=== PATIENT | male | born 1945 | race Caucasian/White ===

== ENCOUNTER 2016-06-12 17:38 | Emergency (ER) | payer MEDICARE ==
[~2016-06-12] VITALS: Ht 175.3 cm; Wt 81.6 kg
[~2016-06-12 17:38] MED LIST: CIPR-226 PO
--- OUTSIDE RECORDS SUMMARY | 2016-06-12 17:44 | XMS REPORT | Continuity of Care Document ---
Author Author [facility] Organization [facility] Address Unknown Phone Unavailable Allergies Medications Problems Date Dx Coded Attending Type Code Diagnosis Diagnosed By 06/11/2015 RESHMA CAM APRN Ot N20.0 06/11/2015 RESHMA CAM APRN Ot N28.9 06/11/2015 RESHMA CAM APRN Ot N40.1 06/11/2015 RESHMA CAM APRN Ot R91.8 Procedures Results Encounters ACCT No. Visit Date/Time Discharge Status Pt. Type Provider Facility Loc./Unit Complaint [id number] 06/11/2015 17:45:00 2015 19:33:00 DIS Emergency RESHMA CAM APRN [facility] ER [id number] 06/12/2016 17:39:00 ACT Emergency MICHAELLE MARSH, MINO Medrano [facility] ER CP
[2016-06-12 18:08] LABS: BASOPHILS # (AUTO) 0.1 10^3/uL (0.0-0.1); BASOPHILS % (AUTO) 1 % (0-10); EOSINOPHILS # (AUTO) 0.1 10^3/uL (0.0-0.3); EOSINOPHILS % (AUTO) 1 % (0-10); LYMPHOCYTES # (AUTO) 1.7 X 10^3 (1.0-4.0); LYMPHOCYTES % (AUTO) 15 % (12-44); MEAN CORPUSCULAR HEMOGLOBIN 29 PG (25-34); MEAN CORPUSCULAR HGB CONC 33 G/DL (32-36); MEAN CORPUSCULAR VOLUME 86 FL (80-99); MEAN PLATELET VOLUME 9.1 FL (7.4-10.4); MONOCYTES # (AUTO) 0.5 X 10^3 (0.0-1.0); MONOCYTES % (AUTO) 5 % (0-12); NEUTROPHILS # (AUTO) 8.8 X 10^3 (1.8-7.8); NEUTROPHILS % (AUTO) 79 % (42-75); PLATELET COUNT 343 10^3/uL (130-400); RED BLOOD COUNT 5.15 10^6/uL (4.35-5.85); WHITE BLOOD COUNT 11.1 10^3/uL (4.3-11.0)
[2016-06-12 18:11] LABS: PROTHROMBIN TIME PATIENT 12.9 SEC (12.2-14.7)
[2016-06-12] MEDS: ASPIRIN 81 MG CHEW (CHILDREN'S ASA) PO ONE (18:18)
[2016-06-12] MEDS: KETOROLAC 30 MG/ML VIAL IVP ONE (18:18)
[2016-06-12 18:19] LABS: ALANINE AMINOTRANSFERASE 20 U/L (0-55); ANION GAP 9 MMOL/L (5-14); ASPARTATE AMINO TRANSFERASE 22 U/L (5-34); BILIRUBIN,TOTAL 1.1 MG/DL (0.1-1.0); BLOOD UREA NITROGEN 16 MG/DL (7-18); BUN/CREATININE RATIO 18; CARBON DIOXIDE 23 MMOL/L (21-32); CHLORIDE 108 MMOL/L (98-107); CREATININE SERUM 0.87 MG/DL (0.60-1.30); GFR ESTIMATED > 60; GLUCOSE 113 MG/DL (70-105); MAGNESIUM 1.9 MG/DL (1.8-2.4); POTASSIUM 4.2 MMOL/L (3.6-5.0); SODIUM 140 MMOL/L (135-145)
[2016-06-12 18:26] LABS: MYOGLOBIN SERUM 73.4 NG/ML (10.0-92.0)
--- NOTE | 2016-06-12 18:49 | Diagnostic Imaging Report ---
EXAM: CHEST PA/LAT (2 VIEW) INDICATION: Chest pain. COMPARISON: None. FINDINGS: Normal heart size and pulmonary vascularity. No focal pulmonary opacity, pleural effusion or pneumothorax. Calcified aorta. No acute osseous findings. IMPRESSION: No acute cardiopulmonary findings. Dictated by: Dictated on workstation # [id number]
[2016-06-12] MEDS: IOHEXOL 350 MG/ML 150 ML (OMNIPAQUE 350) VIAL IV ONE (18:51)
[2016-06-12] MEDS: CATHETER FLUSH 10 ML SYR IV PRN (18:51)
[2016-06-12] MEDS: NS 100 ML (IVPB) BAG IV ONE (18:51)
--- NOTE | 2016-06-12 19:02 | ED Chest Pain ---
General Chief Complaint: Chest Pain Stated Complaint: CP Nursing Triage Note: c/o dizziness, chest pain, and cough. Feels weak. Chills reported. Vomited x 2. Onset 1300 today Nursing Sepsis Screen: No Definite Risk Source: patient, EMS Exam Limitations: no limitations History of Present Illness Time seen by provider: 17:47 Initial Comments This 70-year-old gentleman presents to the emergency room with complaints of chest pain to the right of the sternum that is tender to palpation. It started this morning and is rated as 4/10. He also complains of a vertigo or dizziness described as a spinning sensation. The dizziness is worse with head movement. His chest pain is constant. He also remarks intermittent chronic chest pain with inspiration which he attributes to prior rib injuries. His present chest pain is more intense and longer lasting than he is used to. He vomited 2 today as well. He reports mild cough today. He reports having chronic chills at night. Review of his chart notes a CT scan performed a year ago noting pulmonary nodules in the right lower lung. He has not had follow-up as instructed regarding these nodules. She has no focal neurologic complaints associated with his dizziness. Allergies and Home Medications Allergies Coded Allergies: No Known Drug Allergies (Unverified , 06/12/16) Home Medications Ciprofloxacin HCl 250 Mg Tablet #14 250 MG PO BID Prescribed by: RESHMA CAM on 06/11/151909 Meclizine HCl 25 Mg Tablet #20 25 MG PO TID PRN PRN DIZZINESS Prescribed by: KIRBY DECKER on 06/12/161957 Review of Systems Constitutional: no symptoms reported EENTM: No Symptoms Reported Respiratory: See HPI Cardiovascular: No Symptoms Reported Gastrointestinal: See HPI Genitourinary: No Symptoms Reported Musculoskeletal: see HPI Skin: no symptoms reported Psychiatric/Neurological: See HPI Endocrine: No Symptoms Reported Past Exwhgxh-Sspzko-Hbproc Hx Patient Social History Alcohol Use: Denies Use Recreational Drug Use: No Smoking Status: Former Smoker Former Smoker/When Quit: Jan 24, 2014 Recent Foreign Travel: No Contact w/Someone Who Travel: No Recent Infectious Disease Expo: No Recent Hopitalizations: No Immunizations Up To Date Tetanus Booster (TDap): More than 5yrs Seasonal Allergies Seasonal Allergies: Yes Surgeries HX Surgeries: Yes (bilateral carpal tunnel/hernia repair) Surgeries: Abdominal (hernia repair), Orthopedic (carpal tunnel) Respiratory Hx Respiratory Disorders: No Cardiovascular Hx Cardiac Disorders: No Neurological Hx Neurological Disorders: No Genitourinary Hx Genitourinary Disorders: Yes Genitourinary Disorders: Benign Prostatic Hyperpl Gastrointestinal Hx Gastrointestinal Disorders: Yes (pt was just constipated up until yesterday) Musculoskeletal Hx Musculoskeletal Disorders: No Endocrine Hx Endocrine Disorders: No HEENT HX ENT Disorders: No Cancer Hx Cancer: No Psychosocial Hx Psychiatric Problems: Yes Behavioral Health Disorders: Depression Integumentary HX Skin/Integumentary Disorder: No Blood Transfusions Hx Blood Disorders: No Family Medical History Family Medial History: Patient reports no known family medical history. Physical Exam Vital Signs Vital Sign - Last 12Hours 06/12/16 17:45 Temp 98.1 Pulse 83 Resp 18 B/P 137/87 Pulse Ox 96 O2 Delivery Room Air Capillary Refill : Less Than 3 Seconds General Appearance: No Apparent Distress WD/WN HEENT: PERRL/EOMI Normal ENT Inspection Neck: Normal Inspection Respiratory: Lungs Clear Normal Breath Sounds No Accessory Muscle Use No Respiratory Distress Other (right lower anterior chest tender to palpation) Cardiovascular: Regular Rate, Rhythm No Edema No Murmur Normal Peripheral Pulses Gastrointestinal: Normal Bowel Sounds No Organomegaly Soft Tenderness (mild in the epigastrium and right upper quadrant) Extremity: Normal Inspection Non Tender No Calf Tenderness No Pedal Edema Other (negative Lilia) Neurologic/Psychiatric: Alert Oriented x3 No Motor/Sensory Deficits Normal 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-XII Norm as Tested Skin: Normal Color Warm/Dry Progress/Results/Core Measures Results/Orders Lab Results Laboratory Tests Test 06/12/16 17:48 Range/Units Activated Partial Thromboplast Time 27 24-35 SEC Alanine Aminotransferase (ALT/SGPT) 20 0-55 U/L Albumin 4.0 3.2-4.5 G/DL Alkaline Phosphatase 104 40-136 U/L Anion Gap 9 5-14 MMOL/L Aspartate Amino Transf (AST/SGOT) 22 5-34 U/L BUN/Creatinine Ratio 18 Basophils # (Auto) 0.1 0.0-0.1 10^3/uL Basophils (%) (Auto) 1 0-10 % Blood Urea Nitrogen 16 7-18 MG/DL Calcium Level 9.0 8.5-10.1 MG/DL Carbon Dioxide Level 23 21-32 MMOL/L Chloride Level 108 H 98-107 MMOL/L Creatinine 0.87 0.60-1.30 MG/DL Eosinophils # (Auto) 0.1 0.0-0.3 10^3/uL Eosinophils (%) (Auto) 1 0-10 % Estimat Glomerular Filtration Rate > 60 Glucose Level 113 H 70-105 MG/DL Hematocrit 45 40-54 % Hemoglobin 14.8 13.3-17.7 G/DL INR Comment 1.0 0.8-1.4 Lipase 11 8-78 U/L Lymphocytes # (Auto) 1.7 1.0-4.0 X 10^3 Lymphocytes (%) (Auto) 15 12-44 % Magnesium Level 1.9 1.8-2.4 MG/DL Mean Corpuscular Hemoglobin 29 25-34 PG Mean Corpuscular Hemoglobin Concent 33 32-36 G/DL Mean Corpuscular Volume 86 80-99 FL Mean Platelet Volume 9.1 7.4-10.4 FL Monocytes # (Auto) 0.5 0.0-1.0 X 10^3 Monocytes (%) (Auto) 5 0-12 % Myoglobin 73.4 10.0-92.0 NG/ML Neutrophils # (Auto) 8.8 H 1.8-7.8 X 10^3 Neutrophils (%) (Auto) 79 H 42-75 % Platelet Count 343 130-400 10^3/uL Potassium Level 4.2 3.6-5.0 MMOL/L Prothrombin Time 12.9 12.2-14.7 SEC Red Blood Count 5.15 4.35-5.85 10^6/uL Red Cell Distribution Width 13.0 10.0-14.5 % Sodium Level 140 135-145 MMOL/L Total Bilirubin 1.1 H 0.1-1.0 MG/DL Total Protein 7.0 6.4-8.2 G/DL Troponin I < 0.30 <0.30 NG/ML White Blood Count 11.1 H 4.3-11.0 10^3/uL My Orders Orders-KIRBY SOLORZANO MD Cbc With Automated Diff (06/12/16 17:58) Magnesium (06/12/16 17:58) Ekg Tracing (06/12/16 17:58) Cardiac Profile 1 (06/12/16 17:58) Comprehensive Metabolic Panel (06/12/16 17:58) Myoglobin Serum (06/12/16 17:58) Protime With Inr (06/12/16 17:58) Partial Thromboplastin Time (06/12/16 17:58) O2 (06/12/16 17:58) Monitor-Rhythm Ecg Trace Only (06/12/16 17:58) Aspirin Chewable Tablet (Baby Aspirin Ch (06/12/16 18:00) Saline Lock/Iv-Start (06/12/16 17:58) Chest Pa/Lat (2 View) (06/12/16 17:58) Ketorolac Injection (Toradol Injection) (06/12/16 18:00) Lipase (06/12/16 18:02) Ct Angio Chest W (06/12/16 18:30) Iohexol Injection (Omnipaque 350 Mg/Ml 1 (06/12/16 18:45) Di Iv Start (Assessment) .on IV start (06/12/16 18:44) Sodium Chloride Flush (Catheter Flush Sy (06/12/16 18:45) Ns (Ivpb) (Sodium Chloride 0.9% Ivpb Bag (06/12/16 18:45) Meclizine Tablet (Antivert Tablet) (06/12/16 19:15) Medications Given in ED Current Medications Medications Dose Ordered Sig/Kisha Route Start Time Stop Time Status Last Admin Dose Admin Aspirin 324 mg ONCE ONCE PO 06/12/16 18:00 06/12/16 18:03 DC 06/12/16 18:18 324 MG Iohexol 150 ml ONCE ONCE IV 06/12/16 18:45 06/12/16 18:46 DC 06/12/16 18:51 125 ML Ketorolac Tromethamine 15 mg ONCE ONCE IVP 06/12/16 18:00 06/12/16 18:03 DC 06/12/16 18:18 15 MG Meclizine HCl 25 mg ONCE ONCE PO 06/12/16 19:15 06/12/16 19:16 DC 06/12/16 19:28 25 MG Sodium Chloride 100 ml ONCE ONCE IV 06/12/16 18:45 06/12/16 18:46 DC 06/12/16 18:51 80 ML Vital Signs/I&O Vital Sign - Last 12Hours 06/12/16 06/12/16 06/12/16/10/17 17:45 17:50 18:18 18:18 Temp 98.1 98.1 98.1 Pulse 83 Resp 18 B/P 137/87 Pulse Ox 96 O2 Delivery Room Air Room Air 06/12/16 20:02 Temp 98.7 Pulse 68 Resp 14 Pulse Ox 98 Blood Pressure Mean: 104 Progress Note #1: Time: 19:01 Progress Note Patient's pain has improved to 2/10 with administration of Toradol. CT angiogram of the chest is being performed to further evaluate for this atypical chest pain and prior history of pulmonary nodules found on CT 2 years ago. Patient has not yet had follow-up on those nodules despite recommendations to do so on his prior ER visit. Dizziness has improved without any particular treatment. Meclizine will be ordered for the residual dizziness. Progress Note #2: Time: 19:55 Progress Note Chest pain completely resolved with Toradol. Dizziness resolved with meclizine. CT angiogram was negative for pulmonary embolus. Pulmonary nodules are stable. Repeat CT in one year recommended. ECG Initial ECG Impression Date: Jun 12, 2016 Initial ECG Impression Time: 17:46 Initial ECG Rate: 83 Initial ECG Rhythm: Normal Sinus Comment Normal sinus rhythm with no ST elevation or depression. No abnormal intervals. Borderline left axis deviation. Diagnostic Imaging Diagonstic Imaging: Xray Plain Films/CT/US/NM/MRI: chest Comments Chest x-ray viewed by me and report reviewed. See report below: NAME: MIHIR RAPP [facility] REC#: [id number] PT STATUS: REG ER : 1945 PHYSICIAN: KIRBY SOLORZANO MD ADMIT DATE: 06/12/16/ER Draft Date of Exam:06/12/16 CHEST PA/LAT (2 VIEW) EXAM: CHEST PA/LAT (2 VIEW) INDICATION: Chest pain. COMPARISON: None. FINDINGS: Normal heart size and pulmonary vascularity. No focal pulmonary opacity, pleural effusion or pneumothorax. Calcified aorta. No acute osseous findings. IMPRESSION: No acute cardiopulmonary findings. Dictated on workstation # [id number] Dict: 06/12/16 1846 Trans: 06/12/16 1848 [facility] [id number] Interpreted by: ALIYA DOW MD Diagonstic Imaging: CT Plain Films/CT/US/NM/MRI: chest Comments CT angiogram of the chest viewed by me and report reviewed. See report below: NAME: MIHIR RAPP [facility] REC#: [id number] PT STATUS: REG ER : 1945 PHYSICIAN: KIRBY SOLORZANO MD ADMIT DATE: 06/12/16/ER Draft Date of Exam:06/12/16 CT ANGIO CHEST W PROCEDURE: CT angiography of the chest with contrast. TECHNIQUE: Multiple contiguous axial images were obtained through the chest after uneventful bolus administration of intravenous contrast. Reconstructed CTA MIP acquisitions were also performed. DATE: June 12, 2016. COMPARISON: Chest radiographs June 12, 2016. CT abdomen and pelvis June 11, 2015. INDICATION: 70-year-old male, right-sided chest pain. History of right lower lobe pulmonary nodules. FINDINGS: There is a right lower lobe pulmonary nodule on axial image 104 which measures 7.6 mm in size. This is unchanged since June 11, 2015. There is no additional identified pulmonary nodule. There is no new or enlarging pulmonary nodule. There is no focal airspace consolidation. There is no pneumothorax. There is no pleural effusion. The central airways are patent. There is no identified pulmonary embolus. The main pulmonary artery is not abnormally enlarged. Aortic contours are unremarkable. There is no evidence of acute aortic injury or aortic dissection. The heart is not enlarged. There is no identified pericardial effusion. There is no identified abnormally enlarged mediastinal, hilar, or axillary lymph node which specifically meets CT size criteria for adenopathy. There are calcified left hilar and AP window lymph nodes likely relating to sequela of prior granulomatous disease. There are subcentimeter short axis axillary lymph nodes. There is a lobulated mass-like area extending near the skin surface of the right anterior chest on axial image 60 which measures 2.0 x 1.5 cm in size. This is also noted on the left. This likely relates to gynecomastia bilaterally. There is an incompletely visualized low-attenuation right renal lesion compatible with a cyst in its visualized portions. There is an additional partially visualized probable right renal cyst. There is a small hiatal hernia. There are paraesophageal lymph nodes on axial image 103 which measure up to 9 mm in short axis. There is no CT apparent prominent wall thickening of the esophagus. There is no identified acute bony abnormality. IMPRESSION: CT CHEST. 1. No identified acute cardiopulmonary abnormality. 2. 7 mm right lower lobe pulmonary nodule stable since June 11, 2015. Recommend followup dedicated CT chest in one year to evaluate for two-year stability. 3. Small hiatal hernia. 4. Nonspecific paraesophageal lymph node without identified prominent esophageal wall thickening. Dictated on workstation # [id number] Dict: 06/12/161917 Trans: 06/12/161926 [facility] [id number] Interpreted by: MAGY BEARD MD Departure Impression Impression: Primary Impression: Chest wall pain Additional Impression: Vertigo Disposition: HOME, SELF-CARE Condition: Improved Departure-Patient Inst. Decision time for Depature: 19:00 Referrals: NO,LOCAL PHYSICIAN (PCP/Family) Primary Care Physician Patient Instructions: Chest Pain That Is Not Caused by the Heart (DC), Vertigo (a Type of Dizziness) Add. Discharge Instructions: Follow-up with your primary care provider as soon as possible. You need to develop a plan for follow-up on the pulmonary nodules we discussed. The radiologist has recommended a CT scan in one year to document 2 year progression. For dizziness you may take meclizine as prescribed. For chest pain take ibuprofen up to 600 mg every 6 hours as needed. Add Tylenol up to 1000 mg every 6 hours as needed. Return to emergency room if symptoms worsen. All discharge instructions reviewed with patient and/or family. Voiced understanding. Scripts Meclizine HCl 25 Mg [id number] Mg PO TID PRN DIZZINESS #20 TAB Prov:KIRBY SOLORZANO MD 06/12/16 KIRBY SOLORZANO MD Jun 12, 2016 19:02
[2016-06-12] MEDS: MECLIZINE 25 MG (ANTIVERT) TAB PO ONE (19:28)
--- NOTE | 2016-06-12 19:28 | Diagnostic Imaging Report ---
PROCEDURE: CT angiography of the chest with contrast. TECHNIQUE: Multiple contiguous axial images were obtained through the chest after uneventful bolus administration of intravenous contrast. Reconstructed CTA MIP acquisitions were also performed. DATE: June 12, 2016. COMPARISON: Chest radiographs June 12, 2016. CT abdomen and pelvis June 11, 2015. INDICATION: 70-year-old male, right-sided chest pain. History of right lower lobe pulmonary nodules. FINDINGS: There is a right lower lobe pulmonary nodule on axial image 104 which measures 7.6 mm in size. This is unchanged since June 11, 2015. There is no additional identified pulmonary nodule. There is no new or enlarging pulmonary nodule. There is no focal airspace consolidation. There is no pneumothorax. There is no pleural effusion. The central airways are patent. There is no identified pulmonary embolus. The main pulmonary artery is not abnormally enlarged. Aortic contours are unremarkable. There is no evidence of acute aortic injury or aortic dissection. The heart is not enlarged. There is no identified pericardial effusion. There is no identified abnormally enlarged mediastinal, hilar, or axillary lymph node which specifically meets CT size criteria for adenopathy. There are calcified left hilar and AP window lymph nodes likely relating to sequela of prior granulomatous disease. There are subcentimeter short axis axillary lymph nodes. There is a lobulated mass-like area extending near the skin surface of the right anterior chest on axial image 60 which measures 2.0 x 1.5 cm in size. This is also noted on the left. This likely relates to gynecomastia bilaterally. There is an incompletely visualized low-attenuation right renal lesion compatible with a cyst in its visualized portions. There is an additional partially visualized probable right renal cyst. There is a small hiatal hernia. There are paraesophageal lymph nodes on axial image 103 which measure up to 9 mm in short axis. There is no CT apparent prominent wall thickening of the esophagus. There is no identified acute bony abnormality. IMPRESSION: CT CHEST. 1. No identified acute cardiopulmonary abnormality. 2. 7 mm right lower lobe pulmonary nodule stable since June 11, 2015. Recommend followup dedicated CT chest in one year to evaluate for two-year stability. 3. Small hiatal hernia. 4. Nonspecific paraesophageal lymph node without identified prominent esophageal wall thickening. Dictated by: Dictated on workstation # [id number]
[2016-06-12] MEDS ORDERED: MECL-106 PO (19:58)
[2016-06-12 20:02] VITALS: BP 149/73
== END 2016-06-12 20:07 | disposition home or self-care (01) ==
LOC: EDUNIT# 17:38 → ER 17:39
DX: R07.89 Other chest pain (principal); R42 Dizziness and giddiness; R91.8 Other nonspecific abnormal finding of lung field; K44.9 Diaphragmatic hernia without obstruction or gangrene; R59.0 Localized enlarged lymph nodes
CPT/HCPCS: 36415; 71020; 71275; 80053; 83690; 83735; 83874; 84484; 85025; 85610; 85730; 93005; 93041; 96374

== ENCOUNTER 2016-10-01 20:54 | Emergency (ER) | payer MEDICARE ==
[~2016-10-01] VITALS: Ht 175.3 cm; Wt 81.6 kg
[~2016-10-01 20:54] MED LIST changes: +MECL-106 PO
[2016-10-01 21:11] LABS: MEAN PLATELET VOLUME 8.6 FL (7.4-10.4); RED BLOOD COUNT 5.01 10^6/uL (4.35-5.85); RED CELL DISTRIBUTION WIDTH 13.3 % (10.0-14.5); WHITE BLOOD COUNT 15.6 10^3/uL (4.3-11.0)
[2016-10-01] MEDS ORDERED: NS 100 ML (IVPB) BAG IV ONE (21:15)
[2016-10-01] MEDS ORDERED: IOHEXOL 350 MG/ML 100 ML (OMNIPAQUE 350) VIAL IV ONE (21:15)
[2016-10-01] MEDS ORDERED: CATHETER FLUSH 10 ML SYR IV PRN (21:15)
--- OUTSIDE RECORDS SUMMARY | 2016-10-01 21:18 | XMS REPORT | Continuity of Care Document ---
Author Author [facility] Organization [facility] Address Unknown Phone Unavailable Allergies Active Description Code Type Severity Reaction Onset Reported/Identified Relationship to Patient Clinical Status Yes No Known Drug Allergies [id number] Drug Allergy Unknown N/ A 06/12/2016 Medications Problems Date Dx Coded Attending Type Code Diagnosis Diagnosed By 06/11/2015 RESHMA CAM SODIUM METHYLATE OPERATOR Ot N20.0 06/11/2015 RESHMA CAM SODIUM METHYLATE OPERATOR Ot N28.9 06/11/2015 RESHMA CAM SODIUM METHYLATE OPERATOR Ot N40.1 06/11/2015 RESHMA CAM SODIUM METHYLATE OPERATOR Ot R91.8 06/12/2016 KIRBY SOLORZANO MD T Ot K44.9 DIAPHRAGMATIC HERNIA WITHOUT OBSTRUCTION 06/12/2016 KIRBY SOLORZANO MD T Ot R07.89 OTHER CHEST PAIN 06/12/2016 KIRBY SOLORZANO MD T Ot R07.9 CHEST PAIN, UNSPECIFIED 06/12/2016 KIRBY SOLORZANO MD T Ot R42 DIZZINESS AND GIDDINESS 06/12/2016 KIRBY SOLORZANO MD T Ot R59.0 LOCALIZED ENLARGED LYMPH NODES 06/12/2016 KIRBY SOLORZANO MD T Ot R91.8 OTHER NONSPECIFIC ABNORMAL FINDING OF PJ 06/14/2016 KIRBY SOLORZANO MD T Ot K44.9 DIAPHRAGMATIC HERNIA WITHOUT OBSTRUCTION 06/14/2016 KIRBY SOLORZANO MD T Ot R07.89 OTHER CHEST PAIN 06/14/2016 KIRBY SOLORZANO MD T Ot R07.9 CHEST PAIN, UNSPECIFIED 06/14/2016 KIRBY SOLORZANO MD T Ot R42 DIZZINESS AND GIDDINESS 06/14/2016 KIRBY SOLORZNAO MD T Ot R59.0 LOCALIZED ENLARGED LYMPH NODES 06/14/2016 KIRBY SOLORZANO MD T Ot R91.8 OTHER NONSPECIFIC ABNORMAL FINDING OF PJ Procedures Results Test Result Range Complete blood count (CBC) with automated white blood cell (WBC) differential - 06/12/16 17:48 Blood leukocytes automated count (number/volume) 11.1 10*3/ uL 4.3-11.0 Blood erythrocytes automated count (number/volume) 5.15 10*6 /uL 4.35-5.85 Venous blood hemoglobin measurement (mass/volume) 14.8 g/dL 13.3-17.7 Blood hematocrit (volume fraction) 45 % 40-54 Automated erythrocyte mean corpuscular volume 86 [foz_us] 80-99 Automated erythrocyte mean corpuscular hemoglobin (mass per erythrocyte) 29 pg 25-34 Automated erythrocyte mean corpuscular hemoglobin concentration measurement ( mass/volume) 33 g/dL 32-36 Automated erythrocyte distribution width ratio 13.0 % 10.0-14.5 Automated blood platelet count (count/volume) 343 10*3/uL 130-400 Automated blood platelet mean volume measurement 9.1 [foz_us ] 7.4-10.4 Automated blood neutrophils/100 leukocytes 79 % 42-75 Automated blood lymphocytes/100 leukocytes 15 % 12-44 Blood monocytes/100 leukocytes 5 % 0-12 Automated blood eosinophils/100 leukocytes 1 % 0-10 Automated blood basophils/100 leukocytes 1 % 0-10 Blood neutrophils automated count (number/volume) 8.8 10*3 1.8-7.8 Blood lymphocytes automated count (number/volume) 1.7 10*3 1.0-4.0 Blood monocytes automated count (number/volume) 0.5 10*3 0.0-1.0 Automated eosinophil count 0.1 10*3/uL 0.0-0.3 Automated blood basophil count (count/volume) 0.1 10*3/uL 0.0-0.1 PT panel in platelet poor plasma by coagulation assay - 06/12/16 17:48 Prothrombin time (PT) in platelet poor plasma by coagulation assay 12.9 s 12.2-14.7 INR in platelet poor plasma or blood by coagulation assay 1.0 0.8-1.4 Activated partial thromboplastin time (aPTT) in platelet poor plasma bycoagulation assay - 06/12/16 17:48 Activated partial thromboplastin time (aPTT) in platelet poor plasma bycoagulation assay 27 s 24-35 Comprehensive metabolic panel - 06/12/16 17:48 Serum or plasma sodium measurement (moles/volume) 140 mmol/ L 135-145 Serum or plasma potassium measurement (moles/volume) 4.2 mmol/L 3.6-5.0 Serum or plasma chloride measurement (moles/volume) 108 mmol /L 98-107 Carbon dioxide 23 mmol/L 21-32 Serum or plasma anion gap determination (moles/volume) 9 mmol/L 5-14 Serum or plasma urea nitrogen measurement (mass/volume) 16 mg/dL 7-18 Serum or plasma creatinine measurement (mass/volume) 0.87 mg /dL 0.60-1.30 Serum or plasma urea nitrogen/creatinine mass ratio 18 NRG Serum or plasma creatinine measurement with calculation of estimated glomerular filtration rate > NRG Serum or plasma glucose measurement (mass/volume) 113 mg/dL 70-105 Serum or plasma calcium measurement (mass/volume) 9.0 mg/dL 8.5-10.1 Serum or plasma total bilirubin measurement (mass/volume) 1.1 mg/dL 0.1-1.0 Serum or plasma alkaline phosphatase measurement (enzymatic activity/volume) 104 U/L 40-136 Serum or plasma aspartate aminotransferase measurement (enzymatic activity/ volume) 22 U/L 5-34 Serum or plasma alanine aminotransferase measurement (enzymatic activity/volume ) 20 U/L 0-55 Serum or plasma protein measurement (mass/volume) 7.0 g/dL 6.4-8.2 Serum or plasma albumin measurement (mass/volume) 4.0 g/dL 3.2-4.5 Magnesium - 06/12/16 17:48 Magnesium 1.9 mg/dL 1.8-2.4 Lipase - 06/12/16 17:48 Lipase 11 U/L 8-78 Serum or plasma troponin i.cardiac measurement (mass/volume) - 06/12/16 17:48 Serum or plasma troponin i.cardiac measurement (mass/volume) < ng/mL <0.30 Myoglobin, serum - 06/12/16 17:48 Myoglobin, serum 73.4 ng/mL 10.0-92.0 Encounters ACCT No. Visit Date/Time Discharge Status Pt. Type Provider Facility Loc./Unit Complaint [id number] 06/12/2016 17:39:00 2016 20:07:00 DIS Emergency JEANINE MARSH, KIRBY Pablo [facility] ER [id number] 06/11/2015 17:45:00 2015 19:33:00 DIS Emergency RESHMA CAM APRN [facility] ER
[2016-10-01] MEDS ORDERED: TETANUS,DIPTH,PERTUSS P/F (BOOSTRIX) 0.5 ML VIAL IM ONE (21:30)
[2016-10-01] MEDS ORDERED: ceFAZolin 2 GM/50 ML NS 50 ML IV ONE (21:30)
[2016-10-01 21:35] LABS: ALANINE AMINOTRANSFERASE 29 U/L (0-55); ALBUMIN 3.5 GM/DL (3.2-4.5); ALCOHOL < 10 MG/DL (<10); ASPARTATE AMINO TRANSFERASE 33 U/L (5-34); BILIRUBIN,DIRECT 0.2 MG/DL (0.0-0.3); BILIRUBIN,INDIRECT 0.7 MG/DL; BILIRUBIN,TOTAL 0.9 MG/DL (0.1-1.0); BLOOD UREA NITROGEN 14 MG/DL (7-18); BUN/CREATININE RATIO 14; CALCIUM 8.6 MG/DL (8.5-10.1); CARBON DIOXIDE 19 MMOL/L (21-32); CREATININE SERUM 0.97 MG/DL (0.60-1.30); GFR ESTIMATED > 60; GLUCOSE 142 MG/DL (70-105); TOTAL PROTEIN 6.7 GM/DL (6.4-8.2)
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
[2016-10-01 21:41] LABS: ANION GAP 11 MMOL/L (5-14); CHLORIDE 112 MMOL/L (98-107); POTASSIUM 3.3 MMOL/L (3.6-5.0); SODIUM 142 MMOL/L (135-145)
[2016-10-01] MEDS ORDERED: TRANEXAMIC ACID INJECTION 1,000 MG in NS (IVPB) 250 ML IV SCH (21:45)
[2016-10-01] MEDS ORDERED: TRANEXAMIC ACID INJECTION 1,000 MG in NS (IVPB) 50 ML IV ONE (21:45)
[2016-10-01] MEDS ORDERED: ONDANSETRON 4 MG/2 ML (SDV) Z0FRAN ONE (21:58)
[2016-10-01] MEDS ORDERED: fentaNYL INJECTION 100 MCG/2 ML AMP IVP ONE (22:00)
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
[2016-10-01] MEDS ORDERED: ONDANSETRON 4 MG/2 ML (SDV) Z0FRAN IVP ONE (22:15)
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
[2016-10-01 22:31] VITALS: BP 150/72
[2016-10-01] MEDS ORDERED: TAMS0.4C2 (23:54)
== END 2016-10-01 22:31 | disposition short-term general hospital (02) ==
LOC: EDUNIT# 20:54 → ER 20:55
DX: S02.32XA Fracture of orbital floor, left side, initial encounter for closed fracture (principal); S02.82XA Fracture of other specified skull and facial bones, left side, initial encounter for closed fracture; S02.19XA Other fracture of base of skull, initial encounter for closed fracture; S06.0X1A Concussion with loss of consciousness of 30 minutes or less, initial encounter; S22.42XA Multiple fractures of ribs, left side, initial encounter for closed fracture; S27.321A Contusion of lung, unilateral, initial encounter; S51.822A Laceration with foreign body of left forearm, initial encounter; V24.4XXA Motorcycle driver injured in collision with heavy transport vehicle or bus in traffic accident, initial encounter; Z23 Encounter for immunization
CPT/HCPCS: 36415; 70450; 70486; 71010; 71260; 72125; 72128; 72131; 74177; 80048; 80076; 80320; 85027; 90471; 90715; 93041; 96365; 96366; 96367; 96375

== ENCOUNTER → 2016-11-05 | Outpatient (CLI) | payer OTHER, MEDICARE ==
[~2016-11-05] MED LIST changes: +TAMS0.4C2
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
--- NOTE | 2016-11-05 19:02 | Diagnostic Imaging Report ---
EXAMINATION: Three views of the left ankle. INDICATION: Left ankle pain. FINDINGS: There is no fracture, dislocation, or radiopaque foreign body. The ankle mortise is normal in configuration. IMPRESSION: Unremarkable exam. Dictated by: Dictated on workstation # [id number]
--- NOTE | 2016-11-05 19:04 | Diagnostic Imaging Report ---
EXAMINATION: Three views of the left foot. INDICATION: Left foot pain. FINDINGS: There is no fracture, dislocation, or radiopaque foreign body. The alignment at the joints in the foot is satisfactory. The interphalangeal joints and mid and distal phalanges are not well seen on the AP and oblique views due to flexion position. IMPRESSION: The [id number] toes are not well evaluated on this exam. No definite abnormality. Dictated by: Dictated on workstation # [id number]
== END ==
LOC: RAD 13:44
PROVIDERS: ATTEND Family Medicine
DX: M25.572 Pain in left ankle and joints of left foot (principal); J94.8 Other specified pleural conditions
CPT/HCPCS: 71020; 73610; 73630

== ENCOUNTER → 2017-03-31 | Outpatient (CLI) | payer MEDICARE | LOC: LAB 09:58 | PROVIDERS: ATTEND Urology | DX: R97.20 Elevated prostate specific antigen [PSA] (principal) | CPT/HCPCS: 36415; 84153 ==

== ENCOUNTER → 2017-09-06 | Outpatient (CLI) | payer MEDICARE ==
--- NOTE | 2017-09-06 15:30 | Diagnostic Imaging Report ---
INDICATION: Foot pain. COMPARISON: None. FINDINGS: Three views of the right foot are obtained. No acute fracture, malalignment or osseous destructive process is seen. There is mild degenerative change of the first MTP joint with joint space narrowing and spurring. There is minimal plantar calcaneal spurring. IMPRESSION: Degenerative changes of the first MTP joint and minimal plantar calcaneal spurring. No acute osseous abnormality is suspected. Dictated by: Dictated on workstation # [id number]
== END ==
LOC: RAD 14:44
PROVIDERS: ATTEND Nurse Practitioner Family
DX: M19.071 Primary osteoarthritis, right ankle and foot (principal)
CPT/HCPCS: 73630

== ENCOUNTER → 2018-05-18 | Outpatient (CLI) | payer MEDICARE | LOC: LAB 10:43 | PROVIDERS: ATTEND Urology | DX: R97.20 Elevated prostate specific antigen [PSA] (principal) | CPT/HCPCS: 36415; 84153 ==

== ENCOUNTER → 2018-10-10 | Outpatient (CLI) | payer MEDICARE ==
--- NOTE | 2018-10-10 13:14 | Diagnostic Imaging Report ---
INDICATION: Preop left upper extremity pain and weakness. FINDINGS: Old-appearing deformities to the left chest wall and postoperative left clavicle are noted. Lungs themselves showed no acute infiltrate, effusion, or pneumothorax. IMPRESSION: Old left-sided thoracic deformities and postoperative residua. No acute-appearing cardiopulmonary abnormality. Dictated by: Dictated on workstation # [id number]
== END ==
LOC: CARD 11:34
PROVIDERS: ATTEND Orthopaedic Surgery
DX: Z01.818 Encounter for other preprocedural examination (principal); M79.622 Pain in left upper arm; M75.102 Unspecified rotator cuff tear or rupture of left shoulder, not specified as traumatic; R53.1 Weakness; M95.4 Acquired deformity of chest and rib; Z98.890 Other specified postprocedural states
CPT/HCPCS: 71045; 93005

== ENCOUNTER → 2018-10-28 | Outpatient (CLI) | payer MEDICARE ==
[~2018-10-28] MED LIST changes: +CEFD300C3 PO; +PANT40TA2 PO; +PANT40TA3 PO; +RIVA15TA PO; +RIVA20TA PO; +TAMS0.4C98 PO
[2018-10-28 14:21] LABS: BASOPHILS % (AUTO) 0 % (0-10); EOSINOPHILS # (AUTO) 0.1 10^3/uL (0.0-0.3); EOSINOPHILS % (AUTO) 1 % (0-10); HEMATOCRIT 28 % (40-54); HEMOGLOBIN 8.2 G/DL (13.3-17.7); LYMPHOCYTES # (AUTO) 1.8 X 10^3 (1.0-4.0); LYMPHOCYTES % (AUTO) 13 % (12-44); MEAN CORPUSCULAR HEMOGLOBIN 20 PG (25-34); MEAN CORPUSCULAR HGB CONC 29 G/DL (32-36); MEAN CORPUSCULAR VOLUME 67 FL (80-99); MEAN PLATELET VOLUME 8.6 FL (7.4-10.4); MONOCYTES # (AUTO) 1.2 X 10^3 (0.0-1.0); MONOCYTES % (AUTO) 9 % (0-12); NEUTROPHILS # (AUTO) 11.1 X 10^3 (1.8-7.8); NEUTROPHILS % (AUTO) 78 % (42-75); PLATELET COUNT 595 10^3/uL (130-400); WHITE BLOOD COUNT 14.3 10^3/uL (4.3-11.0)
[2018-10-28 14:26] LABS: INR 1.1 (0.8-1.4); PROTHROMBIN TIME PATIENT 14.4 SEC (12.2-14.7)
[2018-10-28 14:34] LABS: ALANINE AMINOTRANSFERASE 37 U/L (0-55); ALKALINE PHOSPHATASE 315 U/L (40-136); BILIRUBIN,TOTAL 0.9 MG/DL (0.1-1.0); BUN/CREATININE RATIO 17; CALCIUM 8.8 MG/DL (8.5-10.1); CARBON DIOXIDE 20 MMOL/L (21-32); CHLORIDE 103 MMOL/L (98-107); CREATININE SERUM 0.87 MG/DL (0.60-1.30); GFR ESTIMATED > 60; GLUCOSE 91 MG/DL (70-105); POTASSIUM 3.8 MMOL/L (3.6-5.0); SODIUM 136 MMOL/L (135-145)
[2018-10-28 14:54] LABS: ANISOCYTOSIS MARKED; BAND NEUTROPHILS 0 %; BASOPHILS % (MANUAL) 0 %; EOSINOPHILS % (MANUAL) 0 %; HYPOCHROMASIA MODERATE; LYMPHOCYTES % (MANUAL) 15 %; MICROCYTOSIS MODERATE; MONOCYTES % (MANUAL) 5 %; NEUTROPHILS % (MANUAL) 80 %; POLYCHROMASIA SLIGHT; TARGET CELLS SLIGHT
[2018-10-28 14:55] LABS: ELLIPT/OVALOCYTES SLIGHT
[2018-10-28 14:56] LABS: ERYTHROCYTE SEDIMENTATION RATE 36 MM/HR (0-30)
== END ==
LOC: CARD 13:43
PROVIDERS: ATTEND Orthopaedic Surgery
DX: Z01.810 Encounter for preprocedural cardiovascular examination (principal); Z01.812 Encounter for preprocedural laboratory examination; M75.102 Unspecified rotator cuff tear or rupture of left shoulder, not specified as traumatic
CPT/HCPCS: 36415; 80053; 85007; 85027; 85610; 85652; 85730; 93005

== ENCOUNTER 2018-11-03 14:21 | Inpatient (IN) | payer MEDICARE ==
[~2018-11-03] VITALS: Ht 170.2 cm; Wt 84.6 kg
[~2018-11-03 14:21] MED LIST changes: -CEFD300C3 PO; -PANT40TA2 PO; -PANT40TA3 PO; -RIVA15TA PO; -RIVA20TA PO; -TAMS0.4C98 PO
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
--- OUTSIDE RECORDS SUMMARY | 2018-11-03 14:29 | XMS REPORT ---
Author Author FANI MARCELINO Organization [facility] Address [address] [place] [address] Care Team Providers Care Dynamo Tender Name Role Phone FANI MARCELINO Unavailable PROBLEMS Type Condition ICD9-CM Code [id number] Code Onset Dates Condition Status SNOMED Code Problem Benign prostatic hyperplasia with lower urinary tract symptoms N40.1 Active [id number] ALLERGIES No Information ENCOUNTERS Encounter Location Date Diagnosis [address] [place] [id number] Oct, Hyponatremia E87.1 ; Urinary retention R33.9 ; Multiple fractures T14.8 and Benign prostatic hyperplasia with lower urinary tract symptoms N40.1 [facility] [id number] [address] Oct, [facility] [id number] [id number] Oct, [facility] [id number] [id number] Oct, [facility] [address] [facility] [id number] [address] Oct, [facility] [address] [id number] [id number] Oct, IMMUNIZATIONS No Known Immunizations SOCIAL HISTORY Never Assessed REASON FOR VISIT Refill request PLAN OF CARE VITAL SIGNS MEDICATIONS Unknown Medications RESULTS No Results PROCEDURES No Known procedures INSTRUCTIONS MEDICATIONS ADMINISTERED No Known Medications
--- OUTSIDE RECORDS SUMMARY | 2018-11-03 14:29 | XMS REPORT ---
Author Author FANI MARCELINO Organization [facility] Address [address] [place] [address] Care Team Providers Care Qa Automation Developer Name Role Phone FANI MARCELINO Unavailable PROBLEMS Type Condition ICD9-CM Code SXC25-ZP Code Onset Dates Condition Status SNOMED Code Problem Benign prostatic hyperplasia with lower urinary tract symptoms N40.1 Active [id number] ALLERGIES No Information ENCOUNTERS Encounter Location Date Diagnosis [address] [place] [phone] Oct, Hyponatremia E87.1 ; Urinary retention R33.9 ; Multiple fractures T14.8 and Benign prostatic hyperplasia with lower urinary tract symptoms N40.1 [facility] [id number] [address] Oct, [facility] [id number] [id number] Oct, [facility] [id number] [id number] Oct, [facility] [address] [facility] [id number] [address] Oct, [facility] [address] [id number] [id number] Oct, IMMUNIZATIONS No Known Immunizations SOCIAL HISTORY Never Assessed REASON FOR VISIT pain med fill PLAN OF CARE VITAL SIGNS MEDICATIONS Medication Instructions Dosage Frequency Start Date End Date Duration Status Hydrocodone-Acetaminophen 5-325 MG Orally every 6 hrs 1 or 2 tablets as needed 6h Oct, 28 days Active RESULTS No Results PROCEDURES No Known procedures INSTRUCTIONS MEDICATIONS ADMINISTERED No Known Medications
--- OUTSIDE RECORDS SUMMARY | 2018-11-03 14:29 | XMS REPORT ---
Author Author HEATHER BORGES Organization [facility] Address [address] [place] [address] Care Team Providers Care Leather Leveler Name Role Phone HEATHER BORGES Unavailable PROBLEMS Type Condition ICD9-CM Code [id number] Code Onset Dates Condition Status SNOMED Code Problem Benign prostatic hyperplasia with lower urinary tract symptoms N40.1 Active [id number] ALLERGIES No Information ENCOUNTERS Encounter Location Date Diagnosis [address] [facility] [place] [id number] Oct, Hyponatremia E87.1 ; Urinary retention R33.9 ; Multiple fractures T14.8 and Benign prostatic hyperplasia with lower urinary tract symptoms N40.1 [facility] [address] [id number] [address] Oct, [facility] [place] [id number] [id number] Oct, [facility], [place], [facility] [id number] [id number] Oct, [facility] [address] [facility] [id number] [address] Oct, [facility], [place], [facility] [address] [id number] [id number] Oct, IMMUNIZATIONS No Known Immunizations SOCIAL HISTORY Never Assessed REASON FOR VISIT Refill request PLAN OF CARE VITAL SIGNS MEDICATIONS Medication Instructions Dosage Frequency Start Date End Date Duration Status Hydrocodone-Acetaminophen 5-325 MG Orally every 4 hrs 1 or 2 tablets as needed Oct, Active RESULTS No Results PROCEDURES No Known procedures INSTRUCTIONS MEDICATIONS ADMINISTERED No Known Medications
--- NOTE | 2018-11-03 14:31 | NUR ---
ekg by me and to by me
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
[2018-11-03 14:58] LABS: BASOPHILS % (AUTO) 0 % (0-10); EOSINOPHILS # (AUTO) 0.1 10^3/uL (0.0-0.3); EOSINOPHILS % (AUTO) 1 % (0-10); HEMATOCRIT 27 % (40-54); LYMPHOCYTES # (AUTO) 2.1 X 10^3 (1.0-4.0); LYMPHOCYTES % (AUTO) 14 % (12-44); MEAN CORPUSCULAR HEMOGLOBIN 20 PG (25-34); MEAN CORPUSCULAR HGB CONC 29 G/DL (32-36); MEAN CORPUSCULAR VOLUME 68 FL (80-99); MEAN PLATELET VOLUME 8.5 FL (7.4-10.4); MONOCYTES # (AUTO) 1.2 X 10^3 (0.0-1.0); MONOCYTES % (AUTO) 8 % (0-12); NEUTROPHILS # (AUTO) 11.3 X 10^3 (1.8-7.8); NEUTROPHILS % (AUTO) 77 % (42-75); PLATELET COUNT 520 10^3/uL (130-400); RED CELL DISTRIBUTION WIDTH 21.5 % (10.0-14.5); WHITE BLOOD COUNT 14.8 10^3/uL (4.3-11.0)
[2018-11-03 15:05] LABS: INR 1.1 (0.8-1.4)
[2018-11-03 15:13] LABS: ALANINE AMINOTRANSFERASE 35 U/L (0-55); ALBUMIN 2.9 GM/DL (3.2-4.5); ALKALINE PHOSPHATASE 282 U/L (40-136); BUN/CREATININE RATIO 22; CALCIUM 8.9 MG/DL (8.5-10.1); CARBON DIOXIDE 19 MMOL/L (21-32); CHLORIDE 105 MMOL/L (98-107); CREATINE KINASE 149 U/L (30-200); CREATININE SERUM 0.88 MG/DL (0.60-1.30); GFR ESTIMATED > 60; GLUCOSE 134 MG/DL (70-105); MAGNESIUM 1.7 MG/DL (1.8-2.4); POTASSIUM 4.3 MMOL/L (3.6-5.0); SODIUM 136 MMOL/L (135-145); TOTAL PROTEIN 6.6 GM/DL (6.4-8.2)
--- NOTE | 2018-11-03 15:16 | Diagnostic Imaging Report ---
PATIENT HISTORY: Worsening shortness of air. TECHNIQUE: Frontal view of the chest. COMPARISON: 10/10/2018. FINDINGS: There are airspace opacities in the right lung base which are new since the prior study. No pleural effusion or pneumothorax is seen. The cardiac silhouette is normal in size. There are old left-sided rib fractures. Fixation hardware of the left clavicle is noted. IMPRESSION: Airspace opacities in the right lung base concerning for pneumonia in the appropriate clinical setting. Dictated by: Dictated on workstation # [id number]
[2018-11-03 15:20] LABS: CREATINE KINASE MB 0.7 NG/ML (<6.6)
[2018-11-03 15:27] LABS: BAND NEUTROPHILS 3 %; BASOPHILS % (MANUAL) 0 %; EOSINOPHILS % (MANUAL) 0 %; HYPOCHROMASIA MODERATE; LYMPHOCYTES % (MANUAL) 16 %; MONOCYTES % (MANUAL) 6 %; NEUTROPHILS % (MANUAL) 75 %; POLYCHROMASIA SLIGHT
[2018-11-03 15:28] LABS: ANISOCYTOSIS MODERATE; MICROCYTOSIS MODERATE; POIKILOCYTOSIS SLIGHT; TARGET CELLS SLIGHT
[2018-11-03 15:29] LABS: ELLIPT/OVALOCYTES SLIGHT; TEAR DROP CELLS SLIGHT
[2018-11-03] MEDS ORDERED: AZITHROMYCIN 250 MG TAB (ZITHROMAX) PO ONE (15:30)
[2018-11-03] MEDS ORDERED: cefTRIAXone FOR IV USE 1,000 MG in WATER (STERILE) FOR INJECTION 10 ML IV ONE (15:30)
[2018-11-03] MEDS ORDERED: methylPREDNISolone 125 MG (Solu-MEDROL) VIAL IVP ONE (15:30)
[2018-11-03] MEDS ORDERED: HOLD METFORMIN - RECEIVED CONTRAST 20 ML VIAL IV SCH (15:45)
[2018-11-03] MEDS ORDERED: NS 100 ML (IVPB) BAG IV ONE (15:45)
[2018-11-03] MEDS ORDERED: IOHEXOL 350 MG/ML 100 ML (OMNIPAQUE 350) VIAL IV ONE (15:45)
[2018-11-03] MEDS ORDERED: CATHETER FLUSH 10 ML SYR IV PRN (15:45)
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
--- NOTE | 2018-11-03 16:04 | NUR ---
CARMENCITAP TO CALL REPORT AT 6490. RN TO RETURN CALL.
[2018-11-03 16:25] VITALS: BP 152/69
[2018-11-03] MEDS ORDERED: NS IV 500 ML 500 ML IV SCH (16:45)
--- NOTE | 2018-11-03 16:51 | Diagnostic Imaging Report ---
INDICATION: Weakness and imbalance. TECHNIQUE: CTA chest obtained with IV contrast bolus and axial slices and MIP reconstructions. CT abdomen and pelvis obtained with IV contrast. COMPARISON: Comparison made to 10/01/2016. CTA chest findings: Aortic arch and great vessels appear unremarkable. There is no aortic dissection or aneurysm. Pulmonary parenchymal vessels demonstrate moderate-sized pulmonary emboli in the right lower lobe branches with smaller emboli in left lower lobe branches. There are no enlarged mediastinal or hilar nodes. There are no enlarged axillary nodes. There is a small right pleural effusion. Lung parenchymal windows demonstrate some dependent atelectatic changes in the lung bases. There is no discrete pulmonary parenchymal lesion. A small hiatal hernia is noted. CT abdomen and pelvis findings: The liver shows new marked abnormality with extensive hypodense lesions throughout both lobes. The dominant mass is in the inferior portion of the right lobe of the liver, this mass measured about 12.2 x 9.1 cm. There are numerous other masses throughout both lobes of the liver. Spleen, adrenals, and pancreas appear normal. Kidneys bilaterally are unremarkable, except for a couple of tiny cysts in the left kidney and a couple of small cysts in the right kidney. There is no retroperitoneal adenopathy. There is no ascites or abnormal fluid collection. There is no pelvic mass or free fluid. Prostate gland is mildly prominent. IMPRESSION: 1. CTA chest demonstrates moderate-sized pulmonary emboli in the right lower lobe branches and small emboli in the left lower lobe branches. There is a small right pleural effusion. There is bibasilar atelectasis. A hiatal hernia is noted. 2. CT abdomen and pelvis demonstrates multifocal masses throughout the liver which are new compared to 10/01/2016. The findings may represent primary or metastatic neoplasm in the liver. There is no focal abnormalities seen elsewhere in the abdomen or pelvis except for some benign-appearing cysts in both kidneys. Dictated by: Dictated on workstation # [id number]
[2018-11-03] MEDS: MAGNESIUM 1 GM/D5W 100 ML IVPB IV SCH ×2 (17:23→18:47)
[2018-11-03] MEDS: D5 1/2 NS W/KCL 20 MEQ/L 1,000 ML IV SCH (17:23)
[2018-11-03] MEDS: ENOXAPARIN 100 MG/1 ML (LOVENOX) SYR SC SCH ×2 (17:24→17:25)
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
[2018-11-03 19:46] VITALS: BP 108/61
[2018-11-03 19:54] VITALS: BP 146/75
[2018-11-03] MEDS ORDERED: ANTACID SUSP 30 ML UDC (MYLANTA) PO PRN (20:00)
[2018-11-03] MEDS ORDERED: MILK OF MAGNESIA 400 MG/5 ML 30 ML UDC PO PRN (20:00)
[2018-11-03] MEDS ORDERED: MAGNESIUM 1 GM/100 ML IVPB 100 ML IV SCH (20:00)
[2018-11-03] MEDS ORDERED: ONDANSETRON 4 MG/2 ML (SDV) Z0FRAN IV PRN (20:00)
[2018-11-03] MEDS ORDERED: MELATONIN 3 MG TABLET PO PRN (20:00)
[2018-11-03] MEDS ORDERED: BENZONATATE 100 MG (TESSALON) CAPSULE PO PRN (20:00)
[2018-11-03] MEDS: RT-ALBUTEROL/IPRATROPIUM 3 ML (DUONEB) VIAL INH SCH (22:32)
[2018-11-04] VITALS (7 sets, daily range): BP systolic 118–145; BP diastolic 69–82
[2018-11-04] MEDS: RT-ALBUTEROL/IPRATROPIUM 3 ML (DUONEB) VIAL INH SCH ×6 (03:12→22:19)
[2018-11-04] MEDS: D5 1/2 NS W/KCL 20 MEQ/L 1,000 ML IV SCH (04:53)
[2018-11-04] MEDS: ENOXAPARIN 100 MG/1 ML (LOVENOX) SYR SC SCH ×2 (04:53→20:59)
[2018-11-04 05:27] LABS: BASOPHILS % (AUTO) 0 % (0-10); EOSINOPHILS % (AUTO) 0 % (0-10); HEMATOCRIT 27 % (40-54); HEMOGLOBIN 7.9 G/DL (13.3-17.7); LYMPHOCYTES # (AUTO) 1.2 X 10^3 (1.0-4.0); LYMPHOCYTES % (AUTO) 8 % (12-44); MEAN CORPUSCULAR HEMOGLOBIN 20 PG (25-34); MEAN CORPUSCULAR HGB CONC 29 G/DL (32-36); MEAN CORPUSCULAR VOLUME 68 FL (80-99); MEAN PLATELET VOLUME 8.8 FL (7.4-10.4); MONOCYTES # (AUTO) 0.4 X 10^3 (0.0-1.0); MONOCYTES % (AUTO) 3 % (0-12); NEUTROPHILS % (AUTO) 89 % (42-75); PLATELET COUNT 513 10^3/uL (130-400); RED CELL DISTRIBUTION WIDTH 21.3 % (10.0-14.5); WHITE BLOOD COUNT 14.6 10^3/uL (4.3-11.0)
[2018-11-04 05:51] LABS: ALANINE AMINOTRANSFERASE 32 U/L (0-55); ALBUMIN 2.8 GM/DL (3.2-4.5); ALKALINE PHOSPHATASE 283 U/L (40-136); BILIRUBIN,TOTAL 0.6 MG/DL (0.1-1.0); BUN/CREATININE RATIO 18; CALCIUM 8.6 MG/DL (8.5-10.1); CARBON DIOXIDE 18 MMOL/L (21-32); CHLORIDE 105 MMOL/L (98-107); CREATININE SERUM 0.77 MG/DL (0.60-1.30); GFR ESTIMATED > 60; GLUCOSE 164 MG/DL (70-105); MAGNESIUM 2.2 MG/DL (1.8-2.4); POTASSIUM 4.3 MMOL/L (3.6-5.0); SODIUM 134 MMOL/L (135-145); TOTAL PROTEIN 6.6 GM/DL (6.4-8.2)
[2018-11-04] MEDS: AZITHROMYCIN 250 MG TAB (ZITHROMAX) PO SCH (08:19)
[2018-11-04] MEDS ORDERED: PANT40TA3 PO (08:55)
[2018-11-04] MEDS ORDERED: TAMS0.4C98 PO (08:55)
--- NOTE | 2018-11-04 09:29 | History & Physical-Hospitalist ---
History of Present Illness HPI/Chief Complaint Pt is a 73yoCM with a PMH of hiatal hernia, tobaccoism, BPH who presented to the ER with a CC of SOB. He states over the last few days he had developed subjective fevers and then yesterday was acutely short of breath. He woke up and attempted to get out of bed but was too short of breath. This continued throughout the morning and he called his son to help him. He states it took over 20m to get to the car due to his SOB. He denies any previous episodes that were similar. He was found to have a pneumonia on CXR and found to be quite anemic so CT Chest and Abdomen were performed which revealed bilateral PEs and multiple liver masses. He received Lovenox for anticoagulation and then this morning he began to vomit up blood. He normally vomits due to his hiatal hernia but has never had hematemesis or melena before. He states his breathing is much better though. He had an EGD/Colonoscopy done a few months ago which per his daughter revealed 2 polyps and the hiatal hernia. Source: patient Exam Limitations: no limitations Date Seen 11/04/18 Time Seen by a Provider: 12:14 Attending Physician Kathya George MD PCP Megan Saleh MD Referring Physician Date of Admission Nov 03, 2018 at 3:30 pm Home Medications & Allergies Home Medications Reviewed patient Home Medication Reconciliation performed by pharmacy medication reconciliations licensed veterinary technician and/or nursing. Patients Allergies have been reviewed. Allergies Allergies Coded Allergies No Known Drug Allergies (Unverified06/12/16) Past Wmymrnf-Qxwvhm-Ccevnf Hx Past Med/Social Hx: Reviewed Nursing Past Med/Soc Hx Patient Social History Employed/Student: retired Alcohol Use: Past History (HEAVY USE WHEN YOUNGER, CLAIMS NONE IN 10 YEARS, PER PT ON 11/03/18) Recreational Drug Use: No Smoking Status: Former Smoker (2-3 PPD, BEGAN SMOKING AT AGE 5--QUIT 2017, PER PT ON 11/03/18) Type Used: Cigarettes 2nd Hand Smoke Exposure: Yes Recent Foreign Travel: No Contact w/other who traveled: No Recent Hopitalizations: No Recent Infectious Disease Expo: No Immunizations Up To Date Tetanus Booster (TDap): More than 5yrs Seasonal Allergies Seasonal Allergies: Yes Past Medical History Surgeries: Abdominal, Orthopedic Neurological: Concussion Genitourinary: Benign Prostatic Hyperpl Gastrointestinal: Abdominal Hernia Musculoskeletal: Fractures Hearing Impairment: Denies Psychosocial: Depression History of Blood Disorders: No Adverse Reaction to Blood Crawford: No Family History Reviewed Nursing Family Hx Patient reports no known family medical history. No Pertinent Family Hx Review of Systems Constitutional: fever EENTM: no symptoms reported Respiratory: dyspnea on exertion; No hemoptysis, No orthopnea; short of breath; No wheezing Cardiovascular: No chest pain, No edema, No palpitations Gastrointestinal: No abdominal pain; hematemesis; No melena; vomiting (chronic) Genitourinary: No dysuria, No hematuria Musculoskeletal: no symptoms reported Skin: no symptoms reported Psychiatric/Neurological: No Symptoms Reported Physical Exam Physical Exam Vital Signs Vital Signs - First Documented 11/03/18 11/03/18 14:23 19:46 Temp 99.0 Pulse 98 Resp 22 B/P (MAP) 131/96 (108) Pulse Ox 96 O2 Delivery Room Air FiO2 21 Capillary Refill : Less Than 3 Seconds Height, Weight, BMI Height: 5'7.00" Weight: 190lbs. 4.0oz. 86.049869lb; 30.1 BMI Method:Stated General Appearance: No Apparent Distress, WD/WN, Obese HEENT: PERRL/EOMI, Moist Mucous Membranes; No Scleral Icterus (L), No Scleral Icterus (R) Neck: Normal Inspection, Supple; No Thyromegaly Respiratory: Lungs Clear, No Accessory Muscle Use, No Respiratory Distress Cardiovascular: Regular Rate, Rhythm, No Murmur Gastrointestinal: Normal Bowel Sounds, Non Tender, Soft; No Guarding; Hepatomegaly; No Tenderness Neurologic/Psychiatric: Alert, Oriented x3, Normal Mood/Affect; No Aphasia, No Facial Droop Skin: Normal Color, Warm/Dry Results Results/Procedures Labs Laboratory Tests 11/03/18 14:40 11/04/18 04:48 Patient resulted labs reviewed. Imaging: Reviewed Imaging Films, Reviewed Imaging Report, Discussed Imaging with Radiologist Assessment/Plan Admission Diagnosis Bilateral PE Normocytic Anemia PNA Admission Status: Inpatient Order (span 2 midnights) Reason for Inpatient Admission: see admission diagnosis Assessment and Plan Assessment: PNA- CAP Anemia Liver masses Hematemesis Multiple PEs Plan: Abx for pna MAT protocol Pulm consulted Switched to Heparin gtt due to hematemesis Pulm, Surgery, Heme consulted- appreciate recs Discussed with Dr Cabrera (radiology) and will plan for biopsy on Wednesday at 1315 Will need heparin gtt DC-ed 4 hours before Advised patient to monitor vomit and stools for further bleeding DNR status Critical Care Critically Ill Patient Diagnosis/Problems Diagnosis/Problems (1) Bilateral pulmonary embolism Status: Acute (2) Liver mass Status: Acute (3) BPH (benign prostatic hyperplasia) Status: Chronic Qualifiers: Lower urinary tract symptom presence: unspecified whether lower urinary tract symptoms present Qualified Codes: N40.0 - Benign prostatic hyperplasia without lower urinary tract symptoms (4) Leukocytosis Status: Acute (5) Thrombocytosis Status: Acute (6) Normocytic anemia Status: Acute (7) Hyperglycemia Status: Acute (8) RLL pneumonia Status: Acute Qualifiers: Pneumonia type: due to unspecified organism Qualified Codes: J18.1 - Lobar pneumonia, unspecified organism Clinical Quality Measures DVT/VTE Risk/Contraindication: Risk Factor Score Per Nursin RFS Level Per Nursing on Admit: 4+=Very High Copy Copies To 1: MEGAN SALEH MD, KATELYN M MD Nov 04, 2018 9:29 am
--- NOTE | 2018-11-04 10:38 | Progress Note ---
CARLTON CULVER,MED STUDENT 11/04/18 1038: Subjective Date Seen by a Provider: Nov 04, 2018 Time Seen by a Provider: 09:02 Subjective/Events-last exam PT alert and in NAD, however experienced hematemesis this morning. Accompanied by daughter at bedside. Counseled daughter on CT findings, anticoagulant use and potential for liver biopsy. Review of Systems General: No Chills, No Night Sweats, No Fatigue, No Malaise Gastrointestinal: Abdominal Pain, Hematochezia Focused Exam Lactate Level 11/03/18 14:40: Lactic Acid Level 2.46*H 11/03/18 17:00: Lactic Acid Level 1.56 Respiratory: Other (Difficulty breathing during exertion, no difficulty supine ) Skin: pallor Objective Exam Last Set of Vital Signs Vital Signs Date Time Temp Pulse Resp B/P (MAP) Pulse Ox O2 Delivery O2 Flow Rate FiO2 11/04/18 07:51 97.6 89 22 145/72 (96) 97 Room Air 11/03/18 19:46 21 Capillary Refill : Less Than 3 Seconds I&O Intake and Output 11/04/18 00:00 Intake Total 570 ml Balance 570 ml Intake Oral 560 ml IV Total 10 ml # Voids 1 Daily Weight Change Yes, 24-33 lbs Yes, 24-33 lbs General: Alert, Oriented X3, Cooperative, No Acute Distress HEENT: Atraumatic, PERRLA Neck: Supple Lungs: Normal Air Movement Heart: Regular Rate Neuro: Normal Speech, Normal Tone, Sensation Intact Results Lab Laboratory Tests 11/03/18 14:40: White Blood Count 14.8H, Red Blood Count 4.02L, Hemoglobin 8.0L, Hematocrit 27L, Mean Corpuscular Volume 68L, Mean Corpuscular Hemoglobin 20L, Mean Corpuscular Hemoglobin Concent 29L, Red Cell Distribution Width 21.5H, Platelet Count 520H, Mean Platelet Volume 8.5, Neutrophils (%) (Auto) 77H, Lymphocytes (%) (Auto) 14, Monocytes (%) (Auto) 8, Eosinophils (%) (Auto) 1, Basophils (%) (Auto) 0, Neut rophils # (Auto) 11.3H, Lymphocytes # (Auto) 2.1, Monocytes # (Auto) 1.2H, Eosinophils # (Auto) 0.1, Basophils # (Auto) 0.0, Neutrophils % (Manual) 75, Lymphocytes % (Manual) 16, Monocytes % (Manual) 6, Eosinophils % (Manual) 0, Basophils % (Manual) 0, Band Neutrophils 3, Polychromasia SLIGHT, Hypochromasia MODERATE, Poikilocytosis SLIGHT, Anisocytosis MODERATE, Microcytosis MODERATE, Target Cells SLIGHT, Tear Drop Cells SLIGHT, Elliptocytes SLIGHT, Prothrombin Time 15.0H, INR Comment 1.1, Activated Partial Thromboplast Time 33, Sodium Level 136, Potassium Level 4.3, Chloride Level 105, Carbon Dioxide Level 19L, Anion Gap 12, Blood Urea Nitrogen 19H, Creatinine 0.88, Estimat Glomerular Filtration Rate > 60, BUN/Creatinine Ratio 22, Glucose Level 134H, Lactic Acid Level 2.46*H, Calcium Level 8.9, Corrected Calcium 9.8, Magnesium Level 1.7L, Total Bilirubin 1.0, Aspartate Amino Transf (AST/SGOT) 50H, Alanine Aminotransferase (ALT/SGPT) 35, Alkaline Phosphatase 282H, Total Creatine Kinase 149, Creatine Kinase MB 0.7, Myoglobin 41.9, Troponin I < 0.028, B-Type Natriure tic Peptide 36.2, Total Protein 6.6, Albumin 2.9L 11/03/18 17:00: Lactic Acid Level 1.56 11/04/18 04:48: White Blood Count 14.6H, Red Blood Count 4.00L, Hemoglobin 7.9L, Hematocrit 27L, Mean Corpuscular Volume 68L, Mean Corpuscular Hemoglobin 20L, Mean Corpuscular Hemoglobin Concent 29L, Red Cell Distribution Width 21.3H, Platelet Count 513H, Mean Platelet Volume 8.8, Neutrophils (%) (Auto) 89H, Lymphocytes (%) (Auto) 8L, Monocytes (%) (Auto) 3, Eosinophils (%) (Auto) 0, Basophils (%) (Auto) 0, Neutrophils # (Auto) 13.0H, Lymphocytes # (Auto) 1.2, Monocytes # (Auto) 0.4, Eosinophils # (Auto) 0.0, Basophils # (Auto) 0.0, Sodium Level 134L, Potassium Level 4.3, Chloride Level 105, Carbon Dioxide Level 18L, Anion Gap 11, Blood Urea Nitrogen 14, Creatinine 0.77, Estimat Glomerular Filtration Rate > 60, BUN/Creatinine Ratio 18, Glucose Level 164H, Calcium Level 8.6, Corrected Calcium 9.6, Magnesium Level 2.2, Total Bilirubin 0.6, Aspartate Amino Transf (AST/SGOT) 38H, Alanine Aminotransferase (ALT/SGPT) 32, Alkaline Phosphatase 283H, Total Protein 6.6, Albumin 2.8L Assessment/Plan Assessment/Plan Assess & Plan/Chief Complaint Shortness of breath pulmonary emboli Multiple liver masses Anemia. Administer protonix 40mg 2x day, continue clear liquid diet, monitor Hgb Consider liver biopsy d/t masses and endoscopy d/t hematemesis after discontinua tion of anticoagulation therapy for PE Clinical Quality Measures DVT/VTE Risk/Contraindication: Risk Factor Score Per Nursin RFS Level Per Nursing on Admit: 4+=Very High GENESIS KAMINSKI DO 11/04/18 1459: Subjective Subjective/Events-last exam breathing better today, no difficulty when laying in bed. daughter at bedside. informs of recent egd she report of hiatal hernia and colonoscopy with polyps. Objective Exam Abdomen: Soft, No Tenderness Skin: No Rashes, No Breakdown Psych/Mental Status: Mood NL Assessment/Plan Assessment/Plan Assess & Plan/Chief Complaint Liver biopsy by IR Anticoagulation for pe if hgb drops will need stopped and EGD to evaluate being switched from LOVENOX to Heparin Will follow Protonix BID Supervisory-Addendum Brief Verification & Attestation Time: Verification & Attestat.: 14:58 Participated in pt care: history, MDM, physical Personally performed: exam, history, MDM, supervision of care Care discussed with: Medical Student Procedures: n/a Results interpretation: Verified all documentation Verification and Attestation of Medical Student E/M Service A medical student performed and documented this service in my presence. I reviewed and verified all information documented by the medical student and made modifications to such information, when appropriate. I personally performed the physical exam and medical decision making. Genesis Kaminski, Nov 04, 2018,14:58 CARLTON CULVER,MED STUDENT Nov 04, 2018 10:38 GENESIS KAMINSKI DO Nov 04, 2018 14:59
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
[2018-11-04 12:43] LABS: INR 1.1 (0.8-1.4); PROTHROMBIN TIME PATIENT 14.9 SEC (12.2-14.7)
[2018-11-04] MEDS: 1/2 NS IV SOLUTION 1,000 ML IV SCH ×2 (13:24→20:59)
[2018-11-04] MEDS: cefTRIAXone 1,000 MG/SWFI 10 ML IV PUSH IV SCH ×2 (16:10)
[2018-11-04] MEDS ORDERED: HEParin 1000 UNIT/ML (10ML VIAL) FOR BOLUS IV SCH (16:30)
[2018-11-04] MEDS ORDERED: HEParin DRIP 25000 UNIT/500ML 500 ML IV SCH (16:30)
--- NOTE | 2018-11-04 16:57 | NUR ---
Patient started having chest pain that was squeezing in nature and a 6/10 and constant in nature. Heparin drip was stopped as it was started at 1630 after bolus was given. Patient showing sinus rhythm on telemetry. Vitals signs BP 149/70, P70, O2Sat 92. Dr. George notified and orders received.
--- NOTE | 2018-11-04 20:15 | Consultation-Cardiology ---
HPI-Cardiology Cardiology Consultation Date of Consultation 11/04/18 Date of Admission Time Seen by Provider: 20:08 Indication: Chest pain HPI 73 years old gentleman with history of hiatal hernia, had sudden onset shortness of breath with minimal exertion, no chest pain, no fever or chills. Came into the emergency room and diagnosed with bilateral pulmonary embolism and liver ma ss, he was started on Lovenox. During the hospital stay had an episode of hematemesis, reporting history of nausea and vomiting after he eats for over 10 years but no hematemesis in the past. Lovenox was stopped and he was started on heparin drip, after receiving the heparin drip he started having left-sided chest pain, severe. No palpitation. No syncope. Heparin was stopped and EKG was done did not show any acute abnormality, troponin first set was normal. Heparin drip was stopped and he is reporting improvement in his chest pain it took a couple hours before it to disappear. No similar episodes in the past. He denied any recent travel. No pedal edema, no calf pain. No syncope or near syncopal episodes. No claudications. Currently laying down comfortably in bed. Home Medications & Allergies Allergies: Coded Allergies: No Known Drug Allergies (Unverified , 06/12/16) Home Medication List Reviewed: Yes MPV-Odisic-Ueinpg Hx Patient Social History Marital Status: Employed/Student: retired Alcohol Use: Past History (HEAVY USE WHEN YOUNGER, CLAIMS NONE IN 10 YEARS, PER PT ON 11/03/18) Recreational Drug Use: No Smoking Status: Former Smoker (2-3 PPD, BEGAN SMOKING AT AGE 5--QUIT 2016, PER PT ON 11/03/18) Former smoker/When Quit: Jan 24, 2014 Type Used: Cigarettes 2nd Hand Smoke Exposure: Yes Recent Foreign Travel: No Recent Infectious Disease Expo: No Recent Hopitalizations: No Immunizations Up To Date Tetanus Booster (TDap): More than 5yrs Past Medical History Discussed below Family Medical History Significant Family History: No Pertinent Family Hx Family Medical Hx Noncontributory to his current condition Family History: Patient reports no known family medical history. Review of Systems-General Review of Systems Constitutional: see HPI; No chills, No diaphoresis, No dizziness, No fever; malaise, weakness; No weight gain, No weight loss, No other EENTM: no symptoms reported Respiratory: dyspnea on exertion; No hemoptysis, No orthopnea; short of breath; No wheezing Cardiovascular: chest pain; No edema, No palpitations Gastrointestinal: RUQ, LUQ, RLQ; No abdominal pain; hematemesis; No melena; nausea, vomiting (chronic) Genitourinary: see HPI; No dysuria, No hematuria Musculoskeletal: no symptoms reported, see HPI Skin: no symptoms reported, see HPI Psychiatric/Neurological: No Symptoms Reported, See HPI Reviewed Test Results Reviewed Test Results Lab Laboratory Tests Test 11/04/18 04:48 11/04/18 12:25 11/04/18 17:15 Range/Units White Blood Count 14.6 H 4.3-11.0 10^3/uL Red Blood Count 4.00 L 4.35-5.85 10^6/uL Hemoglobin 7.9 L 13.3-17.7 G/DL Hematocrit 27 L 40-54 % Mean Corpuscular Volume 68 L 80-99 FL Mean Corpuscular Hemoglobin 20 L 25-34 PG Mean Corpuscular Hemoglobin Concent 29 L 32-36 G/DL Red Cell Distribution Width 21.3 H 10.0-14.5 % Platelet Count 513 H 130-400 10^3/uL Mean Platelet Volume 8.8 7.4-10.4 FL Neutrophils (%) (Auto) 89 H 42-75 % Lymphocytes (%) (Auto) 8 L 12-44 % Monocytes (%) (Auto) 3 0-12 % Eosinophils (%) (Auto) 0 0-10 % Basophils (%) (Auto) 0 0-10 % Neutrophils # (Auto) 13.0 H 1.8-7.8 X 10^3 Lymphocytes # (Auto) 1.2 1.0-4.0 X 10^3 Monocytes # (Auto) 0.4 0.0-1.0 X 10^3 Eosinophils # (Auto) 0.0 0.0-0.3 10^3/uL Basophils # (Auto) 0.0 0.0-0.1 10^3/uL Sodium Level 134 L 135-145 MMOL/L Potassium Level 4.3 3.6-5.0 MMOL/L Chloride Level 105 98-107 MMOL/L Carbon Dioxide Level 18 L 21-32 MMOL/L Anion Gap 11 5-14 MMOL/L Blood Urea Nitrogen 14 7-18 MG/DL Creatinine 0.77 0.60-1.30 MG/DL Estimat Glomerular Filtration Rate > 60 BUN/Creatinine Ratio 18 Glucose Level 164 H 70-105 MG/DL Calcium Level 8.6 8.5-10.1 MG/DL Corrected Calcium 9.6 8.5-10.1 MG/DL Magnesium Level 2.2 1.8-2.4 MG/DL Total Bilirubin 0.6 0.1-1.0 MG/DL Aspartate Amino Transf (AST/SGOT) 38 H 5-34 U/L Alanine Aminotransferase (ALT/SGPT) 32 0-55 U/L Alkaline Phosphatase 283 H 40-136 U/L Total Protein 6.6 6.4-8.2 GM/DL Albumin 2.8 L 3.2-4.5 GM/DL Prothrombin Time 14.9 H 12.2-14.7 SEC INR Comment 1.1 0.8-1.4 Activated Partial Thromboplast Time 50 H 24-35 SEC Troponin I < 0.028 <0.028 NG/ML Physical Exam Physical Exam Vital Signs Vital Signs - First Documented 11/03/18 11/03/18 14:23 19:46 Temp 99.0 Pulse 98 Resp 22 B/P (MAP) 131/96 (108) Pulse Ox 96 O2 Delivery Room Air FiO2 21 Capillary Refill : Less Than 3 Seconds Height, Weight, BMI Height: 5'7.00" Weight: 190lbs. 4.0oz. 86.549080ok; 30.1 BMI Method:Stated General Appearance: No Apparent Distress, WD/WN, Obese Eyes: Bilateral Eye Normal Inspection, Bilateral Eye PERRL, Bilateral Eye EOMI HEENT: PERRL/EOMI, Moist Mucous Membranes; No Scleral Icterus (L), No Scleral Icterus (R) Neck: Normal Inspection, Supple; No Thyromegaly Respiratory: Other (Difficulty breathing during exertion, no difficulty supine ) Cardiovascular: Regular Rate, Rhythm, No Edema, No Gallop, No Murmur Gastrointestinal: Normal Bowel Sounds, Non Tender, Soft; No Guarding; Hepatomegaly; No Tenderness Back: Normal Inspection, No CVA Tenderness, No Vertebral Tenderness Extremity: Normal Capillary Refill, Normal Inspection, Normal Range of Motion, Non Tender, No Calf Tenderness, No Pedal Edema Neurologic/Psychiatric: Alert, Oriented x3, Normal Mood/Affect; No Aphasia, No Facial Droop Skin: Normal Color, Warm/Dry Lymphatic: No Adenopathy A/P-Cardiology Admission Diagnosis Pulmonary embolism Shortness of breath Liver mass Chest pain Assessment/Plan Bilateral pulmonary embolism, acute, shortness of breath. Started on Lovenox, intolerant to heparin drip. I resumed Lovenox after discussing the management plan with Dr. George. Recommend evaluating bilateral venous study, source of embolization is not identified. I will evaluate 2-D echo. Questionable pulmonary infiltrate. Managed by primary care team. Next Chest pain, nonspecific etiology, no acute EKG changes, cardiac enzymes are negative. Pain started after heparin drip, it could be reaction to heparin. Reporting relief of pain after stopping heparin, continue to monitor Hematemesis, has history of nausea and vomiting, currently feeling better, started on PPI. Monitor Anemia, monitor H&H closely. Hiatal hernia, history of recurrent nausea and vomiting BPH, maintained on Flomax Shortness of breath, secondary to pulmonary embolism Multiple liver masses, questionable primary versus metastases, workup per medical team Clinical Quality Measures DVT/VTE Risk/Contraindication: Risk Factor Score Per Nursin RFS Level Per Nursing on Admit: 4+=Very High SHERLEY ROTHMAN MD Nov 04, 2018 20:15
[2018-11-04] MEDS: PANTOPRAZOLE 40 MG (PROTONIX) TAB PO SCH (20:58)
[2018-11-05] MEDS: RT-ALBUTEROL/IPRATROPIUM 3 ML (DUONEB) VIAL INH SCH ×6 (02:37→22:31)
[2018-11-05 03:46] VITALS: BP 126/74
[2018-11-05 05:35] LABS: BASOPHILS % (AUTO) 0 % (0-10); EOSINOPHILS # (AUTO) 0.1 10^3/uL (0.0-0.3); EOSINOPHILS % (AUTO) 1 % (0-10); HEMATOCRIT 25 % (40-54); HEMOGLOBIN 7.2 G/DL (13.3-17.7); LYMPHOCYTES # (AUTO) 2.3 X 10^3 (1.0-4.0); LYMPHOCYTES % (AUTO) 16 % (12-44); MEAN CORPUSCULAR HEMOGLOBIN 20 PG (25-34); MEAN CORPUSCULAR HGB CONC 28 G/DL (32-36); MEAN CORPUSCULAR VOLUME 70 FL (80-99); MEAN PLATELET VOLUME 8.6 FL (7.4-10.4); MONOCYTES % (AUTO) 7 % (0-12); NEUTROPHILS # (AUTO) 11.6 X 10^3 (1.8-7.8); NEUTROPHILS % (AUTO) 77 % (42-75); PLATELET COUNT 572 10^3/uL (130-400); RED CELL DISTRIBUTION WIDTH 22.1 % (10.0-14.5); WHITE BLOOD COUNT 15.1 10^3/uL (4.3-11.0)
[2018-11-05 05:53] LABS: ALANINE AMINOTRANSFERASE 42 U/L (0-55); ALBUMIN 2.7 GM/DL (3.2-4.5); ALKALINE PHOSPHATASE 305 U/L (40-136); BILIRUBIN,TOTAL 0.6 MG/DL (0.1-1.0); BUN/CREATININE RATIO 14; CALCIUM 8.5 MG/DL (8.5-10.1); CARBON DIOXIDE 19 MMOL/L (21-32); CHLORIDE 106 MMOL/L (98-107); CREATININE SERUM 0.84 MG/DL (0.60-1.30); GFR ESTIMATED > 60; GLUCOSE 83 MG/DL (70-105); POTASSIUM 4.6 MMOL/L (3.6-5.0); SODIUM 137 MMOL/L (135-145); TOTAL PROTEIN 6.2 GM/DL (6.4-8.2)
[2018-11-05 08:00] VITALS: BP 148/79
[2018-11-05] MEDS: PANTOPRAZOLE 40 MG (PROTONIX) TAB PO SCH ×2 (08:22→20:09)
[2018-11-05] MEDS: AZITHROMYCIN 250 MG TAB (ZITHROMAX) PO SCH (08:22)
[2018-11-05] MEDS: ENOXAPARIN 100 MG/1 ML (LOVENOX) SYR SC SCH ×2 (08:22→20:11)
--- NOTE | 2018-11-05 08:46 | Pulmonary Progress Note ---
Subjective Time Seen by a Provider: 08:41 Subjective/Events-last exam No complications. All questions answered. Sepsis Event Evaluation Height, Weight, BMI Height: 5'7.00" Weight: 182lbs. 6.0oz. 82.908281cl; 30.1 BMI Method:Stated Focused Exam Lactate Level 11/03/18 14:40: Lactic Acid Level 2.46*H 11/03/18 17:00: Lactic Acid Level 1.56 Exam Exam Vital Signs Date Time Temp Pulse Resp B/P (MAP) Pulse Ox O2 Delivery O2 Flow Rate FiO2 11/05/18 07:11 91 Room Air 11/05/18 07:00 78 11/05/18 03:46 98.7 99 20 126/74 (91) 90 Room Air 11/05/18 02:38 90 Room Air 11/05/18 01:00 81 11/04/18 23:32 97.8 86 20 118/70 (86) 93 Room Air 11/04/18 22:21 90 Room Air 11/04/18 20:15 Room Air 11/04/18 20:00 98.2 83 18 142/82 (102) 93 Room Air 11/04/18 19:00 82 11/04/18 16:00 98.1 102 22 144/77 (99) 92 Room Air 11/04/18 15:39 91 Room Air 11/04/18 13:00 76 11/04/18 11:30 98.1 86 20 133/76 (95) 97 Room Air I & O 11/05/18 07:00 Intake Total 2474 ml Output Total 422 ml Balance 2052 ml Height & Weight Height: 5'7.00" Weight: 182lbs. 6.0oz. 82.085999bt; 30.1 BMI Method:Stated General Appearance: No Apparent Distress, WD/WN, Anxious HEENT: PERRL/EOMI, Pharynx Normal Neck: Full Range of Motion, Non Tender, Supple Respiratory: Chest Non Tender, Lungs Clear, Normal Breath Sounds, No Accessory Muscle Use, No Respiratory Distress Cardiovascular: Regular Rate, Rhythm Capillary Refill: Less Than 3 Seconds Gastrointestinal: normal bowel sounds, non tender, soft Extremity: Normal Capillary Refill, Normal Inspection, No Pedal Edema Neurologic/Psychiatric: Alert, Oriented x3 Skin: Normal Color, Warm/Dry Lymphatic: No Adenopathy Results Lab Laboratory Tests 11/03/18 14:40 11/04/18 04:48 11/05/18 04:59 Assessment/Plan Assessment/Plan Acute bilateral PE -Continue Lovenox -Will need to hold Wednesday at least 12 hrs prior to bx on Wednesday cp - Probably secondary to PE -CP now resolved Multiple liver masses -Plan is for CT Bx on Wednesday Hematemesis -Now resolved Anemia -Monitor GARETT CHÁVEZ DO Nov 05, 2018 08:46
--- NOTE | 2018-11-05 10:16 | Cardiology Progress Note ---
Subjective Date Seen by Provider: Nov 05, 2018 Time Seen by Provider: 10:15 Subjective/Events-last exam patient is laying down in bed, feeling better, denied any active chest pain. No palpitation. Review of Systems General: No Chills, No Night Sweats, No Fatigue, No Malaise, No Appetite, No Other HEENT: No Head Aches, No Visual Changes, No Eye Pain, No Ear Pain, No Dysphasia, No Sinus Congestion, No Post Nasal Drip, No Sore Throat, No Other Pulmonary: Dyspnea; No Cough, No Pleuritic Chest Pain, No Other Cardiovascular: No: Chest Pain, Palpitations, Orthopnea, Paroxysmal Noc. Dyspnea, Edema, Lt Headedness, Other Focused Exam Lactate Level 11/03/18 14:40: Lactic Acid Level 2.46*H 11/03/18 17:00: Lactic Acid Level 1.56 Objective-Cardiology Exam Last Set of Vital Signs Vital Signs 11/03/18 11/05/18 19:46 08:00 Temp 98.8 Pulse 94 Resp 20 B/P (MAP) 148/79 (102) Pulse Ox 93 O2 Delivery Room Air FiO2 21 Capillary Refill : Less Than 3 Seconds I&O Intake and Output 11/05/18 00:00 Intake Total 2604 ml Output Total 422 ml Balance 2182 ml Intake Oral 1604 ml IV Total 1000 ml Output Urine Total 421 ml Emesis 1 ml # Voids 8 General: Alert, Oriented X3, Cooperative, No Acute Distress HEENT: Atraumatic, PERRLA Neck: Supple Lungs: Normal Air Movement Heart: Regular Rate, Normal S1, Normal S2 Abdomen: Soft, No Tenderness Extremities: No Cyanosis Skin: No Rashes, No Breakdown Neuro: Normal Speech, Normal Tone, Sensation Intact Psych/Mental Status: Mood NL Results Lab Laboratory Tests 11/05/18 04:59 A/P-Cardiology Admission Diagnosis Pulmonary embolism Shortness of breath Liver mass Chest pain Assessment/Plan Bilateral pulmonary embolism, acute, shortness of breath. tolerating Lovenox well. Continue to monitor Intolerance to heparin with severe chest pain, improved after stopping heparin, cardiac enzymes and EKG did not show any acute abnormality. Continue to monitor Questionable pulmonary infiltrate. Managed by primary care team. Chest pain, nonspecific etiology, no acute EKG changes, cardiac enzymes are negative. Pain started after heparin drip, it could be reaction to heparin. Reporting relief of pain after stopping heparin, continue to monitor Hematemesis, has history of nausea and vomiting, currently feeling better, started on PPI. Monitor Anemia, monitor H&H closely. Hiatal hernia, history of recurrent nausea and vomiting BPH, maintained on Flomax Shortness of breath, secondary to pulmonary embolism Multiple liver masses, questionable primary versus metastases, workup per medical team Clinical Quality Measures DVT/VTE Risk/Contraindication: Risk Factor Score Per Nursin RFS Level Per Nursing on Admit: 4+=Very High SHERLEY ROTHMAN MD Nov 05, 2018 10:16
--- NOTE | 2018-11-05 10:30 | Progress Note - Surgery ---
CARLTON CULVER,MED STUDENT 11/05/18 1030: Subjective Date Seen by a Provider: Nov 05, 2018 Time Seen by a Provider: 09:36 Subjective/Events-last exam PT tolerating lovenox and reports no chest pain since discontinuing heparin. Reports no dyspnea at rest or when ambulating to commode. Denies hematemesis or abdominal pain. Accompanied by daughter and son-in-law. Review of Systems General: No Chills, No Night Sweats, No Fatigue; Appetite Pulmonary: Other Cardiovascular: No: Chest Pain Gastrointestinal: No: Nausea, Vomiting, Abdominal Pain, Hematochezia Focused Exam Lactate Level 11/03/18 14:40: Lactic Acid Level 2.46*H 11/03/18 17:00: Lactic Acid Level 1.56 Respiratory: Chest Non Tender, Normal Breath Sounds, No Accessory Muscle Use, No Respiratory Distress Cardiovascular: Regular Rate, Rhythm Skin: normal color Objective Exam Vital Signs Date Time Temp Pulse Resp B/P (MAP) Pulse Ox O2 Delivery O2 Flow Rate FiO2 11/05/18 08:00 98.8 94 20 148/79 (102) 93 Room Air 11/05/18 07:11 91 Room Air 11/05/18 07:00 78 11/05/18 03:46 98.7 99 20 126/74 (91) 90 Room Air 11/05/18 02:38 90 Room Air 11/05/18 01:00 81 11/04/18 23:32 97.8 86 20 118/70 (86) 93 Room Air 11/04/18 22:21 90 Room Air 11/04/18 20:15 Room Air 11/04/18 20:00 98.2 83 18 142/82 (102) 93 Room Air 11/04/18 19:00 82 11/04/18 16:00 98.1 102 22 144/77 (99) 92 Room Air 11/04/18 15:39 91 Room Air 11/04/18 13:00 76 11/04/18 11:30 98.1 86 20 133/76 (95) 97 Room Air I & O 11/05/18 07:00 Intake Total 2474 ml Output Total 422 ml Balance 2052 ml Capillary Refill : Less Than 3 Seconds General Appearance: No Apparent Distress, WD/WN HEENT: PERRL/EOMI, Pharynx Normal Neck: Normal Inspection, Non Tender, Supple Respiratory: Chest Non Tender, Lungs Clear, Normal Breath Sounds, No Accessory Muscle Use, No Respiratory Distress Cardiovascular: Regular Rate, Rhythm Gastrointestinal: normal bowel sounds, non tender, soft Extremity: Normal Capillary Refill, Normal Inspection, No Pedal Edema Neurologic/Psychiatric: Alert, Oriented x3 Skin: Normal Color, Warm/Dry Lymphatic: No Adenopathy Results Lab Laboratory Tests 11/04/18 12:25: Prothrombin Time 14.9H, INR Comment 1.1, Activated Partial Thromboplast Time 50H 11/04/18 17:15: Troponin I < 0.028 11/04/18 20:26: Activated Partial Thromboplast Time 34 11/05/18 04:59: Troponin I 0.028, White Blood Count 15.1H, Red Blood Count 3.65L, Hemoglobin 7.2L, Hematocrit 25L, Mean Corpuscular Volume 70L, Mean Corpuscular Hemoglobin 20L, Mean Corpuscular Hemoglobin Concent 28L, Red Cell Distribution Width 22.1H, Platelet Count 572H, Mean Platelet Volume 8.6, Neutrophils (%) (Auto) 77H, Lymph ocytes (%) (Auto) 16, Monocytes (%) (Auto) 7, Eosinophils (%) (Auto) 1, Basophils (%) (Auto) 0, Neutrophils # (Auto) 11.6H, Lymphocytes # (Auto) 2.3, Monocytes # (Auto) 1.0, Eosinophils # (Auto) 0.1, Basophils # (Auto) 0.0, Sodium Level 137, Potassium Level 4.6, Chloride Level 106, Carbon Dioxide Level 19L, Anion Gap 12, Blood Urea Nitrogen 12, Creatinine 0.84, Estimat Glomerular Filtration Rate > 60, BUN/Creatinine Ratio 14, Glucose Level 83, Calcium Level 8.5, Corrected Calcium 9.5, Total Bilirubin 0.6, Aspartate Amino Transf (AST/SGOT) 62H, Alanine Aminotransferase (ALT/SGPT) 42, Alkaline Phosphatase 305H, Total Protein 6.2L, Albumin 2.7L Microbiology 11/03/18 Blood Culture - Preliminary, Resulted Staph, Coag Neg (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 Hgb slight drop. No further hemate mesis. Denies fever sweats chills shortness of breath or chest pain. Assessment/Plan Assessment/Plan Assessment/Plan b/l pe liver masses hematemesis anemia secondary to gi bleed hiatal herni patient on clear liquids Protonix bid need biopsy liver planned by IR holding lovenox before, since holding will plan egd same day transfuse prbc if needed Supervisory-Addendum Brief Verification & Attestation Time: Verification & Attestat.: 11:03 Participated in pt care: history, MDM, physical Personally performed: exam, history, MDM, supervision of care Care discussed with: Medical Student Procedures: n/a Results interpretation: Verified all documentation Verification and Attestation of Medical Student E/M Service A medical student performed and documented this service in my presence. I revie wed and verified all information documented by the medical student and made modifications to such information, when appropriate. I personally performed the physical exam and medical decision making. Genesis Kaminski, Nov 05, 2018,11:03 CARLTON CULVER,MED STUDENT Nov 05, 2018 10:30 GENESIS KAMINSKI DO Nov 05, 2018 11:03
--- NOTE | 2018-11-05 10:38 | Progress Note - Hospitalist ---
Subjective HPI/CC On Admission Date Seen by Provider: Nov 05, 2018 Time Seen by Provider: 10:36 Pt is a 73yoCM with a PMH of hiatal hernia, tobaccoism, BPH who presented to the ER with a CC of SOB. He states over the last few days he had developed subjective fevers and then yesterday was acutely short of breath. He woke up and attempted to get out of bed but was too short of breath. This continued throughout the morning and he called his son to help him. He states it took over 20m to get to the car due to his SOB. He denies any previous episodes that were similar. He was found to have a pneumonia on CXR and found to be quite anemic so CT Chest and Abdomen were performed which revealed bilateral PEs and multiple liver masses. He received Lovenox for anticoagulation and then this morning he began to vomit up blood. He normally vomits due to his hiatal hernia but has never had hematemesis or melena before. He states his breathing is much better though. He had an EGD/Colonoscopy done a few months ago which per his daughter revealed 2 polyps and the hiatal hernia. Subjective/Events-last exam Pt developed chest pain yesterday afternoon when heparin gtt was started. Has now resolved. Cardiology consultation. Started back on Lovenox and has tolerated with no further hematemesis. Focused Exam Lactate Level 11/03/18 14:40: Lactic Acid Level 2.46*H 11/03/18 17:00: Lactic Acid Level 1.56 Objective Exam Vital Signs Vital Signs Date Time Temp Pulse Resp B/P (MAP) Pulse Ox O2 Delivery O2 Flow Rate FiO2 11/05/18 11:11 90 Room Air 11/05/18 08:00 98.8 94 20 148/79 (102) 11/03/18 19:46 21 Capillary Refill : Less Than 3 Seconds General Appearance: No Apparent Distress, WD/WN, Anxious Respiratory: Lungs Clear, Normal Breath Sounds, No Accessory Muscle Use, No Respiratory Distress Cardiovascular: Regular Rate, Rhythm, No Murmur Gastrointestinal: Normal Bowel Sounds, Non Tender, Soft, Hepatomegaly Extremity: No Pedal Edema Neurologic/Psychiatric: Alert, Oriented x3 Results/Procedures Lab Laboratory Tests 11/05/18 04:59 Patient resulted labs reviewed. Imaging: Reviewed Imaging Films, Reviewed Imaging Report, Discussed Imaging with Radiologist Assessment/Plan Assessment and Plan Assess & Plan/Chief Complaint Assessment: PNA- CAP Anemia Liver masses Hematemesis Multiple PEs Plan: Abx for pna MAT protocol Pulm consulted Continue lovenox- hold tomorrow in preparation for procedures on Wednesday (EGD and biopsy) Pulm, Surgery, Cardiology, Heme consulted- appreciate recs Discussed with Dr Cabrera (radiology) and will plan for biopsy on Wednesday at 1315 Advised patient to monitor vomit and stools for further bleeding DNR status NPO Critical Care Critically Ill Patient Diagnosis/Problems Diagnosis/Problems (1) Bilateral pulmonary embolism Status: Acute (2) Liver mass Status: Acute (3) BPH (benign prostatic hyperplasia) Status: Chronic Qualifiers: Lower urinary tract symptom presence: unspecified whether lower urinary tract symptoms present Qualified Codes: N40.0 - Benign prostatic hyperplasia without lower urinary tract symptoms (4) Leukocytosis Status: Acute (5) Thrombocytosis Status: Acute (6) Normocytic anemia Status: Acute (7) Hyperglycemia Status: Acute (8) RLL pneumonia Status: Acute Qualifiers: Pneumonia type: due to unspecified organism Qualified Codes: J18.1 - Lobar pneumonia, unspecified organism Clinical Quality Measures DVT/VTE Risk/Contraindication: Risk Factor Score Per Nursin RFS Level Per Nursing on Admit: 4+=Very High SIMIN LIGHT MD Nov 05, 2018 10:38 am
[2018-11-05 12:00] VITALS: BP 135/75
[2018-11-05 15:54] VITALS: BP 151/78
[2018-11-05] MEDS: cefTRIAXone 1,000 MG/SWFI 10 ML IV PUSH IV SCH ×2 (16:13)
[2018-11-05] MEDS: 1/2 NS IV SOLUTION 1,000 ML IV SCH ×2 (16:13→22:00)
[2018-11-05 19:37] VITALS: BP 142/79
[2018-11-05] MEDS: ACETAMINOPHEN 500 MG TAB (TYLENOL) PO PRN (20:10)
[2018-11-05] MEDS ORDERED: TAMSULOSIN 0.4 MG (FLOMAX) CAP PO ONE (21:00)
--- NOTE | 2018-11-05 21:30 | NUR ---
1999-PT CALLED RN INTO ROOM COMPLAINING OF CHEST PAIN RATING IT 2 OUT OF 10. PT STATES HE HAS HAD THE CONSTANT CHEST PAIN BUT HAS INCREASED IN INTENSITY. VITAL SIGNS TEMP-100.1, HR-106, BP-142/79 O2-93% R-20. 2009-PRN TYLENOL, MYLANTA, AND SUSAN PROTONIX GIVEN. 2039-SPOKE WITH DR. LIGHT AND INFORMED HER OF PTS CONDITION. ALSO INFORMED HER PT WAS WANTING FLOMAX RESTARTED BC PT HAVING ISSUES URINATING. TELEPHONE ORDERS RECEIVED TO DO AN EKG AND CALL CARDIOLOGY. ALSO RECEIVED ORDERS TO RESTART HOME DOSE OF FLOMAX 0.4MG PO DAILY. 2114-EKG PERFORMED AND PLACED AN CALL TO DR. ROTHMAN. INFORMED HIM OF PTS CONDITION AND ABOVE FINDINGS. NO NEW ORDERS AT THIS TIME.
[2018-11-05 23:26] VITALS: BP 133/74
[2018-11-06] VITALS (7 sets, daily range): BP systolic 108–138; BP diastolic 59–73
[2018-11-06] MEDS: RT-ALBUTEROL/IPRATROPIUM 3 ML (DUONEB) VIAL INH SCH ×5 (02:23→20:01)
[2018-11-06 05:53] LABS: BASOPHILS % (AUTO) 0 % (0-10); EOSINOPHILS # (AUTO) 0.1 10^3/uL (0.0-0.3); EOSINOPHILS % (AUTO) 1 % (0-10); HEMATOCRIT 26 % (40-54); HEMOGLOBIN 7.5 G/DL (13.3-17.7); LYMPHOCYTES % (AUTO) 15 % (12-44); MEAN CORPUSCULAR HEMOGLOBIN 20 PG (25-34); MEAN CORPUSCULAR HGB CONC 29 G/DL (32-36); MEAN CORPUSCULAR VOLUME 69 FL (80-99); MEAN PLATELET VOLUME 8.2 FL (7.4-10.4); MONOCYTES # (AUTO) 1.1 X 10^3 (0.0-1.0); MONOCYTES % (AUTO) 8 % (0-12); NEUTROPHILS # (AUTO) 10.4 X 10^3 (1.8-7.8); NEUTROPHILS % (AUTO) 76 % (42-75); PLATELET COUNT 529 10^3/uL (130-400); RED CELL DISTRIBUTION WIDTH 22.3 % (10.0-14.5); WHITE BLOOD COUNT 13.6 10^3/uL (4.3-11.0)
[2018-11-06 06:10] LABS: BUN/CREATININE RATIO 12; CALCIUM 8.5 MG/DL (8.5-10.1); CARBON DIOXIDE 19 MMOL/L (21-32); CHLORIDE 104 MMOL/L (98-107); CREATININE SERUM 0.85 MG/DL (0.60-1.30); GFR ESTIMATED > 60; GLUCOSE 88 MG/DL (70-105); POTASSIUM 4.1 MMOL/L (3.6-5.0); SODIUM 137 MMOL/L (135-145)
[2018-11-06] MEDS ORDERED: RT-ALBUTEROL/IPRATROPIUM 3 ML (DUONEB) VIAL INH PRN (07:15)
--- NOTE | 2018-11-06 07:28 | Pulmonary Progress Note ---
Subjective Time Seen by a Provider: 13:13 Subjective/Events-last exam NO complications noted. Sepsis Event Evaluation Height, Weight, BMI Height: 5'7.00" Weight: 186lbs. 5.0oz. 84.562130pq; 30.1 BMI Method:Stated Focused Exam Lactate Level 11/03/18 14:40: Lactic Acid Level 2.46*H 11/03/18 17:00: Lactic Acid Level 1.56 Exam Exam Vital Signs Date Time Temp Pulse Resp B/P (MAP) Pulse Ox O2 Delivery O2 Flow Rate FiO2 11/06/18 07:08 90 Room Air 11/06/18 07:08 96 90 11/06/18 07:00 88 11/06/18 03:46 98.7 93 20 113/67 (82) 90 Room Air 11/06/18 01:00 89 11/05/18 23:26 98.4 104 22 133/74 (93) 94 Room Air 11/05/18 22:32 89 Room Air 11/05/18 20:15 Room Air 11/05/18 19:37 100.1 106 20 142/79 (100) 93 Room Air 11/05/18 19:00 103 11/05/18 18:38 89 Room Air 11/05/18 15:54 98.4 95 18 151/78 (102) 92 Room Air 11/05/18 13:00 97 11/05/18 12:00 99.0 95 20 135/75 (95) 92 Room Air 11/05/18 11:11 90 Room Air 11/05/18 08:00 98.8 94 20 148/79 (102) 93 Room Air 11/05/18 08:00 Room Air I & O 11/06/18 07:00 Intake Total 1640 ml Balance 1640 ml Height & Weight Height: 5'7.00" Weight: 186lbs. 5.0oz. 84.189605ot; 30.1 BMI Method:Stated General Appearance: No Apparent Distress, WD/WN HEENT: PERRL/EOMI, Normal ENT Inspection, Pharynx Normal Neck: Full Range of Motion, Non Tender, Supple Respiratory: Chest Non Tender, No Accessory Muscle Use, No Respiratory Distress, Decreased Breath Sounds Cardiovascular: Regular Rate, Rhythm Capillary Refill: Less Than 3 Seconds Gastrointestinal: normal bowel sounds, non tender, soft Extremity: Normal Capillary Refill, Normal Inspection, No Pedal Edema Neurologic/Psychiatric: Alert, Oriented x3 Skin: Normal Color, Warm/Dry Lymphatic: No Adenopathy Results Lab Laboratory Tests 11/05/18 04:59 11/06/18 05:25 Assessment/Plan Assessment/Plan Acute bilateral PE -Continue Lovenox cp - Probably secondary to PE -CP now resolved Multiple liver masses -Plan is for CT Bx Wednesday AM Hematemesis -Now resolved Anemia -Monitor GARETT CHÁVEZ DO Nov 06, 2018 07:28
[2018-11-06] MEDS: PANTOPRAZOLE 40 MG (PROTONIX) TAB PO SCH ×2 (09:29→20:18)
[2018-11-06] MEDS: ENOXAPARIN 100 MG/1 ML (LOVENOX) SYR SC SCH (09:29)
[2018-11-06] MEDS: AZITHROMYCIN 250 MG TAB (ZITHROMAX) PO SCH (09:29)
[2018-11-06] MEDS: 1/2 NS IV SOLUTION 1,000 ML IV SCH ×2 (09:33→23:43)
--- NOTE | 2018-11-06 10:25 | Cardiology Progress Note ---
Subjective Date Seen by Provider: Nov 06, 2018 Time Seen by Provider: 10:23 Subjective/Events-last exam patient is laying down in bed, still having mild chest discomfort,mild dyspnea, no palpitations, syncope or near syncopal episodes Review of Systems General: No Chills, No Night Sweats, No Fatigue, No Malaise, No Appetite, No Other HEENT: No Head Aches, No Visual Changes, No Eye Pain, No Ear Pain, No Dysphasia, No Sinus Congestion, No Post Nasal Drip, No Sore Throat, No Other Pulmonary: Dyspnea; No Cough, No Pleuritic Chest Pain, No Other Cardiovascular: Chest Pain; No: Palpitations, Orthopnea, Paroxysmal Noc. Dyspn ea, Edema, Lt Headedness, Other Focused Exam Lactate Level 11/03/18 14:40: Lactic Acid Level 2.46*H 11/03/18 17:00: Lactic Acid Level 1.56 Objective-Cardiology Exam Last Set of Vital Signs Vital Signs 11/03/18 11/06/18 19:46 08:00 Temp 98.6 Pulse 96 Resp 20 B/P (MAP) 138/73 (94) Pulse Ox 92 O2 Delivery Room Air FiO2 21 Capillary Refill : Less Than 3 Seconds I&O Intake and Output 11/06/18 00:00 Intake Total 1790 ml Balance 1790 ml Intake Oral 1790 ml # Voids 8 # Bowel Movements 1 General: Alert, Oriented X3, Cooperative, No Acute Distress HEENT: Atraumatic, PERRLA Neck: Supple Lungs: Normal Air Movement Heart: Regular Rate, Normal S1, Normal S2 Abdomen: Soft, No Tenderness Extremities: No Cyanosis Skin: No Rashes, No Breakdown Neuro: Normal Speech, Normal Tone, Sensation Intact Psych/Mental Status: Mood NL Results Lab Laboratory Tests 11/06/18 05:25 A/P-Cardiology Admission Diagnosis Pulmonary embolism Shortness of breath Liver mass Chest pain Assessment/Plan Bilateral pulmonary embolism, acute, shortness of breath. tolerating Lovenox well. Continue to monitor Intolerance to heparin with severe chest pain, improved after stopping heparin, cardiac enzymes and EKG did not show any acute abnormality. Continue to monitor Questionable pulmonary infiltrate. Managed by primary care team. Chest pain, nonspecific etiology, no acute EKG changes, cardiac enzymes are ne gative. Pain started after heparin drip, it could be reaction to heparin, continue to monitor at this time Hematemesis, has history of nausea and vomiting, currently feeling better, started on PPI. Monitor Anemia, monitor H&H closely, tolerating Lovenox, H&H are stable at this point. Hiatal hernia, history of recurrent nausea and vomiting BPH, maintained on Flomax Shortness of breath, secondary to pulmonary embolism Multiple liver masses, questionable primary versus metastases, planning for liver biopsy tomorrow. Lovenox will be held this evening in preparation for the procedure Clinical Quality Measures DVT/VTE Risk/Contraindication: Risk Factor Score Per Nursin RFS Level Per Nursing on Admit: 4+=Very High SHERLEY ROTHMAN MD Nov 06, 2018 10:25
--- NOTE | 2018-11-06 11:37 | Progress Note - Hospitalist ---
Subjective HPI/CC On Admission Date Seen by Provider: Nov 06, 2018 Time Seen by Provider: 11:32 Pt is a 73yoCM with a PMH of hiatal hernia, tobaccoism, BPH who presented to the ER with a CC of SOB. He states over the last few days he had developed subjective fevers and then yesterday was acutely short of breath. He woke up and attempted to get out of bed but was too short of breath. This continued throughout the morning and he called his son to help him. He states it took over 20m to get to the car due to his SOB. He denies any previous episodes that were similar. He was found to have a pneumonia on CXR and found to be quite anemic so CT Chest and Abdomen were performed which revealed bilateral PEs and multiple liver masses. He received Lovenox for anticoagulation and then this morning he began to vomit up blood. He normally vomits due to his hiatal hernia but has never had hematemesis or melena before. He states his breathing is much better though. He had an EGD/Colonoscopy done a few months ago which per his daughter revealed 2 polyps and the hiatal hernia. Subjective/Events-last exam Pt's only concern is that he hasn't been able to eat. Reportedly had mild chest pain lat night. Rated it as a 2/10. Now resolved. No other complaints or concerns. Focused Exam Lactate Level 11/03/18 14:40: Lactic Acid Level 2.46*H 11/03/18 17:00: Lactic Acid Level 1.56 Objective Exam Vital Signs Vital Signs Date Time Temp Pulse Resp B/P (MAP) Pulse Ox O2 Delivery O2 Flow Rate FiO2 11/06/18 10:53 90 Room Air 11/06/18 08:00 98.6 96 20 138/73 (94) 11/03/18 19:46 21 Capillary Refill : Less Than 3 Seconds General Appearance: No Apparent Distress, WD/WN Respiratory: Lungs Clear, No Accessory Muscle Use, No Respiratory Distress Cardiovascular: Regular Rate, Rhythm, No Murmur Gastrointestinal: Normal Bowel Sounds, Non Tender, Soft, Hepatomegaly Extremity: No Calf Tenderness, No Pedal Edema Neurologic/Psychiatric: Alert, Oriented x3, Normal Mood/Affect Results/Procedures Lab Laboratory Tests 11/06/18 05:25 Patient resulted labs reviewed. Imaging: Discussed Imaging with Radiologist Assessment/Plan Assessment and Plan Assess & Plan/Chief Complaint Assessment: PNA- CAP Anemia- stable Liver masses Hematemesis- resolved Multiple PEs Plan: Abx for pna MAT protocol Hold Lovenox after this AM's dose for procedures tomorrow Pulm, Surgery, Cardiology, Heme consulted- appreciate recs Discussed with Dr Cabrera (radiology) and will plan for biopsy on Wednesday at 1315 Advised patient to monitor vomit and stools for further bleeding CLD and NPO after midnight for EGD DNR status Critical Care Critically Ill Patient Diagnosis/Problems Diagnosis/Problems (1) Bilateral pulmonary embolism Status: Acute (2) Liver mass Status: Acute (3) BPH (benign prostatic hyperplasia) Status: Chronic Qualifiers: Lower urinary tract symptom presence: unspecified whether lower urinary tract symptoms present Qualified Codes: N40.0 - Benign prostatic hyperplasia without lower urinary tract symptoms (4) Leukocytosis Status: Acute (5) Thrombocytosis Status: Acute (6) Normocytic anemia Status: Acute (7) Hyperglycemia Status: Acute (8) RLL pneumonia Status: Acute Qualifiers: Pneumonia type: due to unspecified organism Qualified Codes: J18.1 - Lobar pneumonia, unspecified organism Clinical Quality Measures DVT/VTE Risk/Contraindication: Risk Factor Score Per Nursin RFS Level Per Nursing on Admit: 4+=Very High SIMIN LIGHT MD Nov 06, 2018 11:37 am
--- NOTE | 2018-11-06 12:30 | NUR ---
HEART BFVV=[id number] PER ICU NURSE CALLING TEL. READING. PT. WAS UP TO BATHROOM. NO SYMPTOMS OF DIZZINESS OR PALPITATIONS. RETURNED TO BED.
--- NOTE | 2018-11-06 14:01 | Progress Note - Surgery ---
CARLTON CULVER,MED STUDENT 11/06/18 1401: Subjective Date Seen by a Provider: Nov 06, 2018 Time Seen by a Provider: 10:55 Subjective/Events-last exam PT admits continued stable rib pain /10. Experienced shortness of breath overnight that has improved with albuterol use. Has had one bowel movement. Denies nausea/vomiting, fever, chills, abdominal pain. Review of Systems General: No Chills, No Night Sweats Cardiovascular: Chest Pain (see HPI) Gastrointestinal: No: Nausea, Vomiting, Abdominal Pain Focused Exam Lactate Level 11/03/18 14:40: Lactic Acid Level 2.46*H 11/03/18 17:00: Lactic Acid Level 1.56 Objective Exam Vital Signs Date Time Temp Pulse Resp B/P (MAP) Pulse Ox O2 Delivery O2 Flow Rate FiO2 11/06/18 12:00 98.6 110 20 111/67 (82) 94 Room Air 11/06/18 10:53 90 Room Air 11/06/18 08:00 Room Air 11/06/18 08:00 98.6 96 20 138/73 (94) 92 Room Air 11/06/18 07:08 90 Room Air 11/06/18 07:08 96 90 11/06/18 07:00 88 11/06/18 03:46 98.7 93 20 113/67 (82) 90 Room Air 11/06/18 01:00 89 11/05/18 23:26 98.4 104 22 133/74 (93) 94 Room Air 11/05/18 22:32 89 Room Air 11/05/18 20:15 Room Air 11/05/18 19:37 100.1 106 20 142/79 (100) 93 Room Air 11/05/18 19:00 103 11/05/18 18:38 89 Room Air 11/05/18 15:54 98.4 95 18 151/78 (102) 92 Room Air I & O 11/06/18 07:00 Intake Total 1640 ml Balance 1640 ml Capillary Refill : Less Than 3 Seconds General Appearance: No Apparent Distress, WD/WN HEENT: PERRL/EOMI Neck: Normal Inspection, Non Tender Respiratory: No Accessory Muscle Use, No Respiratory Distress Cardiovascular: Regular Rate, Rhythm Gastrointestinal: non tender, soft Extremity: Normal Inspection Neurologic/Psychiatric: Alert, Oriented x3, Normal Mood/Affect Skin: Normal Color, Warm/Dry Results Lab Laboratory Tests 11/06/18 05:25: White Blood Count 13.6H, Red Blood Count 3.76L, Hemoglobin 7.5L, Hematocrit 26L, Mean Corpuscular Volume 69L, Mean Corpuscular Hemoglobin 20L, Mean Corpuscular Hemoglobin Concent 29L, Red Cell Distribution Width 22.3H, Platelet Count 529H, Mean Platelet Volume 8.2, Neutrophils (%) (Auto) 76H, Lymphocytes (%) (Auto) 15, Monocytes (%) (Auto) 8, Eosinophils (%) (Auto) 1, Basophils (%) (Auto) 0, Neutrophils # (Auto) 10.4H, Lymphocytes # (Auto) 2.0, Monocytes # (Auto) 1.1H, Eosinophils # (Auto) 0.1, Basophils # (Auto) 0.0, Sodium Level 137, Potassium Level 4.1, Chloride Level 104, Carbon Dioxide Level 19L, Anion Gap 14, Blood Urea Nitrogen 10, Creatinine 0.85, Estimat Glomerular Filtration Rate > 60, BUN/Creatinine Ratio 12, Glucose Level 88, Calcium Level 8.5 Microbiology 11/03/18 Blood Culture - Preliminary, Resulted Staph, Coag Neg (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 Hgb slightly up. Planning on Biopsy liver tomorrow and egd Assessment/Plan Assessment/Plan Assessment/Plan npo after midnight consent all questions answered from patient and family Supervisory-Addendum Brief Verification & Attestation Time: Verification & Attestat.: 14:56 Participated in pt care: history, MDM, physical Personally performed: exam, history, MDM, supervision of care Care discussed with: Medical Student Procedures: n/a Results interpretation: Verified all documentation Verification and Attestation of Medical Student E/M Service A medical student performed and documented this service in my presence. I reviewed and verified all information documented by the medical student and made modifications to such information, when appropriate. I personally performed the physical exam and medical decision making. Genesis Kaminski, Nov 06, 2018,14:58 CARLTON CULVER,MED STUDENT Nov 06, 2018 14:01 GENESIS KAMINSKI DO Nov 06, 2018 14:58
[2018-11-06] MEDS: cefTRIAXone 1,000 MG/SWFI 10 ML IV PUSH IV SCH ×2 (15:25)
[2018-11-06] MEDS: TAMSULOSIN 0.4 MG (FLOMAX) CAP PO SCH (17:30)
[2018-11-06] MEDS: ACETAMINOPHEN 500 MG TAB (TYLENOL) PO PRN (17:37)
[2018-11-07] VITALS (15 sets, daily range): BP systolic 113–145; BP diastolic 56–74
[2018-11-07 06:15] LABS: BASOPHILS % (AUTO) 0 % (0-10); EOSINOPHILS # (AUTO) 0.2 10^3/uL (0.0-0.3); EOSINOPHILS % (AUTO) 1 % (0-10); HEMATOCRIT 24 % (40-54); HEMOGLOBIN 7.1 G/DL (13.3-17.7); LYMPHOCYTES # (AUTO) 1.6 X 10^3 (1.0-4.0); LYMPHOCYTES % (AUTO) 12 % (12-44); MEAN CORPUSCULAR HEMOGLOBIN 20 PG (25-34); MEAN CORPUSCULAR HGB CONC 29 G/DL (32-36); MEAN CORPUSCULAR VOLUME 69 FL (80-99); MEAN PLATELET VOLUME 8.5 FL (7.4-10.4); MONOCYTES # (AUTO) 1.2 X 10^3 (0.0-1.0); MONOCYTES % (AUTO) 8 % (0-12); NEUTROPHILS # (AUTO) 10.9 X 10^3 (1.8-7.8); NEUTROPHILS % (AUTO) 78 % (42-75); PLATELET COUNT 517 10^3/uL (130-400); RED CELL DISTRIBUTION WIDTH 22.4 % (10.0-14.5); WHITE BLOOD COUNT 13.9 10^3/uL (4.3-11.0)
[2018-11-07 06:35] LABS: BUN/CREATININE RATIO 10; CALCIUM 8.4 MG/DL (8.5-10.1); CARBON DIOXIDE 20 MMOL/L (21-32); CHLORIDE 106 MMOL/L (98-107); CREATININE SERUM 0.88 MG/DL (0.60-1.30); GFR ESTIMATED > 60; GLUCOSE 85 MG/DL (70-105); MAGNESIUM 2.1 MG/DL (1.8-2.4); POTASSIUM 4.1 MMOL/L (3.6-5.0); SODIUM 136 MMOL/L (135-145)
[2018-11-07] MEDS: RT-ALBUTEROL/IPRATROPIUM 3 ML (DUONEB) VIAL INH SCH ×4 (07:23→20:14)
--- NOTE | 2018-11-07 07:45 | Progress Note - Surgery ---
CARLTON CULVER,MED STUDENT 11/07/18 0745: Subjective Date Seen by a Provider: Nov 07, 2018 Time Seen by a Provider: 07:35 Subjective/Events-last exam PT admits shortness of breath that improved with albuterol and nasal cannula. Chest pain is stable 2/10 since heparin reaction. Denies bowel movement, flatus. Denies nausea/vomiting/fever/chills/ abdominal pain. Feels some fatigue. Otherwise no new complaints. Review of Systems General: No Chills, No Night Sweats; Fatigue Pulmonary: No Dyspnea Cardiovascular: No: Chest Pain Gastrointestinal: No: Nausea, Vomiting, Abdominal Pain Objective Exam Vital Signs Date Time Temp Pulse Resp B/P (MAP) Pulse Ox O2 Delivery O2 Flow Rate FiO2 11/07/18 07:23 98 Nasal Cannula 11/07/18 07:00 81 11/07/18 03:53 98.2 78 20 122/71 (88) 97 Nasal Cannula 2.00 11/07/18 01:00 83 11/06/18 23:29 98.7 98 18 115/67 (83) 94 Nasal Cannula 2.00 11/06/18 20:02 90 Room Air 11/06/18 20:00 Room Air 11/06/18 19:43 98.9 96 22 108/59 (75) 91 Room Air 11/06/18 19:00 100 11/06/18 15:31 99.8 106 18 116/68 (84) 91 Room Air 11/06/18 14:52 90 Room Air 11/06/18 13:00 102 11/06/18 12:00 98.6 110 20 111/67 (82) 94 Room Air 11/06/18 10:53 90 Room Air 11/06/18 08:00 Room Air 11/06/18 08:00 98.6 96 20 138/73 (94) 92 Room Air I & O 11/07/18 07:00 Intake Total 4250 ml Output Total 800 ml Balance 3450 ml Capillary Refill : Less Than 3 Seconds General Appearance: No Apparent Distress, WD/WN HEENT: PERRL/EOMI Neck: Normal Inspection, Non Tender Respiratory: No Accessory Muscle Use, No Respiratory Distress Cardiovascular: Regular Rate, Rhythm Gastrointestinal: non tender, soft Extremity: Normal Inspection Neurologic/Psychiatric: Alert, Oriented x3, Normal Mood/Affect Skin: Normal Color, Warm/Dry Results Lab Laboratory Tests 11/07/18 05:20: White Blood Count 13.9H, Red Blood Count 3.49L, Hemoglobin 7.1L, Hematocrit 24L, Mean Corpuscular Volume 69L, Mean Corpuscular Hemoglobin 20L, Mean Corpuscular Hemoglobin Concent 29L, Red Cell Distribution Width 22.4H, Platelet Count 517H, Mean Platelet Volume 8.5, Neutrophils (%) (Auto) 78H, Lymphocytes (%) (Auto) 12, Monocytes (%) (Auto) 8, Eosinophils (%) (Auto) 1, Basophils (%) (Auto) 0, Neutrophils # (Auto) 10.9H, Lymphocytes # (Auto) 1.6, Monocytes # (Auto) 1.2H, E osinophils # (Auto) 0.2, Basophils # (Auto) 0.0, Sodium Level 136, Potassium Level 4.1, Chloride Level 106, Carbon Dioxide Level 20L, Anion Gap 10, Blood Urea Nitrogen 9, Creatinine 0.88, Estimat Glomerular Filtration Rate > 60, BUN/Creatinine Ratio 10, Glucose Level 85, Calcium Level 8.4L, Magnesium Level 2.1 Microbiology 11/03/18 Blood Culture - Preliminary, Resulted Staph, Coag Neg (VP GENETIC) Assessment/Plan Assessment/Plan Assessment/Plan b/l pe liver masses hematemesis anemia hiatal hernia hold lovenox egd Liver biopsy per IR Clinical Quality Measures DVT/VTE Risk/Contraindication: Risk Factor Score Per Nursin RFS Level Per Nursing on Admit: 4+=Very High GENESIS KAMINSKI DO 11/07/18 0829: Subjective Subjective/Events-last exam Having no hematemesis, Hgb 7.1 No new issues Planning EGD today. Assessment/Plan Assessment/Plan Assessment/Plan Lovenox on hold. Planning EGD and IR liver biopsy today. Transfuse prn Supervisory-Addendum Brief Verification & Attestation Time: Verification & Attestat.: 08:28 Participated in pt care: history, MDM, physical Personally performed: exam, history, MDM, supervision of care Care discussed with: Medical Student Procedures: n/a Results interpretation: Verified all documentation Verification and Attestation of Medical Student E/M Service A medical student performed and documented this service in my presence. I reviewed and verified all information documented by the medical student and made modifications to such information, when appropriate. I personally performed the physical exam and medical decision making. Genesis Kaminski, Nov 07, 2018,08:28 CARLTON CULVER,MED STUDENT Nov 07, 2018 07:45 GENESIS KAMINSKI DO Nov 07, 2018 08:29
[2018-11-07] MEDS ORDERED: LACTATED RINGERS 1,000 ML IV ONE (07:54)
--- NOTE | 2018-11-07 08:24 | NUR ---
TO SCOPE ROOM PER W/C.
[2018-11-07] MEDS ORDERED: proPOfol 200 MG/20 ML (DIPRIVAN) VIAL IV ONE (08:32)
[2018-11-07 08:35] LABS: INR 1.2 (0.8-1.4); PROTHROMBIN TIME PATIENT 15.8 SEC (12.2-14.7)
[2018-11-07] MEDS ORDERED: HURRICAINE EXT TUBE (BENZOCAINE) ONE (08:53)
[2018-11-07] MEDS ORDERED: LACTATED RINGERS 1,000 ML IV STA (08:56)
[2018-11-07] MEDS ORDERED: HURRICAINE EXT TUBE (BENZOCAINE) XX PRN (09:00)
--- NOTE | 2018-11-07 09:20 | NUR ---
RETURNED FROM SCOPE ROOM PER W/C. DAUGHTER AT BEDSIDE. V/S STABLE. DENIES DISCOMFORT. SKIN W/D. RESP. REGULAR. REMAINS NPO FOR CT GUIDED LIVER BX.
--- NOTE | 2018-11-07 09:41 | Cardiology Progress Note ---
Subjective Date Seen by Provider: Nov 07, 2018 Time Seen by Provider: 09:39 Subjective/Events-last exam patient is laying down in bed, still having mild retrosternal chest pain, left- sided chest pain. Had endoscopy done earlier Review of Systems General: No Chills, No Night Sweats, No Fatigue, No Malaise, No Appetite, No Other HEENT: No Head Aches, No Visual Changes, No Eye Pain, No Ear Pain, No Dysphasia, No Sinus Congestion, No Post Nasal Drip, No Sore Throat, No Other Pulmonary: Dyspnea; No Cough, No Pleuritic Chest Pain, No Other Cardiovascular: Chest Pain; No: Palpitations, Orthopnea, Paroxysmal Noc. Dyspnea, Edema, Lt Headedness, Other Objective-Cardiology Exam Last Set of Vital Signs Vital Signs 11/03/18 11/07/18 11/07/18 11/07/18 19:46 03:53 08:50 08:55 Temp 97.9 Pulse 85 Resp 20 B/P (MAP) 122/71 (88) Pulse Ox 99 O2 Delivery Room Air O2 Flow Rate 9 FiO2 21 Capillary Refill : Less Than 3 Seconds I&O Intake and Output 11/07/18 00:00 Intake Total 4450 ml Output Total 400 ml Balance 4050 ml Intake Oral 2340 ml IV Total 2110 ml Output Urine Total 400 ml # Voids 10 General: Alert, Oriented X3, Cooperative, No Acute Distress HEENT: Atraumatic, PERRLA Neck: Supple Lungs: Normal Air Movement Heart: Regular Rate, Normal S1, Normal S2 Abdomen: Soft, No Tenderness Extremities: No Cyanosis Skin: No Rashes, No Breakdown Neuro: Normal Speech, Normal Tone, Sensation Intact Psych/Mental Status: Mood NL Results Lab Laboratory Tests 11/07/18 05:20 A/P-Cardiology Admission Diagnosis Pulmonary embolism Shortness of breath Liver mass Chest pain Assessment/Plan Bilateral pulmonary embolism, acute, shortness of breath. tolerating Lovenox well. Continue to monitor Status post EGD, results pending. Patient is scheduled for CT-guided liver biopsy today Intolerance to heparin with severe chest pain, improved after stopping heparin, cardiac enzymes and EKG did not show any acute abnormality. Continue to monitor Questionable pulmonary infiltrate. Managed by primary care team. Chest pain, nonspecific etiology, no acute EKG changes, cardiac enzymes are negative. Pain started after heparin drip, continue to monitor at this time, had a long discussion with his daughter regarding the causes of chest pain and the possibility of having underlying coronary artery disease, I'm hesitant to proceed with a stress test or cardiac catheterization at this point due to the multiple comorbid condition in addition to the worsening anemia. Continue with Lovenox and monitor Hematemesis, has history of nausea and vomiting, currently feeling better, started on PPI. Monitor Anemia, monitor H&H closely, tolerating Lovenox, H&H are stable at this point. Hiatal hernia, history of recurrent nausea and vomiting BPH, maintained on Flomax Shortness of breath, secondary to pulmonary embolism Multiple liver masses, questionable primary versus metastases Clinical Quality Measures DVT/VTE Risk/Contraindication: Risk Factor Score Per Nursin RFS Level Per Nursing on Admit: 4+=Very High SHERLEY ROTHMAN MD Nov 07, 2018 09:41
--- NOTE | 2018-11-07 10:02 | Diagnostic Imaging Report ---
PROCEDURE: US Venous Lower Ext [place]. TECHNIQUE: Multiple Real-time grayscale images were obtained over the lower extremities in various projections bilaterally. Additional duplex Doppler and color Doppler images were also obtained. INDICATION: Bilateral pulmonary emboli. Evaluate for deep vein thrombosis. COMPARISON: None. FINDINGS: The left common femoral vein, femoral vein, deep femoral vein, and popliteal vein are normal in appearance. These vessels show normal compressibility, color flow, and Doppler augmentation. The visualized deep calf veins demonstrate no distinct intraluminal thrombus. Deep vein thrombosis is visualized in the right popliteal vein which demonstrates noncompressibility and absence of color Doppler flow. Deep vein thrombosis is also visualized in the right peroneal trunk and deep calf veins in the right lower extremity. The right common femoral vein, femoral vein, and deep femoral vein are normal in appearance. These vessels show normal compressibility, color flow, and Doppler augmentation. IMPRESSION: 1. Deep vein thrombosis is visualized in the right popliteal vein. Venous thrombosis also involves the veins of the right peroneal trunk and deep calf veins. 2. No evidence of deep vein thrombosis in the left lower extremity. The report was called to Maria T, patient's nurse [facility] by SONNY@ 10:02AM. Dictated by: Dictated on workstation # [id number]
[2018-11-07] MEDS: AZITHROMYCIN 250 MG TAB (ZITHROMAX) PO SCH (10:13)
[2018-11-07] MEDS: PANTOPRAZOLE 40 MG (PROTONIX) TAB PO SCH ×2 (10:13→19:34)
--- NOTE | 2018-11-07 10:33 | Progress Note-Post Operative ---
Post-Operative Progess Note Surgeon (s)/Photographic Laboratory Supervisor (s) Surgeon GENESIS ANDRADE DO Photographic Laboratory Supervisor: na Pre-Operative Diagnosis anemia/hematemesis Post-Operative Diagnosis antral ersion, hiatal hernia, healing ambar ulcers Procedure & Operative Findings Date of Procedure 11/07/18 Procedure Performed/Findings egd c biopsies Anesthesia Type per mda Estimated Blood Loss Estimated blood loss (mL): none Specimens/Packing Specimens Removed antrum, ge GENESIS ANDRADE DO Nov 07, 2018 10:33
[2018-11-07] MEDS ORDERED: NS IV 1000 ML 1,000 ML IV STA (11:40)
[2018-11-07] MEDS ORDERED: MIDAZOLAM 2 MG/2 ML (VERSED) VIAL IVP ONE (11:45)
[2018-11-07] MEDS ORDERED: LIDOCAINE 1% INJ 20 ML 20 ML VIAL INJ ONE (11:45)
[2018-11-07] MEDS ORDERED: fentaNYL INJECTION 100 MCG/2 ML AMP IVP ONE (11:45)
[2018-11-07 12:00] LABS: INR 1.2 (0.8-1.4); PROTHROMBIN TIME PATIENT 15.2 SEC (12.2-14.7)
--- NOTE | 2018-11-07 12:13 | Progress Note - Hospitalist ---
Subjective HPI/CC On Admission Date Seen by Provider: Nov 07, 2018 Time Seen by Provider: 09:10 Subjective/Events-last exam He reports chest pain which feels like pressure in the center of his chest. He denies any radiation of the pain. He denies any nausea, vomiting, or shortness of breath. She denies any abdominal pain. He reports that he is hungry. He has not been out of bed to walk. He underwent his EGD earlier and is doing well at this time. Objective Exam Vital Signs Vital Signs Date Time Temp Pulse Resp B/P (MAP) Pulse Ox O2 Delivery O2 Flow Rate FiO2 11/07/18 11:05 93 Room Air 11/07/18 08:55 85 20 11/07/18 08:50 97.9 9 11/07/18 08:00 116/71 (86) 11/03/18 19:46 21 Capillary Refill : Less Than 3 Seconds General Appearance: No Apparent Distress, WD/WN HEENT: PERRL/EOMI Respiratory: No Chest Non Tender; Lungs Clear, Normal Breath Sounds, No Respiratory Distress Cardiovascular: Regular Rate, Rhythm, No Murmur Gastrointestinal: Normal Bowel Sounds, Non Tender, Soft Extremity: Normal Inspection, No Pedal Edema Neurologic/Psychiatric: Alert, Oriented x3, Normal Mood/Affect Skin: Normal Color, Warm/Dry Results/Procedures Lab Laboratory Tests 11/07/18 05:20 Patient resulted labs reviewed. Imaging: Reviewed Imaging Report Assessment/Plan Assessment and Plan Assess & Plan/Chief Complaint Pneumonia Continue ceftriaxone and azithromycin Bilateral pulmonary embolism Lovenox held for biopsy today Multiple liver masses Scheduled for IR biopsy today Hematemesis, resolved Acute blood loss anemia Hemoglobin 7.1, no signs of ongoing blood loss EGD today revealed nonbleeding Tai ulcers Continue PPI Chest pain likely musculoskeletal Pain reproducible with palpation Workup not indicative of cardiac cause Critical Care Critically Ill Patient Diagnosis/Problems Diagnosis/Problems (1) Chest wall pain Status: Acute (2) Bilateral pulmonary embolism Status: Acute (3) RLL pneumonia Status: Acute Qualifiers: Pneumonia type: due to unspecified organism Qualified Codes: J18.1 - Lobar pneumonia, unspecified organism (4) Normocytic anemia Status: Acute (5) Liver mass Status: Acute Clinical Quality Measures DVT/VTE Risk/Contraindication: Risk Factor Score Per Nursin RFS Level Per Nursing on Admit: 4+=Very High INÉS MARTINEZ MD Nov 07, 2018 12:13
[2018-11-07] MEDS ORDERED: NS IV 1000 ML 1,000 ML IV ONE (12:44)
--- NOTE | 2018-11-07 13:00 | NUR ---
TO RADIOLOGY PER W/C FOR LIVER BX.
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
--- NOTE | 2018-11-07 14:00 | NUR ---
RETURNED FROM RADIOLOGY LIVER BX. PER CART. V/S= T=99.6 P=96 R=18 BD=768/61 O2 SAT=92 % ON R/A. HOB UP SLIGHTLY. RIGHT MIDDLE QUAD ABD. WITH DRESSING WITH GAUZE AND OP-SITE CLEAR. NO DRAINAGE NOTED. FAMILY MEMBERS AT BEDSIDE. DENIES PAIN AT THIS TIME. TAKING LIQUIDS WELL.
--- NOTE | 2018-11-07 14:10 | Pre-Op Note & Conscious Sedat ---
Pre-Operative Progress Note H&P Reviewed The H&P was reviewed, patient examined and no changes noted. Date H&P Reviewed: Nov 07, 2018 Time H&P Reviewed: 12:00 Pre-Op Diagnosis: Liver mass Conscious Sedation Pre-Proced Time 12:00 ASA Score 2 For ASA 3 and 4: Consider anesthesia and medical clearance. Also, for patients with a history of failed moderate sedation consider anesthesia. Airway Lungs Heart ASA score ASA 1: a normal healthy patient ASA 2: a patient with a mild systemic disease (mid diabetes, controlled hypertension, obesity ASA 3: a patient with a severe systemic disease that limits activity (angina, COPD, prior Myocardial infarction) ASA 4: a patient with an incapacitating disease that is a constant threat to life (CHF, renal failure) ASA 5: a moribund patient not expected to survive 24 hrs. (ruptured aneurysm) ASA 6: a declared brain- patient whose organs are being harvested. For emergent operations, add the letter E after the classification Mallampati Classification Grade 2 Sedation Plan Analgesia, Amnesia, Plan communicated to team members, Discussed options with patient/fam, Discussed risks with patient/fam The patient is an appropriate candidate to undergo the planned procedure, sedation, and anesthesia. The patient immediately re-assessed prior to indication. CONI OLGUIN MD Nov 07, 2018 14:10
[2018-11-07] MEDS ORDERED: HYDROcodone/APAP 5 MG/325 MG (LORTAB) TAB PO PRN (14:15)
--- NOTE | 2018-11-07 14:25 | Occ Therapy Progress Note ---
Therapy Progress Note NSG request therapy be held this date secondary to pt having biopsies complete this date. OT will attempt to see patient 11/08/18 BRUNO HERNANDEZ OT Nov 07, 2018 14:25
--- NOTE | 2018-11-07 14:47 | Pulmonary Progress Note ---
Subjective Time Seen by a Provider: 14:47 Subjective/Events-last exam No complications noted. Sepsis Event Evaluation Height, Weight, BMI Height: 5'7.00" Weight: 188lbs. 6.0oz. 85.403422pa; 30.1 BMI Method:Stated Exam Exam Vital Signs Date Time Temp Pulse Resp B/P (MAP) Pulse Ox O2 Delivery O2 Flow Rate FiO2 11/07/18 14:21 93 Room Air 11/07/18 13:55 92 14 130/56 99 Nasal Cannula 2.00 11/07/18 13:50 92 20 136/67 99 Nasal Cannula 2.00 11/07/18 13:45 93 17 136/67 97 Nasal Cannula 2.00 11/07/18 12:40 91 11/07/18 12:00 98.5 90 20 145/74 (97) 95 Room Air 11/07/18 11:05 93 Room Air 11/07/18 08:55 85 20 99 Room Air 11/07/18 08:50 97.9 89 20 95 OxyMask 9 11/07/18 08:00 97.9 95 20 116/71 (86) 95 Room Air 11/07/18 07:23 98 Nasal Cannula 11/07/18 07:00 81 11/07/18 03:53 98.2 78 20 122/71 (88) 97 Nasal Cannula 2.00 11/07/18 01:00 83 11/06/18 23:29 98.7 98 18 115/67 (83) 94 Nasal Cannula 2.00 11/06/18 20:02 90 Room Air 11/06/18 20:00 Room Air 11/06/18 19:43 98.9 96 22 108/59 (75) 91 Room Air 11/06/18 19:00 100 11/06/18 15:31 99.8 106 18 116/68 (84) 91 Room Air 11/06/18 14:52 90 Room Air I & O 11/07/18 07:00 Intake Total 4250 ml Output Total 800 ml Balance 3450 ml Height & Weight Height: 5'7.00" Weight: 188lbs. 6.0oz. 85.798381zg; 30.1 BMI Method:Stated General Appearance: No Apparent Distress, WD/WN HEENT: PERRL/EOMI, Normal ENT Inspection, Pharynx Normal Neck: Full Range of Motion, Non Tender, Supple Respiratory: Chest Non Tender, No Accessory Muscle Use, No Respiratory Distress, Decreased Breath Sounds Cardiovascular: Regular Rate, Rhythm Capillary Refill: Less Than 3 Seconds Gastrointestinal: normal bowel sounds, non tender, soft Extremity: Normal Capillary Refill, Normal Inspection, No Pedal Edema Neurologic/Psychiatric: Alert, Oriented x3 Skin: Normal Color, Warm/Dry Lymphatic: No Adenopathy Results Lab Laboratory Tests 11/06/18 05:25 11/07/18 05:20 Assessment/Plan Assessment/Plan Acute bilateral PE -Continue Lovenox cp - Probably secondary to PE -CP now resolved Multiple liver masses -Plan is for CT Bx today Hematemesis -Now resolved Anemia -Monitor GARETT CHÁVEZ DO Nov 07, 2018 14:47
--- NOTE | 2018-11-07 14:57 | Diagnostic Imaging Report ---
INDICATION: Liver masses. Patient presents for CT-guided biopsy. TECHNIQUE: The patient was brought to the CT suite and placed on the table in the supine position. Axial imaging through the abdomen was performed to evaluate for an appropriate entry site. The procedure was performed utilizing conscious sedation with Radiology nursing and constant patient monitoring. The patient was administered a total of 50 micrograms of fentanyl intravenously and 1 mg of Versed intravenously. The total procedure time was 4 minutes. FINDINGS: The right abdomen was prepped and draped in the usual sterile fashion. A small amount of 1% lidocaine was utilized for local anesthesia. An 18-gauge coaxial Temno needle was advanced and placed with its tip along the margin of the dominant mass in the inferior right lobe of the liver. Four core biopsies were obtained. A small blood patch was injected during needle removal. Hemostasis was obtained using manual compression. Followup imaging is without complicating feature. IMPRESSION: CT-guided core biopsy of the dominant low-density mass in the inferior right lobe of the liver utilizing conscious sedation. The Pathology results are currently pending. Dictated by: Dictated on workstation # [id number]
[2018-11-07] MEDS: TAMSULOSIN 0.4 MG (FLOMAX) CAP PO SCH (18:16)
[2018-11-07] MEDS: cefTRIAXone 1,000 MG/SWFI 10 ML IV PUSH IV SCH ×2 (18:17)
[2018-11-07] MEDS: ACETAMINOPHEN 500 MG TAB (TYLENOL) PO PRN (19:39)
[2018-11-07] MEDS: 1/2 NS IV SOLUTION 1,000 ML IV SCH (19:49)
[2018-11-08] VITALS: BP 121/68
[2018-11-08 04:00] VITALS: BP 144/77
[2018-11-08] MEDS: RT-ALBUTEROL/IPRATROPIUM 3 ML (DUONEB) VIAL INH SCH ×3 (06:58→15:06)
[2018-11-08 07:56] LABS: BASOPHILS % (AUTO) 0 % (0-10); EOSINOPHILS # (AUTO) 0.3 10^3/uL (0.0-0.3); EOSINOPHILS % (AUTO) 2 % (0-10); HEMATOCRIT 27 % (40-54); HEMOGLOBIN 7.7 G/DL (13.3-17.7); LYMPHOCYTES # (AUTO) 2.2 X 10^3 (1.0-4.0); LYMPHOCYTES % (AUTO) 14 % (12-44); MEAN CORPUSCULAR HEMOGLOBIN 20 PG (25-34); MEAN CORPUSCULAR HGB CONC 29 G/DL (32-36); MEAN CORPUSCULAR VOLUME 70 FL (80-99); MEAN PLATELET VOLUME 8.4 FL (7.4-10.4); MONOCYTES # (AUTO) 1.1 X 10^3 (0.0-1.0); MONOCYTES % (AUTO) 7 % (0-12); NEUTROPHILS # (AUTO) 12.5 X 10^3 (1.8-7.8); NEUTROPHILS % (AUTO) 78 % (42-75); PLATELET COUNT 412 10^3/uL (130-400); RED CELL DISTRIBUTION WIDTH 22.4 % (10.0-14.5); WHITE BLOOD COUNT 16.1 10^3/uL (4.3-11.0)
--- NOTE | 2018-11-08 07:57 | Pulmonary Progress Note ---
Subjective Time Seen by a Provider: 07:58 Subjective/Events-last exam No complications noted. Pt is on RA and has Sepsis Event Evaluation Height, Weight, BMI Height: 5'7.00" Weight: 187lbs. 2.0oz. 84.640002in; 30.1 BMI Method:Stated Exam Exam Vital Signs Date Time Temp Pulse Resp B/P (MAP) Pulse Ox O2 Delivery O2 Flow Rate FiO2 11/08/18 07:00 109 11/08/18 06:56 98 Room Air 11/08/18 04:00 97.5 96 19 144/77 (99) 95 Nasal Cannula 2.00 11/08/18 01:00 80 11/08/18 00:00 97.4 90 18 121/68 (85) 93 Room Air 11/07/18 20:14 92 Room Air 11/07/18 20:00 100.6 103 20 124/65 (84) 94 Room Air 11/07/18 19:39 100.8 11/07/18 19:30 Room Air 11/07/18 19:00 108 11/07/18 18:15 102 18 144/68 (93) 92 Room Air 11/07/18 16:15 98.5 101 141/63 (89) 92 Room Air 11/07/18 15:15 98.4 111 18 131/61 (84) 93 Room Air 11/07/18 14:45 98.6 106 130/60 (83) 93 Room Air 11/07/18 14:21 93 Room Air 11/07/18 14:15 99.0 109 117/59 (78) 93 Room Air 11/07/18 14:05 99.6 96 18 134/61 (85) 92 Room Air 11/07/18 13:55 92 14 130/56 99 Nasal Cannula 2.00 11/07/18 13:50 92 20 136/67 99 Nasal Cannula 2.00 11/07/18 13:45 93 17 136/67 97 Nasal Cannula 2.00 11/07/18 12:40 91 11/07/18 12:00 98.5 90 20 145/74 (97) 95 Room Air 11/07/18 11:05 93 Room Air 11/07/18 08:55 85 20 99 Room Air 11/07/18 08:50 97.9 89 20 95 OxyMask 9 11/07/18 08:00 Room Air 11/07/18 08:00 97.9 95 20 116/71 (86) 95 Room Air I & O 11/08/18 07:00 Intake Total 1190 ml Output Total 1000 ml Balance 190 ml Height & Weight Height: 5'7.00" Weight: 187lbs. 2.0oz. 84.936169op; 30.1 BMI Method:Stated General Appearance: No Apparent Distress, WD/WN HEENT: PERRL/EOMI, Normal ENT Inspection, Pharynx Normal Neck: Full Range of Motion, Non Tender, Supple Respiratory: Chest Non Tender, No Accessory Muscle Use, No Respiratory Distress, Decreased Breath Sounds Cardiovascular: Regular Rate, Rhythm Capillary Refill: Less Than 3 Seconds Gastrointestinal: normal bowel sounds, non tender, soft Extremity: Normal Capillary Refill, Normal Inspection, No Pedal Edema Neurologic/Psychiatric: Alert, Oriented x3 Skin: Normal Color, Warm/Dry Lymphatic: No Adenopathy Results Lab Laboratory Tests 11/07/18 05:20 Assessment/Plan Assessment/Plan Acute bilateral PE -Currently on Lovenox -Can switch to PO anticoagulation today from my standpoint -Recommend life long anticoagulation secondary to cancer unless contraindication arises. cp - Probably secondary to PE -CP now resolved Multiple liver masses s/p bx Hematemesis -Now resolved Anemia -Monitor GARETT CHÁVEZ DO Nov 08, 2018 07:57
[2018-11-08 08:00] VITALS: BP 120/66
[2018-11-08 08:10] LABS: BUN/CREATININE RATIO 13; CALCIUM 8.3 MG/DL (8.5-10.1); CARBON DIOXIDE 20 MMOL/L (21-32); CHLORIDE 105 MMOL/L (98-107); CREATININE SERUM 0.88 MG/DL (0.60-1.30); GFR ESTIMATED > 60; GLUCOSE 140 MG/DL (70-105); POTASSIUM 3.7 MMOL/L (3.6-5.0); SODIUM 134 MMOL/L (135-145)
--- NOTE | 2018-11-08 08:15 | Cardiology Progress Note ---
Subjective Date Seen by Provider: Nov 08, 2018 Time Seen by Provider: 08:14 Subjective/Events-last exam Patient is sitting up in bed, denies any chest pain. C/o mild dyspnea. Objective-Cardiology Exam Last Set of Vital Signs Vital Signs 11/03/18 11/08/18 11/08/18 11/08/18 19:46 04:00 06:56 07:00 Temp 97.5 Pulse 109 Resp 19 B/P (MAP) 144/77 (99) Pulse Ox 98 O2 Delivery Room Air O2 Flow Rate 2.00 FiO2 21 Capillary Refill : Less Than 3 Seconds I&O Intake and Output 11/08/18 00:00 Intake Total 890 ml Output Total 1400 ml Balance -510 ml Intake Oral 740 ml IV Total 150 ml Output Urine Total 1400 ml # Bowel Movements 1 General: Alert, Oriented X3, Cooperative, No Acute Distress HEENT: Atraumatic, PERRLA Neck: Supple Lungs: Normal Air Movement Heart: Regular Rate, Normal S1, Normal S2 Abdomen: Soft, No Tenderness Extremities: No Cyanosis Skin: No Rashes, No Breakdown Neuro: Normal Speech, Normal Tone, Sensation Intact Psych/Mental Status: Mood NL Results Lab Laboratory Tests 11/08/18 07:49 A/P-Cardiology Admission Diagnosis Pulmonary embolism Shortness of breath Liver mass Chest pain Assessment/Plan Bilateral pulmonary embolism, acute, shortness of breath. tolerating Lovenox well. Continue to monitor Status post EGD, revealing healing ulcers, hiatal hernia. Intolerance to heparin with severe chest pain, improved after stopping heparin, cardiac enzymes and EKG did not show any acute abnormality. Continue to monitor Questionable pulmonary infiltrate. Managed by primary care team. Chest pain, nonspecific etiology, no acute EKG changes, cardiac enzymes are negative. Pain started after heparin drip, continue to monitor at this time, had a long discussion with his daughter regarding the causes of chest pain and the possibility of having underlying coronary artery disease, Hesitant to proceed with a stress test or cardiac catheterization at this point due to the multiple comorbid condition in addition to the anemia. Continue with Lovenox and monitor Hematemesis, has history of nausea and vomiting, currently feeling better, started on PPI. Monitor Anemia, monitor H&H closely, tolerating Lovenox, H&H are stable at this point. Hiatal hernia, history of recurrent nausea and vomiting BPH, maintained on Flomax Shortness of breath, secondary to pulmonary embolism Multiple liver masses, questionable primary versus metastases, s/p liver biopsy, results pending. Clinical Quality Measures DVT/VTE Risk/Contraindication: Risk Factor Score Per Nursin RFS Level Per Nursing on Admit: 4+=Very High VIJI RAMSEY Nov 08, 2018 08:15
[2018-11-08] MEDS: ENOXAPARIN 100 MG/1 ML (LOVENOX) SYR SC SCH ×2 (08:23→20:56)
[2018-11-08] MEDS: PANTOPRAZOLE 40 MG (PROTONIX) TAB PO SCH ×2 (08:24→20:55)
[2018-11-08] MEDS: 1/2 NS IV SOLUTION 1,000 ML IV SCH (09:24)
--- NOTE | 2018-11-08 09:31 | Physical Therapy Daily Note ---
PT Daily Note-Current Subjective Patient agrees to PT. Mental Status Patient Orientation: Normal For Age Attachments: IV Transfers Therapy Code Descriptions/Definitions Functional [place] Measure: 0=Not Assessed/NA 4=Minimal Assistance 1=Total Assistance 5=Supervision or Setup 2=Maximal Assistance 6=Modified [place] 3=Moderate Assistance 7=Complete [place] Therapy Quality Codes: 6 Independent with activity with or without an assistive device 5 Patient requires set up or clean up by helper. Patient completes activity by themselves 4 Supervision or touching assist (CGA). [place] provide cues , steadying assist 3 The helper provides less than half the effort to complete the activity 2 The helper provides more than half the effort to complete the activity 1 Dependent. The helper does all the effort to complete an activity 7 Patient refused to complete or attempt activity 9 The patient did not perform the activity before the current illness or injury 88 Not attempted due to Medical conditions or safety concerns Transfers (B, C, W/C) (FIM): 7 Scootin Rollin Supine to/from Sit: 7 Sit to/from Stand: 7 Weight Bearing Right Lower Extremity: Right Full Weight Bearing Left Lower Extremity: Left Full Weight Bearing Gait Training Gait (FIM): 7 Distance (FIM): 3=150 ft Distance: 225' Gait Level of Assist: 7 Gait Assistive Device: None steady, functional independent gait sequence Assessment Patient remained seated EOB after treatment and is highly motivated with progress. PT to dismiss patient from services secondary to patient is currently independent with all gross motor skills and is up ad geovanny in room and encouraged to ambulate PRN in hallway with or without family. PT Short Term Goals Short Term Goals Time Frame: Nov 08, 2018 Transfers (B,C,W/C) (FIM): 7 Gait (FIM): 7 Distance (FIM): 3=150 ft Gait Level of Assist: 7 Gait Assistive Device: None PT Plan Treatment/Plan Treatment Plan: Discontinue PT, goals met Treatment Plan: Education, Functional Activity Shivam, Functional Strength, Gai t, Safety, Therapeutic Exercise Treatment Duration: Nov 08, 2018 Frequency: 2 times per week Estimated Hrs Per Day: .25 hour per day Patient and/or Family Agrees t: Yes Time/GCodes Time In: 842 Time Out: 851 Total Billed Treatment Time: 9 Total Billed Treatment 1 visit FA 9 min RONNI FIELDS PT Nov 08, 2018 09:31
--- NOTE | 2018-11-08 10:18 | Discharge Inst-Simple/Standard ---
Discharge Inst-Standard Discharge Medications New, Converted or Re-Newed RX: Transmitted to Pharmacy Patient Instructions/Follow Up Plan of Care/Instructions/FU: Take medications as directed. Follow up with PCP in one week. Your PCP will discuss your biopsy results with you. Follow up with general surgery. Activity as Tolerated: Yes Discharge Diet: No Restrictions Return to The Hospital For: chest pain, dyspnea, fever, or if you feel like you are getting worse. Planned Outpatient Orders/Ref. Pneu Vac Indicated: Yes INÉS MARTINEZ MD Nov 08, 2018 10:17
[2018-11-08] MEDS ORDERED: RIVA20TA PO (10:32)
[2018-11-08] MEDS ORDERED: CEFD300C3 PO (10:32)
[2018-11-08] MEDS ORDERED: PANT40TA3 PO (10:32)
[2018-11-08] MEDS ORDERED: RIVA15TA PO (10:32)
--- NOTE | 2018-11-08 11:30 | NUR ---
REPORT RECEIVED FROM DAVID OVALLE. ASSUMED CARE OF PATIENT AT THIS TIME.
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
[2018-11-08 12:00] VITALS: BP 148/76
--- NOTE | 2018-11-08 13:25 | OPERATIVE REPORT ---
DATE OF SERVICE: 11/07/2018 PREOPERATIVE DIAGNOSES: Anemia, hematemesis. POSTOPERATIVE DIAGNOSES: Antral erosion, hiatal hernia, healing Tai ulcers. PROCEDURE: EGD with biopsies. SURGEON: Genesis Kaminski DO ANESTHESIA: Per MDA. ESTIMATED BLOOD LOSS: None. COMPLICATIONS: None. INDICATIONS: The patient is a 73-year-old male who presented to the Emergency Department and was found to be anemic. He was admitted. The patient had hematemesis as well. The patient was with bilateral pulmonary embolisms and has been on anticoagulation, which is on hold for procedure and for interventional radiology biopsy of the liver. Now it is best timing for EGD. The patient understands risks and benefits of procedure and wished to proceed with procedure. Consent was signed and on the chart. PROCEDURE IN DETAIL: The patient was taken to the endoscopy suite, placed in left lateral recumbent position. Timeout was performed. Scope was inserted in mouth, down the esophagus, stomach and into the duodenum without difficulty. There were no polyps, mass or ulcerations within the duodenum. Scope was slowly retracted back to the stomach where it was further insufflated. Small erosion of the antrum, which biopsy was obtained. Scope was retroflexed noting a hiatal hernia, no other pathology noted. Scope was returned to its normal position, slowly withdrawn to the distal esophagus visualizing the GE junction, which has appearance of some healing Tai ulcers. Biopsy of the GE junction was obtained. Scope was then slowly retracted back to completely remove noting no other pathology. The patient tolerated the procedure well without any complications, taken to recovery room in stable condition. RECOMMENDATIONS: The patient will continue on current medications. Await biopsy results. The patient to IR today for liver biopsy. Would transfuse p.r.n. Continue on Protonix. Job ID: [id number] DocumentID: [id number] Dictated Date: 11/07/2018 10:35:57 Chronic Specialist Date: 11/07/2018 21:02:31 Dictated By: GENESIS KAMINSKI DO
--- NOTE | 2018-11-08 13:35 | NUR ---
PER PATIENT DAUGHTER, REPORTS THERE FAMILY HAVE TALKED PATIENT INTO WEARING HOME O2 AT HOME IF NEEDED, RT NOTIFIED FOR HOME 02 QUALIFICATION.
--- NOTE | 2018-11-08 15:03 | NUR ---
SP02 88% AT HOME AIR AT REST. PT PLACED ON 2L NC. SP02 INCREASED TO 95%. Addendum: 11/08/18 at 1522 by TRACEY LOREDO RT Amended: Links added.
--- NOTE | 2018-11-08 15:08 | NUR ---
RESPIRATORY THERAPY IN PT ROOM DOING HOME OXYGEN TEST, REPORTED TO THIS NURSE PATIENT WAS HAVING CHEST PAIN. EKG OBTAINED 1510 VS OBTAINED BP 145/75 103 HR 97% ON 2LNC 99.5 TEMP. PT REPORTS PAIN WAS 8/10 WHEN THE CHEST PAIN STARTED BUT WAS A 2/[address] MARTINEZ AT BEDSIDE AND REVIEWED EKG. GAVE ORDERS TO DISCONTINUE DISCHARGE UNTIL TOMORROW AM AND TO GIVE ORDERED NORCO AT THIS TIME. WILL MONITOR PATIENT ON TELE OVERNIGHT AND OBTAIN LABS. PT DAUGHTER AT BEDSIDE.
[2018-11-08] MEDS: cefTRIAXone 1,000 MG/SWFI 10 ML IV PUSH IV SCH ×2 (15:26)
[2018-11-08 15:47] VITALS: BP 128/73
--- NOTE | 2018-11-08 16:27 | Cardiology Progress Note ---
Subjective Date Seen by Provider: Nov 08, 2018 Time Seen by Provider: 16:25 Subjective/Events-last exam Patient is laying down in bed. Had an episode of chest pain left-sided earlier, it appear to be reducible at the left lower sternal border Review of Systems General: No Chills, No Night Sweats, No Fatigue, No Malaise, No Appetite, No Other HEENT: No Head Aches, No Visual Changes, No Eye Pain, No Ear Pain, No Dysphasia, No Sinus Congestion, No Post Nasal Drip, No Sore Throat, No Other Pulmonary: No Dyspnea, No Cough, No Pleuritic Chest Pain, No Other Cardiovascular: Chest Pain; No: Palpitations, Orthopnea, Paroxysmal Noc. Dyspnea, Edema, Lt Headedness, Other Objective-Cardiology Exam Last Set of Vital Signs Vital Signs 11/03/18 11/08/18 19:46 15:47 Temp 99.3 Pulse 95 Resp 18 B/P (MAP) 128/73 (91) Pulse Ox 98 O2 Delivery Nasal Cannula O2 Flow Rate 2.00 FiO2 21 Capillary Refill : Less Than 3 Seconds I&O Intake and Output 11/08/18 00:00 Intake Total 890 ml Output Total 1400 ml Balance -510 ml Intake Oral 740 ml IV Total 150 ml Output Urine Total 1400 ml # Bowel Movements 1 General: Alert, Oriented X3, Cooperative, No Acute Distress HEENT: Atraumatic, PERRLA Neck: Supple Lungs: Normal Air Movement Heart: Regular Rate, Normal S1, Normal S2 Abdomen: Soft, No Tenderness Extremities: No Cyanosis Skin: No Rashes, No Breakdown Neuro: Normal Speech, Normal Tone, Sensation Intact Psych/Mental Status: Mood NL Results Lab Laboratory Tests 11/08/18 07:49 A/P-Cardiology Admission Diagnosis Pulmonary embolism Shortness of breath Liver mass Chest pain Assessment/Plan Bilateral pulmonary embolism, acute, shortness of breath. tolerating Lovenox well. Continue to monitor Status post EGD, revealing healing ulcers, hiatal hernia. Intolerance to heparin with severe chest pain, improved after stopping heparin, cardiac enzymes and EKG did not show any acute abnormality. Continue to monitor Questionable pulmonary infiltrate. Managed by primary care team. Chest pain, nonspecific etiology, no acute EKG changes, cardiac enzymes are negative, having reproducible pain at the left lower sternal border. Will need to have a stress test as an outpatient once clinically stable Hematemesis, has history of nausea and vomiting, EGD showed erosion, ambar ulcer, managed by primary care team Anemia, monitor H&H closely, tolerating Lovenox, H&H are stable at this point. Hiatal hernia, history of recurrent nausea and vomiting BPH, maintained on Flomax Shortness of breath, secondary to pulmonary embolism Multiple liver masses, questionable primary versus metastases, s/p liver biopsy, results pending. Clinical Quality Measures DVT/VTE Risk/Contraindication: Risk Factor Score Per Nursin RFS Level Per Nursing on Admit: 4+=Very High SHERLEY ROTHMAN MD Nov 08, 2018 16:27
--- NOTE | 2018-11-08 16:41 | Progress Note - Surgery ---
CARLTON CULVER,MED STUDENT 11/08/18 1641: Subjective Date Seen by a Provider: Nov 08, 2018 Time Seen by a Provider: 09:56 Subjective/Events-last exam PT Hgb trending up to 7.7. Admits some emesis which is normal and new onset abdominal pain. Not experiencing shortness of breath. No other new complaints. Denies nausea, chest pain, fever, chills. Objective Exam Vital Signs Date Time Temp Pulse Resp B/P (MAP) Pulse Ox O2 Delivery O2 Flow Rate FiO2 11/08/18 15:47 99.3 95 18 128/73 (91) 98 Nasal Cannula 2.00 11/08/18 15:06 95 Nasal Cannula 2.00 11/08/18 12:22 111 11/08/18 12:00 100.8 110 20 148/76 (100) 95 Room Air 11/08/18 08:00 98.3 116 18 120/66 (84) 90 Room Air 11/08/18 08:00 Room Air 11/08/18 07:00 109 11/08/18 06:56 98 Room Air 11/08/18 04:00 97.5 96 19 144/77 (99) 95 Nasal Cannula 2.00 11/08/18 01:00 80 11/08/18 00:00 97.4 90 18 121/68 (85) 93 Room Air 11/07/18 20:14 92 Room Air 11/07/18 20:00 100.6 103 20 124/65 (84) 94 Room Air 11/07/18 19:39 100.8 11/07/18 19:30 Room Air 11/07/18 19:00 108 11/07/18 18:15 102 18 144/68 (93) 92 Room Air I & O 11/08/18 07:00 Intake Total 1190 ml Output Total 1000 ml Balance 190 ml Capillary Refill : Less Than 3 Seconds General Appearance: No Apparent Distress, WD/WN HEENT: PERRL/EOMI, Pharynx Normal Neck: Full Range of Motion, Non Tender, Supple Respiratory: Chest Non Tender, Normal Breath Sounds, No Respiratory Distress Cardiovascular: Regular Rate, Rhythm Gastrointestinal: normal bowel sounds, soft, tenderness Extremity: Normal Inspection, Non Tender Neurologic/Psychiatric: Alert, No Motor/Sensory Deficits; No Disoriented Skin: Normal Color, Warm/Dry Lymphatic: No Adenopathy Results Lab Laboratory Tests 11/08/18 07:49: White Blood Count 16.1H, Red Blood Count 3.80L, Hemoglobin 7.7L, Hematocrit 27L, Mean Corpuscular Volume 70L, Mean Corpuscular Hemoglobin 20L, Mean Corpuscular Hemoglobin Concent 29L, Red Cell Distribution Width 22.4H, Platelet Count 412H, Mean Platelet Volume 8.4, Neutrophils (%) (Auto) 78H, Lymphocytes (%) (Auto) 14, Monocytes (%) (Auto) 7, Eosinophils (%) (Auto) 2, Basophils (%) (Auto) 0, Neut rophils # (Auto) 12.5H, Lymphocytes # (Auto) 2.2, Monocytes # (Auto) 1.1H, Eosinophils # (Auto) 0.3, Basophils # (Auto) 0.0, Sodium Level 134L, Potassium Level 3.7, Chloride Level 105, Carbon Dioxide Level 20L, Anion Gap 9, Blood Urea Nitrogen 11, Creatinine 0.88, Estimat Glomerular Filtration Rate > 60, BUN/C reatinine Ratio 13, Glucose Level 140H, Calcium Level 8.3L 11/08/18 15:30: Troponin I < 0.028 Microbiology 11/03/18 Blood Culture - Preliminary, Resulted Staph, Coag Neg ([facility]) 11/05/18 MRSA Screen - Final, Complete MRSA not isolated Assessment/Plan Assessment/Plan Assessment/Plan b/l pe liver masses hematemesis anemia hiatal hernia DVT right popliteal, right peroneal turnk, deep calf S/p liver biopsy awaiting results s/p EGD w/ biopsy awaiting results transfuse prn Clinical Quality Measures DVT/VTE Risk/Contraindication: Risk Factor Score Per Nursin RFS Level Per Nursing on Admit: 4+=Very High GENESIS KAMINSKI DO 11/08/18 1651: Subjective Subjective/Events-last exam slight discomfort at biopsy site ruq. breathing improved. hgb stable. some emesis, but ate entire tray which usually eating too much causes him to have emesis. Assessment/Plan Assessment/Plan Assessment/Plan from surgical standpoint patient stable will have follow up outpatient. Supervisory-Addendum Brief Verification & Attestation Time: Verification & Attestat.: 16:59 Participated in pt care: history, MDM, physical Personally performed: exam, history, MDM, supervision of care Care discussed with: Medical Student Procedures: n/a Results interpretation: Verified all documentation Verification and Attestation of Medical Student E/M Service A medical student performed and documented this service in my presence. I reviewed and verified all information documented by the medical student and made modifications to such information, when appropriate. I personally performed the physical exam and medical decision making. Genesis Kaminski, Nov 08, 2018,16:59 CARLTON CULVER,MED STUDENT Nov 08, 2018 16:41 GENESIS KAMINSKI DO Nov 08, 2018 16:59
[2018-11-08] MEDS: TAMSULOSIN 0.4 MG (FLOMAX) CAP PO SCH (18:03)
[2018-11-08 20:37] VITALS: BP 133/63
[2018-11-08] MEDS: DOCUSATE SODIUM 100 MG (COLACE) CAP PO SCH (20:56)
[2018-11-09] VITALS: BP 129/61
[2018-11-09 04:00] VITALS: BP 132/65
[2018-11-09 06:04] LABS: BASOPHILS % (AUTO) 0 % (0-10); EOSINOPHILS # (AUTO) 0.3 10^3/uL (0.0-0.3); EOSINOPHILS % (AUTO) 2 % (0-10); HEMATOCRIT 26 % (40-54); HEMOGLOBIN 7.4 G/DL (13.3-17.7); LYMPHOCYTES # (AUTO) 1.9 X 10^3 (1.0-4.0); LYMPHOCYTES % (AUTO) 13 % (12-44); MEAN CORPUSCULAR HEMOGLOBIN 20 PG (25-34); MEAN CORPUSCULAR HGB CONC 29 G/DL (32-36); MEAN CORPUSCULAR VOLUME 70 FL (80-99); MEAN PLATELET VOLUME 8.7 FL (7.4-10.4); MONOCYTES # (AUTO) 1.3 X 10^3 (0.0-1.0); MONOCYTES % (AUTO) 9 % (0-12); NEUTROPHILS # (AUTO) 11.2 X 10^3 (1.8-7.8); NEUTROPHILS % (AUTO) 76 % (42-75); PLATELET COUNT 467 10^3/uL (130-400); RED CELL DISTRIBUTION WIDTH 22.9 % (10.0-14.5); WHITE BLOOD COUNT 14.7 10^3/uL (4.3-11.0)
[2018-11-09 06:22] LABS: BUN/CREATININE RATIO 14; CALCIUM 8.4 MG/DL (8.5-10.1); CARBON DIOXIDE 21 MMOL/L (21-32); CHLORIDE 105 MMOL/L (98-107); CREATININE SERUM 0.79 MG/DL (0.60-1.30); GFR ESTIMATED > 60; GLUCOSE 83 MG/DL (70-105); POTASSIUM 4.2 MMOL/L (3.6-5.0); SODIUM 136 MMOL/L (135-145)
[2018-11-09 06:43] LABS: ANISOCYTOSIS MODERATE; EOSINOPHILS % (MANUAL) 2 %; HYPOCHROMASIA MODERATE; LYMPHOCYTES % (MANUAL) 14 %; MICROCYTOSIS MODERATE; MONOCYTES % (MANUAL) 8 %; NEUTROPHILS % (MANUAL) 76 %
--- NOTE | 2018-11-09 07:10 | Progress Note - Surgery ---
CARLTON CULVER,MED STUDENT 11/09/18 0710: Subjective Date Seen by a Provider: Nov 09, 2018 Time Seen by a Provider: 07:05 Subjective/Events-last exam Pt experienced mild fever and sweats overnight. Feeling better this morning. Complains surgical pain that is slightly improved today. Has had no vomiting since yesterday and denies hematemesis. Experienced some chest pain on breathing treatment that has improved. No other complaints at this time. Denies bowel movements, nausea, shortness of breath. Review of Systems General: No Chills; Fatigue, Appetite Pulmonary: No Dyspnea Cardiovascular: Chest Pain (see hpi) Gastrointestinal: Abdominal Pain (see hpi ); No: Nausea, Vomiting Genitourinary: Frequency (urinated 10/12 times overnight) Objective Exam Vital Signs Date Time Temp Pulse Resp B/P (MAP) Pulse Ox O2 Delivery O2 Flow Rate FiO2 11/09/18 04:00 99.6 100 20 132/65 (87) 91 Nasal Cannula 2.00 11/09/18 01:00 120 11/09/18 00:00 99.2 96 20 129/61 (83) 92 Nasal Cannula 2.00 11/08/18 20:37 98.8 99 20 133/63 (86) 94 Nasal Cannula 2.00 11/08/18 20:00 Nasal Cannula 2.00 11/08/18 19:00 82 11/08/18 15:47 99.3 95 18 128/73 (91) 98 Nasal Cannula 2.00 11/08/18 15:06 95 Nasal Cannula 2.00 11/08/18 12:22 111 11/08/18 12:00 100.8 110 20 148/76 (100) 95 Room Air 11/08/18 08:00 98.3 116 18 120/66 (84) 90 Room Air 11/08/18 08:00 Room Air I & O 11/09/18 07:00 Intake Total 2060 ml Balance 2060 ml Capillary Refill : Less Than 3 Seconds General Appearance: No Apparent Distress, WD/WN HEENT: PERRL/EOMI, Pharynx Normal Neck: Full Range of Motion, Normal Inspection, Non Tender, Supple Respiratory: Normal Breath Sounds, No Accessory Muscle Use, No Respiratory Distress, Other (chest pain see hpi ) Cardiovascular: Tachycardia Gastrointestinal: normal bowel sounds, soft, tenderness (surgical pain) Extremity: Normal Inspection, Non Tender Neurologic/Psychiatric: Alert, No Motor/Sensory Deficits; No Disoriented Skin: Normal Color, Warm/Dry Lymphatic: No Adenopathy Results Lab Laboratory Tests 11/08/18 07:49: White Blood Count 16.1H, Red Blood Count 3.80L, Hemoglobin 7.7L, Hematocrit 27L, Mean Corpuscular Volume 70L, Mean Corpuscular Hemoglobin 20L, Mean Corpuscular Hemoglobin Concent 29L, Red Cell Distribution Width 22.4H, Platelet Count 412H, Mean Platelet Volume 8.4, Neutrophils (%) (Auto) 78H, Lymphocytes (%) (Auto) 14, Monocytes (%) (Auto) 7, Eosinophils (%) (Auto) 2, Basophils (%) (Auto) 0, Neutrophils # (Auto) 12.5H, Lymphocytes # (Auto) 2.2, Monocytes # (Auto) 1.1H, Eosinophils # (Auto) 0.3, Basophils # (Auto) 0.0, Sodium Level 134L, Potassium Level 3.7, Chloride Level 105, Carbon Dioxide Level 20L, Anion Gap 9, Blood Urea Nitrogen 11, Creatinine 0.88, Estimat Glomerular Filtration Rate > 60, BUN/Creatinine Ratio 13, Glucose Level 140H, Calcium Level 8.3L 11/08/18 15:30: Troponin I < 0.028 11/09/18 05:25: White Blood Count 14.7H, Red Blood Count 3.71L, Hemoglobin 7.4L, Hematocrit 26L, Mean Corpuscular Volume 70L, Mean Corpuscular Hemoglobin 20L, Mean Corpuscular Hemoglobin Concent 29L, Red Cell Distribution Width 22.9H, Platelet Count 467H, Mean Platelet Volume 8.7, Neutrophils (%) (Auto) 76H, Lymphocytes (%) (Auto) 13, Monocytes (%) (Auto) 9, Eosinophils (%) (Auto) 2, Basophils (%) (Auto) 0, Neutrophils # (Auto) 11.2H, Lymphocytes # (Auto) 1.9, Monocytes # (Auto) 1.3H, Eosinophils # (Auto) 0.3, Basophils # (Auto) 0.0, Sodium Level 136, Potassium Level 4.2, Chloride Level 105, Carbon Dioxide Level 21, Anion Gap 10, Blood Urea Nitrogen 11, Creatinine 0.79, Estimat Glomerular Filtration Rate > 60, BUN/Creatinine Ratio 14, Glucose Level 83, Calcium Level 8.4L, Neutrophils % (Manual) 76, Lymphocytes % (Manual) 14, Monocytes % (Manual) 8, Eosinophils % (Manual) 2, Hypochromasia MODERATE, Anisocytosis MODERATE, Microcytosis MODERATE Microbiology 11/03/18 Blood Culture - Final, Complete Staph, Coag Neg ([employer]ER) 11/05/18 MRSA Screen - Final, Complete MRSA not isolated Assessment/Plan Assessment/Plan Assessment/Plan from surgical standpoint patient stable will have follow up outpatient. Clinical Quality Measures DVT/VTE Risk/Contraindication: Risk Factor Score Per Nursin RFS Level Per Nursing on Admit: 4+=Very High GENESIS KAMINSKI DO 11/09/18 1133: Subjective Subjective/Events-last exam feeling good this morning. no significant abd pain. no n/v. no abd pain from biopsy Objective Exam General Appearance: No Apparent Distress, WD/WN HEENT: PERRL/EOMI Respiratory: Chest Non Tender Cardiovascular: Regular Rate, Rhythm Gastrointestinal: normal bowel sounds, non tender, soft; No tenderness Skin: Normal Color, Warm/Dry Lymphatic: No Adenopathy Assessment/Plan Assessment/Plan Assessment/Plan b/l pe liver masses hematemesis anemia hiatal hernia DVT right popliteal, right peroneal turnk, deep calf follow up on biopsies diet as tolerates instructed multiple small meals patient okay to dc from surgical standpoint. Supervisory-Addendum Brief Verification & Attestation Time: Verification & Attestat.: 11:33 Participated in pt care: history, MDM, physical Personally performed: exam, history, MDM, supervision of care Care discussed with: Medical Student Procedures: n/a Results interpretation: Verified all documentation Verification and Attestation of Medical Student E/M Service A medical student performed and documented this service in my presence. I reviewed and verified all information documented by the medical student and made modifications to such information, when appropriate. I personally performed the physical exam and medical decision making. Genesis Kaminski, Nov 09, 2018,11:33 CARLTON CULVER,MED STUDENT Nov 09, 2018 07:10 GENESIS KAMINSKI DO Nov 09, 2018 11:33
[2018-11-09 07:27] VITALS: BP 119/68
[2018-11-09] MEDS: DOCUSATE SODIUM 100 MG (COLACE) CAP PO SCH (08:44)
[2018-11-09] MEDS: ENOXAPARIN 100 MG/1 ML (LOVENOX) SYR SC SCH (08:44)
[2018-11-09] MEDS: PANTOPRAZOLE 40 MG (PROTONIX) TAB PO SCH (08:45)
[2018-11-09] MEDS: ACETAMINOPHEN 500 MG TAB (TYLENOL) PO PRN (08:45)
--- NOTE | 2018-11-09 10:34 | Cardiology Progress Note ---
Subjective Date Seen by Provider: Nov 09, 2018 Time Seen by Provider: 10:33 Subjective/Events-last exam Patient is sitting up in bed, no new complaints. Denies any chest pain or dyspnea. No other complaints at this time. Review of Systems General: No Chills, No Night Sweats, No Fatigue, No Malaise, No Appetite, No Other HEENT: No Head Aches, No Visual Changes, No Eye Pain, No Ear Pain, No Dysphasia, No Sinus Congestion, No Post Nasal Drip, No Sore Throat, No Other Pulmonary: No Dyspnea, No Cough, No Pleuritic Chest Pain, No Other Cardiovascular: No: Chest Pain, Palpitations, Orthopnea, Paroxysmal Noc. Dyspnea, Edema, Lt Headedness, Other Objective-Cardiology Exam Last Set of Vital Signs Vital Signs 11/03/18 11/09/18 11/09/18 19:46 07:27 08:20 Temp 99.5 Pulse 109 Resp 20 B/P (MAP) 119/68 (85) Pulse Ox 91 O2 Delivery Nasal Cannula O2 Flow Rate 2.00 FiO2 21 Capillary Refill : Less Than 3 Seconds I&O Intake and Output 11/09/18 00:00 Intake Total 2060 ml Balance 2060 ml Intake Oral 2060 ml # Voids 12 # Emeses 2 General: Alert, Oriented X3, Cooperative, No Acute Distress HEENT: Atraumatic, PERRLA Neck: Supple Lungs: Normal Air Movement Heart: Regular Rate, Normal S1, Normal S2 Abdomen: Soft, No Tenderness Extremities: No Cyanosis Skin: No Rashes, No Breakdown Neuro: Normal Speech, Normal Tone, Sensation Intact Psych/Mental Status: Mood NL Results Lab Laboratory Tests 11/09/18 05:25 A/P-Cardiology Admission Diagnosis Pulmonary embolism Shortness of breath Liver mass Chest pain Assessment/Plan Bilateral pulmonary embolism, acute, shortness of breath. tolerating Lovenox well. Continue to monitor Status post EGD, revealing healing ulcers, hiatal hernia. Intolerance to heparin with severe chest pain, improved after stopping heparin, cardiac enzymes and EKG did not show any acute abnormality. Continue to monitor Questionable pulmonary infiltrate. Managed by primary care team. Chest pain, nonspecific etiology, no acute EKG changes, cardiac enzymes are negative, having reproducible pain at the left lower sternal border. Will need to have a stress test as an outpatient once clinically stable Hematemesis, has history of nausea and vomiting, EGD showed erosion, ambar ulcer, managed by primary care team Anemia, monitor H&H closely, tolerating Lovenox, H&H are stable at this point. Hiatal hernia, history of recurrent nausea and vomiting BPH, maintained on Flomax Shortness of breath, secondary to pulmonary embolism Multiple liver masses, questionable primary versus metastases, s/p liver biopsy, results pending. Clinical Quality Measures DVT/VTE Risk/Contraindication: Risk Factor Score Per Nursin RFS Level Per Nursing on Admit: 4+=Very High Supervisory-Addendum Brief Supervisory Addendum Participated in pt care: history, MDM, physical Personally performed: exam, history, MDM Care discussed with: MARK Notes: patient was seen and evaluated with Machelle, examination showed normal sinus rhythm, clear lungs. Discussed the management with the patient and his family and Dr. Kaminski. He is going home today, continue on PPI, arrange for follow-up as an outpatient, no change from cardiology standpoint. MACHELLE RAMSEY Nov 09, 2018 10:34 SHERLEY ROTHMAN MD Nov 09, 2018 11:22
--- NOTE | 2018-11-09 10:59 | Discharge Summary ---
Diagnosis/Chief Complaint Date of Admission Nov 03, 2018 at 15:30 Date of Discharge Discharge Date: Nov 09, 2018 Discharge Time: 12:00 Admission Diagnosis Bilateral PE Normocytic Anemia PNA Discharge Diagnosis Bilateral PE PNA Liver masses Costochondritis Normocytic anemia (1) RLL pneumonia Status: Acute (2) Bilateral pulmonary embolism Status: Acute (3) Liver mass Status: Acute (4) Normocytic anemia Status: Acute (5) Chest wall pain Status: Acute Discharge Summary Discharge Physical Exam Allergies: Coded Allergies: heparin (Verified Allergy, Unknown, CHEST PAIN, 11/06/18) Vitals & I&Os Vital Signs Date Time Temp Pulse Resp B/P (MAP) Pulse Ox O2 Delivery O2 Flow Rate FiO2 11/09/18 08:20 Nasal Cannula 2.00 11/09/18 07:27 99.5 109 20 119/68 (85) 91 11/03/18 19:46 21 General Appearance: No Apparent Distress, WD/WN HEENT: PERRL/EOMI Respiratory: No Chest Non Tender; Normal Breath Sounds, No Respiratory Distress Cardiovascular: Regular Rate, Rhythm, No Murmur Gastrointestinal: Normal Bowel Sounds, Non Tender, Soft Extremity: Normal Inspection, Non Tender Skin: Normal Color, Warm/Dry Neurologic/Psychiatric: Alert; No Disoriented Hospital Course Martín Napoles is a 73yoM who presented with shortness of breath and was admitted with bilateral pulmonary embolisms. He was anticoagulated with Lovenox and eventually transitioned to Xarelto on discharge. He was also treated for pneumonia with Rocephin and Azithromycin. He was transitioned to Omnicef on discharge to complete a 10 day course. Initial imaging also revealed several liver lesions suspicious for metastatic disease. IR performed biopsy which is pending at the time of discharge. He reported hematemesis on admission. Further evaluation with EGD showed several non-bleeding, healing Tai ulcers at the site of his known hiatal hernia. He was started on a twice daily PPI. He had intermittent chest pain and this was determined to be musculoskeletal in nature. He should follow up with his PCP, Dr. Morales in about one week for hospital follow up as well as biopsy results and further recommendations. Labs (last 24 hrs) Laboratory Tests 11/08/18 15:30: Troponin I < 0.028 11/09/18 05:25: White Blood Count 14.7H, Red Blood Count 3.71L, Hemoglobin 7.4L, Hematocrit 26L, Mean Corpuscular Volume 70L, Mean Corpuscular Hemoglobin 20L, Mean Corpuscular Hemoglobin Concent 29L, Red Cell Distribution Width 22.9H, Platelet Count 467H, Mean Platelet Volume 8.7, Neutrophils (%) (Auto) 76H, Lymphocytes (%) (Auto) 13, Monocytes (%) (Auto) 9, Eosinophils (%) (Auto) 2, Basophils (%) (Auto) 0, Neutrophils # (Auto) 11.2H, Lymphocytes # (Auto) 1.9, Monocytes # (Auto) 1.3H, Eosinophils # (Auto) 0.3, Basophils # (Auto) 0.0, Neutrophils % (Manual) 76, Lymphocytes % (Manual) 14, Monocytes % (Manual) 8, Eosinophils % (Manual) 2, Hypochromasia MODERATE, Anisocytosis MODERATE, Microcytosis MODERATE, Sodium Level 136, Potassium Level 4.2, Chloride Level 105, Carbon Dioxide Level 21, Anion Gap 10, Blood Urea Nitrogen 11, Creatinine 0.79, Estimat Glomerular Filtration Rate > 60, BUN/Creatinine Ratio 14, Glucose Level 83, Calcium Level 8.4L Microbiology 11/03/18 Blood Culture - Final, Complete Staph, Coag Neg (WELT BEATER) 11/05/18 MRSA Screen - Final, Complete MRSA not isolated Patient resulted labs reviewed. Pending Labs Laboratory Tests 11/09/18 05:25: White Blood Count 14.7, Red Blood Count 3.71, Hemoglobin 7.4, Hematocrit 26, Mean Corpuscular Volume 70, Mean Corpuscular Hemoglobin 20, Mean Corpuscular Hemoglobin Concent 29, Red Cell Distribution Width 22.9, Platelet Count 467, Mean Platelet Volume 8.7, Neutrophils (%) (Auto) 76, Lymphocytes (%) (Auto) 13, Monocytes (%) (Auto) 9, Eosinophils (%) (Auto) 2, Basophils (%) (Auto) 0, Neutrophils # (Auto) 11.2, Lymphocytes # (Auto) 1.9, Monocytes # (Auto) 1.3, Eosinophils # (Auto) 0.3, Basophils # (Auto) 0.0, Neutrophils % (Manual) 76, Lymphocytes % (Manual) 14, Monocytes % (Manual) 8, Eosinophils % (Manual) 2, Hypochromasia MODERATE, Anisocytosis MODERATE, Microcytosis MODERATE, Sodium Level 136, Potassium Level 4.2, Chloride Level 105, Carbon Dioxide Level 21, Anion Gap 10, Blood Urea Nitrogen 11, Creatinine 0.79, Estimat Glomerular Filtration Rate > 60, BUN/Creatinine Ratio 14, Glucose Level 83, Calcium Level 8.4 Other pending tests Liver biopsy pathology pending Imaging: Reviewed Imaging Report Discussion & Recommendations Discharge Planning: >30 minutes discharge planning Discharge Home Medications: Active Scripts Active Xarelto (Rivaroxaban) 20 Mg Tablet 20 Mg PO DAILY 90 Days Take 15 mg twice daily for 21 days, then 20 mg once daily. Xarelto (Rivaroxaban) 15 Mg Tablet 15 Mg PO BID 21 Days Take 15 mg twice daily for 21 days, then 20 mg once daily. Cefdinir 300 Mg Capsule 300 Mg PO BID 5 Days Pantoprazole Sodium 40 Mg Tablet.dr 40 Mg PO BID 60 Days Reported Pantoprazole Sodium 40 Mg Tablet.dr 40 Mg PO DAILY Flomax (Tamsulosin HCl) 0.4 Mg Cap 0.4 Mg PO HS Condition at discharge Stable Instructions to patient/family Please see electronic discharge instructions given to patient. Clinical Quality Measures DVT/VTE Risk/Contraindication: Risk Factor Score Per Nursin RFS Level Per Nursing on Admit: 4+=Very High Copy Copies To 1: RODNEY MORALES MD Problem Qualifiers (1) RLL pneumonia: Pneumonia type: due to unspecified organism Qualified Codes: J18.1 - Lobar pneumonia, unspecified organism INÉS MARTINEZ MD Nov 09, 2018 10:59
--- NOTE | 2018-11-09 11:26 | NUR ---
CM/SS. Patient discharge home where he resides with his daughter, Katharina Napoles. DME: New home O2 coordinated with their choice agency, [employer]. Agency understands to deliver portable to patient room and partner with daughter regarding home set up arrangements. Unit RN aware patient will need portable prior to leaving hospital.
[2018-11-09 11:42] VITALS: BP_SYST 119; BP_SYST 144; BP_DIAS 68; BP_DIAS 75
[2018-11-09 14:25] VITALS: BP 119/68
--- NOTE | 2018-11-11 11:16 | Physician Query Clarification ---
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 Please document a response in Progress Notes or Discharge Summary. 1. Agree with pathological diagnosis of liver metastasis. 2. No - Do not agree with pathology findings of liver metastasis. 3. Other, with explanation of the clinical findings. 4. Clinically undetermined, no explanation for the clinical findings. Is is appropriate for a provider to add additional documentation (addenda) to the record to explain the evaluation & care up to 30 days post-discharge. See [facility] Patient Record Guidelines below. [facility] Chapter Record of Care, Standard; [id number].01.03.01EP 1: "The hospital has a written policy that required timely entry of information into the medical record." According to [facility] Patient Record Guidelines, ARTICLE XXI. CORRECTIONS AND ADDENDA, Modifications (addenda amendments, corrections and retractions) should be made timely and no later than regulatory requirements for record completion (i.e. 30 days post discharge). Official coding guidelines require coders to query the physician for agreement with pathology findings that occur during the encounter. Coders are not allowed to pull information directly from the path reports. PHYSICIAN RESPONSE Pathology Report Findings: Other,explanation/clinical findings (agree with pathologic diagnosis, but pathology was pending at discharage) Please remember a lack of response to the above will prompt a phone page by CDI/Coding staff. In responding to this query, please exercise your independent professional judgment. The purpose of this communication is to more accurately reflect the complexity of your patients condition. The fact that a question is asked does not imply that any particular answer is desired or expected. Thank you for your timely response to this clarification. Requestors name: Genaro THIS PHYSICIAN QUERY FORM IS A PERMANENT PART OF THE MEDICAL RECORD GENARO DREW Nov 11, 2018 11:16 INÉS MARTINEZ MD Nov 11, 2018 11:27
== END 2018-11-09 14:55 | disposition home or self-care (01) | DRG 175 ==
LOC: EDUNIT# 14:21 → ER 14:22 → 4TH 15:30
PROVIDERS: ADMIT Family Medicine; ATTEND Internal Medicine
PROC: 0DB78ZX Excision of Stomach, Pylorus, Via Natural or Artificial Opening Endoscopic, Diagnostic (ICD-10-PCS; 2018-11-07)
PROC: 0DB48ZX Excision of Esophagogastric Junction, Via Natural or Artificial Opening Endoscopic, Diagnostic (ICD-10-PCS; 2018-11-07)
PROC: 0FB13ZX Excision of Right Lobe Liver, Percutaneous Approach, Diagnostic (ICD-10-PCS; principal; 2018-11-07 08:30)
DX: I26.99 Other pulmonary embolism without acute cor pulmonale (principal); J18.1 Lobar pneumonia, unspecified organism; R16.0 Hepatomegaly, not elsewhere classified; K92.0 Hematemesis; D62 Acute posthemorrhagic anemia; C78.7 Secondary malignant neoplasm of liver and intrahepatic bile duct; K44.9 Diaphragmatic hernia without obstruction or gangrene; K25.9 Gastric ulcer, unspecified as acute or chronic, without hemorrhage or perforation; Z66 Do not resuscitate; M94.0 Chondrocostal junction syndrome [Tietze]; N40.0 Benign prostatic hyperplasia without lower urinary tract symptoms; D72.829 Elevated white blood cell count, unspecified; D47.3 Essential (hemorrhagic) thrombocythemia; R73.9 Hyperglycemia, unspecified; M25.512 Pain in left shoulder; F32.9 Major depressive disorder, single episode, unspecified; J30.2 Other seasonal allergic rhinitis; Z87.891 Personal history of nicotine dependence
CPT/HCPCS: 36415; 71045; 71275; 74177; 77012; 80048; 80053; 82550; 82553; 82728; 83540; 83605; 83735; 83874; 83880; 84484; 85007; 85025; 85027; 85610; 85730; 86850; 86900; 86901; 86920; 87040; 87081; 93005; 93041; 93306; 93970; 94640; 94760; 94761; 96374; 96375; 99156

== ENCOUNTER → 2018-11-14 | Outpatient (CLI) | payer MEDICARE ==
[~2018-11-14] MED LIST changes: +CEFD300C3 PO; +PANT40TA2 PO; +PANT40TA3 PO; +RIVA15TA PO; +RIVA20TA PO; +TAMS0.4C98 PO
[2018-11-14 11:51] LABS: BASOPHILS % (AUTO) 0 % (0-10); EOSINOPHILS % (AUTO) 0 % (0-10); HEMATOCRIT 28 % (40-54); HEMOGLOBIN 8.2 G/DL (13.3-17.7); LYMPHOCYTES # (AUTO) 1.2 X 10^3 (1.0-4.0); LYMPHOCYTES % (AUTO) 6 % (12-44); MEAN CORPUSCULAR HEMOGLOBIN 21 PG (25-34); MEAN CORPUSCULAR HGB CONC 29 G/DL (32-36); MEAN CORPUSCULAR VOLUME 71 FL (80-99); MEAN PLATELET VOLUME 8.5 FL (7.4-10.4); MONOCYTES # (AUTO) 1.1 X 10^3 (0.0-1.0); MONOCYTES % (AUTO) 6 % (0-12); NEUTROPHILS # (AUTO) 17.3 X 10^3 (1.8-7.8); NEUTROPHILS % (AUTO) 88 % (42-75); PLATELET COUNT 447 10^3/uL (130-400); RED CELL DISTRIBUTION WIDTH 22.8 % (10.0-14.5); WHITE BLOOD COUNT 19.6 10^3/uL (4.3-11.0)
[2018-11-14 12:42] LABS: ANISOCYTOSIS SLIGHT; BAND NEUTROPHILS 2 %; BASOPHILS % (MANUAL) 0 %; ELLIPT/OVALOCYTES SLIGHT; EOSINOPHILS % (MANUAL) 0 %; HYPOCHROMASIA SLIGHT; LYMPHOCYTES % (MANUAL) 4 %; MONOCYTES % (MANUAL) 5 %; NEUTROPHILS % (MANUAL) 89 %
== END ==
LOC: LAB 11:22
PROVIDERS: ATTEND Physician Assistant
DX: D64.9 Anemia, unspecified (principal)
CPT/HCPCS: 36415; 85007; 85027

== ENCOUNTER 2018-11-16 08:53 | Inpatient (IN) | payer MEDICARE ==
[~2018-11-16] VITALS: Ht 170.2 cm; Wt 84.6 kg
[~2018-11-16 08:53] MED LIST changes: -PANT40TA2 PO
[2018-11-16] MEDS ORDERED: NS IV 1000 ML 1,000 ML IV SCH ×2 (09:03)
[2018-11-16] MEDS ORDERED: ASPIRIN 81 MG CHEW (CHILDREN'S ASA) PO ONE (09:15)
[2018-11-16] MEDS ORDERED: CEFEPIME INJECTION 1,000 MG in WATER (STERILE) FOR INJECTION 10 ML IV ONE (09:15)
[2018-11-16] MEDS ORDERED: ONDANSETRON 4 MG/2 ML (SDV) Z0FRAN IV PRN ×2 (09:15→15:00)
[2018-11-16] MEDS ORDERED: ACETAMINOPHEN 500 MG TAB (TYLENOL) PO PRN ×3 (09:15→15:00)
[2018-11-16 09:16] LABS: BASOPHILS % (AUTO) 0 % (0-10); EOSINOPHILS # (AUTO) 0.2 10^3/uL (0.0-0.3); EOSINOPHILS % (AUTO) 1 % (0-10); HEMATOCRIT 28 % (40-54); HEMOGLOBIN 8.2 G/DL (13.3-17.7); LYMPHOCYTES # (AUTO) 2.2 X 10^3 (1.0-4.0); LYMPHOCYTES % (AUTO) 11 % (12-44); MEAN CORPUSCULAR HEMOGLOBIN 20 PG (25-34); MEAN CORPUSCULAR HGB CONC 29 G/DL (32-36); MEAN CORPUSCULAR VOLUME 71 FL (80-99); MEAN PLATELET VOLUME 8.4 FL (7.4-10.4); MONOCYTES # (AUTO) 1.9 X 10^3 (0.0-1.0); MONOCYTES % (AUTO) 9 % (0-12); NEUTROPHILS # (AUTO) 16.3 X 10^3 (1.8-7.8); NEUTROPHILS % (AUTO) 79 % (42-75); PLATELET COUNT 492 10^3/uL (130-400); RED CELL DISTRIBUTION WIDTH 23.1 % (10.0-14.5); WHITE BLOOD COUNT 20.5 10^3/uL (4.3-11.0)
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
[2018-11-16 09:26] LABS: INR 2.4 (0.8-1.4); PROTHROMBIN TIME PATIENT 27.1 SEC (12.2-14.7)
--- NOTE | 2018-11-16 09:26 | Diagnostic Imaging Report ---
Indication: Shortness of air. Time of exam: 9:17 AM Correlation is made with prior study 11/03/2018. The heart size is stable. Lungs are clear. No infiltrates are seen. No effusion or pneumothorax. Postop changes left clavicle are noted. Impression: No acute cardiopulmonary process is detected. Dictated by: Dictated on workstation # [id number]
[2018-11-16 09:32] LABS: ALANINE AMINOTRANSFERASE 126 U/L (0-55); ALKALINE PHOSPHATASE 686 U/L (40-136); BILIRUBIN,TOTAL 1.3 MG/DL (0.1-1.0); BUN/CREATININE RATIO 20; CALCIUM 8.5 MG/DL (8.5-10.1); CARBON DIOXIDE 26 MMOL/L (21-32); CHLORIDE 100 MMOL/L (98-107); CREATININE SERUM 0.83 MG/DL (0.60-1.30); GFR ESTIMATED > 60; GLUCOSE 89 MG/DL (70-105); POTASSIUM 4.5 MMOL/L (3.6-5.0); SODIUM 134 MMOL/L (135-145); TOTAL PROTEIN 6.7 GM/DL (6.4-8.2)
[2018-11-16 10:17] LABS: ANISOCYTOSIS MODERATE; BASOPHILS % (MANUAL) 0 %; ELLIPT/OVALOCYTES SLIGHT; EOSINOPHILS % (MANUAL) 0 %; HYPOCHROMASIA SLIGHT; LYMPHOCYTES % (MANUAL) 16 %; MICROCYTOSIS MODERATE; MONOCYTES % (MANUAL) 6 %; NEUTROPHILS % (MANUAL) 76 %; POIKILOCYTOSIS SLIGHT; REACTIVE LYMPHOCYTES 2 %
[2018-11-16 10:19] LABS: TARGET CELLS SLIGHT
--- NOTE | 2018-11-16 10:41 | History & Physical-Hospitalist ---
IVONNE SLAUGHTER,MED STUDENT 11/16/18 1041: History of Present Illness HPI/Chief Complaint Patient is a 73y/o M that presented to the ER with SOB and tachycardia. SOB and tachycardia at started between 0430 and 0500 this morning and was made worse by activity and nothing made it better. Patient also states that he is having chest pain localized to L-side that does not radiate to shoulder or back. Chest pain is described as constant but gets worse with deep inhalation and palpation. Pt stated that he was admitted to the [facility] 2wks ago the same reason and was discharged form [facility] a week ago. Patient denies fever, chills, nausea, diarrhea, dysuria, numbness, tingling and palpitation; admits to cough, chest pain localized to L, constipation, lost of 20lbs in last 3wks and weakness in this L arm. Patient says that he vomits every time that he eat, symptoms have been present for >10yrs. Patient is a poor historian. Source: patient Date Seen 11/16/18 Time Seen by a Provider: 11:00 Attending Physician Kathya George MD PCP Megan Morales MD Referring Physician Date of Admission Nov 16, 2018 at 10:21 Home Medications & Allergies Home Medications Reviewed patient Home Medication Reconciliation performed by pharmacy medication reconciliations library cataloging technician and/or nursing. Patients Allergies have been reviewed. Allergies Allergies Coded Allergies heparin (Verified Allergy, Unknown, CHEST PAIN, 11/06/18) Past Nvzueme-Xbuzth-Asdrej Hx Patient Social History Marrital Status: Number of Children: 4 Number of living children: 4 Employed/Student: retired Alcohol Use: Past History Alcohol Beverage of Choice: Other (moonshine ) Recreational Drug Use: No Smoking Status: Former Smoker (3ppd for 65yrs ) Former Smoker, Quit: Nov 27, 2013 Type Used: Cigarettes 2nd Hand Smoke Exposure: Yes Recent Foreign Travel: No Contact w/other who traveled: No Recent Hopitalizations: No Recent Infectious Disease Expo: No Immunizations Up To Date Tetanus Booster (TDap): More than 5yrs Seasonal Allergies Seasonal Allergies: Yes Past Medical History Surgeries: Abdominal, Orthopedic Neurological: Concussion Genitourinary: Benign Prostatic Hyperpl Gastrointestinal: Abdominal Hernia Musculoskeletal: Fractures Hearing Impairment: Denies Psychosocial: Depression History of Blood Disorders: No Adverse Reaction to Blood Crawford: No Family History Patient reports no known family medical history. No Pertinent Family Hx Review of Systems Constitutional: see HPI Respiratory: see HPI Cardiovascular: see HPI Gastrointestinal: see HPI Musculoskeletal: see HPI Physical Exam Physical Exam Vital Signs Vital Signs - First Documented 11/16/18 09:00 Temp 101.6 Pulse 114 Resp 20 B/P (MAP) 116/65 (82) Pulse Ox 97 Capillary Refill : Less Than 3 Seconds Height, Weight, BMI Height: 5'7.00" Weight: 185lbs. 9.6oz. 83.879746km; 30.1 BMI Method:Stated General Appearance: No Apparent Distress, Chronically ill, Obese Respiratory: No Accessory Muscle Use, No Respiratory Distress, Decreased Breath Sounds Cardiovascular: No Edema, Normal Peripheral Pulses Gastrointestinal: Normal Bowel Sounds, No Pulsatile Mass, Soft, Guarding, Tenderness (RUQ and LUQ close to costal cartilage ) Extremity: Non Tender, No Calf Tenderness, No Pedal Edema Neurologic/Psychiatric: Alert, Oriented x3, Normal Mood/Affect Skin: Normal Color, Warm/Dry Results Results/Procedures Labs Laboratory Tests 11/16/18 09:06 Patient resulted labs reviewed. Assessment/Plan Admission Diagnosis Severe sepsis d/t suspected PNA Admission Status: Inpatient Order (span 2 midnights) Reason for Inpatient Admission: Severe sepsis d/t suspected healthcare associated PNA Assessment and Plan Severe sepsis d/t suspected healthcare associated PNA * CXR * Blood and sputum cultures * Cefepime and Vancomycin IV * Fluids -- 2L NS PE diagnosed 11/03 * Lovenox adenocarcinoma of liver * consult oncology Microcytic anemia * Iron study - pending Coagulopathy * multifactorial Elevated lactic acid -- resolved * Fluids -- NS FENGIPPX * Fluids - NS * Electrolytes - monitor and replace as need * Nutrition - regular diet * GI ppx - * PPX - already on tx for DVT/PE KATHYA GEORGE MD 11/16/18 8808: History of Present Illness HPI/Chief Complaint Pt is known to be from recent admission for large left sided PE, GI bleed, and newly diagnosed adenocarcinoma in the liver who presents due to shortness of breath and palpitations. He states it started abruptly and he had been doing very well after his discharge last week until this morning. He was discharged on e Xarelto per our records though is unable to tell me what his anticoagulant is. He believes he's taking it. He also states he vomits after eating anything and does not look at the vomit so he is not sure if his pills are coming back up as well. Past Plsleiy-Yojbun-Dvfgky Hx Past Med/Social Hx: Reviewed Nursing Past Med/Soc Hx Family History Reviewed Nursing Family Hx Patient reports no known family medical history. Physical Exam Physical Exam General Appearance: No Apparent Distress, Chronically ill HEENT: Normal ENT Inspection, Moist Mucous Membranes; No Scleral Icterus (L), No Scleral Icterus (R) Neck: Normal Inspection, Non Tender, Supple; No Lymphadenopathy (L), No Lymphadenopathy (R) Respiratory: Lungs Clear, No Accessory Muscle Use, No Respiratory Distress, Crackles Cardiovascular: Regular Rate, Rhythm, No Murmur, Normal Peripheral Pulses Gastrointestinal: Normal Bowel Sounds, Non Tender, Soft, Hepatomegaly, Tenderness (inconsistently so) Extremity: Normal Capillary Refill, Normal Inspection, Non Tender, No Calf Tenderness, No Pedal Edema Neurologic/Psychiatric: Alert, Oriented x3, Normal Mood/Affect Skin: Normal Color, Warm/Dry Results Results/Procedures Imaging: Reviewed Imaging Report Assessment/Plan Admission Diagnosis Admission Status: Inpatient Order (span 2 midnights) Reason for Inpatient Admission: Severe Sepsis, needs IV abx and will likely take more than 2 midnights to stabilize for discharge Supervisory-Addendum Brief Verification & Attestation Participated in pt care: history, MDM, physical Personally performed: exam, history, MDM, supervision of care Care discussed with: Medical Student Procedures: n/a Results interpretation: Verified all documentation Verification and Attestation of Medical Student E/M Service A medical student performed and documented this service in my presence. I reviewed and verified all information documented by the medical student and made modifications to such information, when appropriate. I personally performed the physical exam and medical decision making. Kathya George, Nov 16, 2018,21:35 IVONNE SLAUGHTER,MED STUDENT Nov 16, 2018 10:41 KATHYA GEORGE MD Nov 16, 2018 21:35
[2018-11-16 11:20] VITALS: BP 126/72
[2018-11-16 11:54] VITALS: BP 123/73
--- NOTE | 2018-11-16 12:00 | NUR ---
MIHIR RAPP admitted to room 418-1, with an admitting diagnosis of pneumonia, sepsis and history cancer, on 11/16/18 from ED via W/C, accompanied by staff. MIHIR RAPP introduced to surroundings, call light, bed controls, phone, TV, temperature control, lights, meal times, smoking policy, visitor policy, side rail policy, bathrooms and showers. Patient Rights given to patient in the handbook. MIHIR RAPP verbalizes understanding that [facility] is not responsible for the loss or damage to any personal effects or valuables that are kept in the patients posession during their hospitalization. The following Patient Care Plans were discussed with the patient: Discharge Planning,ineffective breathing, infection and knowledge. MIHIR RAPP verbalizes understanding of Interdisciplinary Patient Education.
[2018-11-16] MEDS ORDERED: CATHETER FLUSH 10 ML SYR IV PRN (12:15)
[2018-11-16] MEDS: NS IV 1000 ML 1,000 ML IV SCH ×3 (12:39→23:27)
[2018-11-16] MEDS ORDERED: RT-ALBUTEROL SULF 2.5 MG/3 ML PRE-MIX VIAL INH PRN (13:30)
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
[2018-11-16] MEDS ORDERED: RIVA20TA PO (13:57)
[2018-11-16] MEDS ORDERED: PANT40TA2 PO (13:57)
[2018-11-16] MEDS ORDERED: RIVA15TA PO (14:05)
[2018-11-16] MEDS ORDERED: VANCOMYCIN 1500 MG/NS 500 ML IVPB IV NR ×2 (14:30)
[2018-11-16] MEDS ORDERED: MELATONIN 3 MG TABLET PO PRN (15:00)
[2018-11-16] MEDS ORDERED: BENZONATATE 100 MG (TESSALON) CAPSULE PO PRN (15:00)
[2018-11-16] MEDS ORDERED: ANTACID SUSP 30 ML UDC (MYLANTA) PO PRN (15:00)
[2018-11-16] MEDS ORDERED: MILK OF MAGNESIA 400 MG/5 ML 30 ML UDC PO PRN (15:00)
[2018-11-16] MEDS ORDERED: ACETAMINOPHEN 325 MG TABLET PO PRN (15:00)
[2018-11-16] MEDS ORDERED: BISACODYL 10 MG SUPP (DULCOLAX) PR PRN (15:00)
[2018-11-16 15:53] VITALS: BP 131/68
[2018-11-16] MEDS: ENOXAPARIN 80 MG/0.8 ML (LOVENOX) SYR SC SCH (16:34)
[2018-11-16] MEDS: LACTOBACILLUS ACIDOPHILUS (PROBIOTIC) CAPSULE PO SCH (16:34)
[2018-11-16] MEDS: CEFEPIME 1,000 MG/SWFI 10 ML IV PUSH IV SCH ×4 (16:35→20:12)
[2018-11-16 20:32] VITALS: BP 120/66
[2018-11-17] VITALS (9 sets, daily range): BP systolic 100–132; BP diastolic 59–77
[2018-11-17] MEDS: CEFEPIME 1,000 MG/SWFI 10 ML IV PUSH IV SCH ×8 (02:28→20:32)
[2018-11-17] MEDS: ENOXAPARIN 80 MG/0.8 ML (LOVENOX) SYR SC SCH (02:28)
[2018-11-17] MEDS: VANCOMYCIN 1 GM/NS 250 ML IVPB IV SCH ×4 (02:28→15:09)
[2018-11-17 05:15] LABS: BASOPHILS % (AUTO) 0 % (0-10); EOSINOPHILS # (AUTO) 0.2 10^3/uL (0.0-0.3); EOSINOPHILS % (AUTO) 1 % (0-10); HEMATOCRIT 23 % (40-54); LYMPHOCYTES # (AUTO) 2.3 X 10^3 (1.0-4.0); LYMPHOCYTES % (AUTO) 12 % (12-44); MEAN CORPUSCULAR HEMOGLOBIN 20 PG (25-34); MEAN CORPUSCULAR HGB CONC 29 G/DL (32-36); MEAN CORPUSCULAR VOLUME 70 FL (80-99); MEAN PLATELET VOLUME 8.6 FL (7.4-10.4); MONOCYTES # (AUTO) 1.8 X 10^3 (0.0-1.0); MONOCYTES % (AUTO) 10 % (0-12); NEUTROPHILS # (AUTO) 14.6 X 10^3 (1.8-7.8); NEUTROPHILS % (AUTO) 77 % (42-75); PLATELET COUNT 456 10^3/uL (130-400); RED CELL DISTRIBUTION WIDTH 22.9 % (10.0-14.5)
[2018-11-17 05:49] LABS: HEMOGLOBIN 6.6 G/DL (13.3-17.7)
--- NOTE | 2018-11-17 05:53 | NUR ---
CALLED DR. FLORES TO NOTIFY HIM OF CRITICAL LAB RESULT - HGB 6.6 AND INFORMED HIM YESTERDAY'S LAB VALUE WAS HGB 8.2. DR FLORES ASKED "ANY EVIDENCE OF BLEEDING?" IN WHICH I REPLIED "NO." DR. FLORES INFORMED THIS RN TO HAVE DR. LIGHT ADDRESS THIS ISSUE IN AM. NO NEW ORDERS AT THIS TIME.
[2018-11-17] MEDS: LACTOBACILLUS ACIDOPHILUS (PROBIOTIC) CAPSULE PO SCH ×3 (06:17→16:07)
[2018-11-17 06:19] LABS: ALANINE AMINOTRANSFERASE 88 U/L (0-55); ALBUMIN 2.4 GM/DL (3.2-4.5); ALKALINE PHOSPHATASE 549 U/L (40-136); BILIRUBIN,TOTAL 1.4 MG/DL (0.1-1.0); BUN/CREATININE RATIO 23; CALCIUM 7.8 MG/DL (8.5-10.1); CARBON DIOXIDE 19 MMOL/L (21-32); CHLORIDE 105 MMOL/L (98-107); CREATININE SERUM 0.73 MG/DL (0.60-1.30); GFR ESTIMATED > 60; GLUCOSE 83 MG/DL (70-105); SODIUM 134 MMOL/L (135-145); TOTAL PROTEIN 5.4 GM/DL (6.4-8.2)
--- NOTE | 2018-11-17 07:23 | Progress Note - Hospitalist ---
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 He states it started abruptly and he had been doing very well after his discharge last week until this morning. He was discharged one Xarelto per our records though is unable to tell me what his anticoagulant is. He believes he's taking it. He also states he vomits after eating anything and does not look at the vomit so he is not sure if his pills are coming back up as well. Subjective/Events-last exam Patient says that last night was "rough". States that his chest pain became a /. Pain is localized to L parasternal area of thoracic cavity. Pain does not radiate. Patient also mentioned that we felt weakness last night and fell but his daughter and a nurse caught him before he hit the ground. Patients admits to fever, chills, diaphoresis, nausea, weakness. Patient denies stomach pain, SOB, numbness and tingling. Focused Exam Lactate Level 11/16/18 09:06: Lactic Acid Level 2.14*H 11/16/18 11:04: Lactic Acid Level 1.26 Objective Exam Vital Signs Vital Signs Date Time Temp Pulse Resp B/P (MAP) Pulse Ox O2 Delivery O2 Flow Rate FiO2 11/17/18 08:30 99.2 96 19 132/63 (86) 97 Room Air 11/16/18 11:20 21 Capillary Refill : Less Than 3 Seconds General Appearance: WD/WN, Chronically ill, Obese Respiratory: No Chest Non Tender; Lungs Clear, Normal Breath Sounds; No No Accessory Muscle Use; No Respiratory Distress Cardiovascular: Regular Rate, Rhythm, No Edema, No Gallop, No Murmur, Normal Peripheral Pulses Extremity: Normal Inspection, No Pedal Edema Neurologic/Psychiatric: Alert, Oriented x3, Normal Mood/Affect Skin: Cool, Jaundice, Pallor Results/Procedures Lab Laboratory Tests 11/17/18 04:30 Patient resulted labs reviewed. Imaging: Reviewed Imaging Report Assessment/Plan Assessment and Plan Assess & Plan/Chief Complaint Severe sepsis d/t suspected healthcare associated PNA --> Sepsis d/t suspected healthcare associated PNA * CXR * Blood and sputum cultures -pending * Cefepime and Vancomycin IV * Lactic acid >2- Resolved following fluid resuscitation * UA Microcytic anemia * Iron study - on last visit showed Iron deficiency * Type and Cross for pRBCs b/c of anemia and Hgb of 6.6 PE diagnosed 11/03 * Lovenox - Stops because of anemia * Consult for IVC filter Chest pain * Troponin levels normal X 3 * likely d/t PEs adenocarcinoma of liver * consult hematology & oncology Coagulopathy * multifactorial FENGIPPX * Fluids - NS @ 50ml/hr * Electrolytes - monitor and replace as need * Nutrition - regular diet * GI ppx - PPI and carafate * PPX - SCDs only Clinical Quality Measures DVT/VTE Risk/Contraindication: Risk Factor Score Per Nursin RFS Level Per Nursing on Admit: 4+=Very High SIMIN GEORGE MD 11/17/18 1:44pm: Subjective HPI/CC On Admission Time Seen by Provider: 13:45 Diagnosis/Problems Diagnosis/Problems (1) Sepsis Status: Acute Qualifiers: Qualified Codes: A41.9 - Sepsis, unspecified organism (2) Pneumonia Status: Acute Qualifiers: Qualified Codes: J18.9 - Pneumonia, unspecified organism (3) History of pulmonary embolism (4) BPH (benign prostatic hyperplasia) Status: Chronic (5) Liver mass Status: Acute (6) Thrombocytosis Status: Acute (7) Normocytic anemia Status: Acute Supervisory-Addendum Brief Verification & Attestation Participated in pt care: history, MDM, physical Personally performed: exam, history, MDM, supervision of care Care discussed with: Medical Student Procedures: n/a Results interpretation: Verified all documentation Verification and Attestation of Medical Student E/M Service A medical student performed and documented this service in my presence. I revie wed and verified all information documented by the medical student and made modifications to such information, when appropriate. I personally performed the physical exam and medical decision making. Simin George, Nov 17, 2018,13:40 IVONNE SLAUGHTER,MED STUDENT Nov 17, 2018 7:23 am SIMIN GEORGE MD Nov 17, 2018 1:44 pm
[2018-11-17] MEDS: NS IV 1000 ML 1,000 ML IV SCH (07:42)
[2018-11-17] MEDS: PANTOPRAZOLE 40 MG (PROTONIX) VIAL IV SCH (08:23)
--- NOTE | 2018-11-17 08:36 | Diagnostic Imaging Report ---
Indication: Mid chest pain. Time of exam 8:12 AM Correlation is made prior study from 11/16/2018. Heart size is stable. There is some residual atelectasis in the left base. Otherwise lungs are clear. No effusion or pneumothorax is seen. Postop changes left clavicle are noted. Impression: Mild left basilar subsegmental atelectasis. Dictated by: Dictated on workstation # [id number]
--- NOTE | 2018-11-17 10:02 | NUR ---
CM/SS. Patient is readmission. Boat Engine Mechanic coordinated new home O2 at recent discharge through [facility]. Patient stated this a.m. he was "using it when he needed it," he was checking his O2 sat at home to determine when to use it instead of the Rx continuous. Patient's daughter Katharina Napoles resides with him, patient indicates she is an RN who works in some sort of surgery center in , gone 3 days and here with him the rest. Patient describes a rough night last night, hot and cold, sweating. Couldn't get comfortable. EMR reflects he has connection and possible treatment plan with a hospital for liver ca, a new diagnosis. Following for post hospital care plan for this visit.
[2018-11-17] MEDS: SUCRALFATE 1 GM (CARAFATE) TAB PO SCH ×3 (11:07→20:32)
[2018-11-17] MEDS ORDERED: NS IV 500 ML 500 ML IV SCH (11:09)
--- NOTE | 2018-11-17 11:33 | Pulmonary Progress Note ---
Subjective Time Seen by a Provider: 11:33 Sepsis Event Evaluation Height, Weight, BMI Height: 5'7.00" Weight: 186lbs. 7.0oz. 84.308275ov; 29.2 BMI Method:Stated Focused Exam Lactate Level 11/16/18 09:06: Lactic Acid Level 2.14*H 11/16/18 11:04: Lactic Acid Level 1.26 Exam Exam Vital Signs Date Time Temp Pulse Resp B/P (MAP) Pulse Ox O2 Delivery O2 Flow Rate FiO2 11/17/18 08:30 99.2 96 19 132/63 (86) 97 Room Air 11/17/18 08:00 Room Air 11/17/18 07:00 93 11/17/18 04:00 98.1 102 22 116/64 (81) 91 Room Air 11/17/18 01:00 110 11/17/18 00:03 99.6 105 22 117/72 (87) 95 Room Air 11/16/18 20:32 99.4 89 19 120/66 (84) 96 Room Air 11/16/18 20:00 Room Air 11/16/18 19:00 91 11/16/18 15:53 98.7 81 19 131/68 (89) 94 Room Air 11/16/18 14:33 Room Air 11/16/18 12:56 81 11/16/18 11:54 98.4 81 20 123/73 (90) 97 Room Air 11/16/18 11:54 98.4 81 20 123/73 97 Room Air 11/16/18 11:50 99.0 85 16 113/62 (79) 97 I & O 11/17/18 07:00 Intake Total 3961 ml Balance 3961 ml Height & Weight Height: 5'7.00" Weight: 186lbs. 7.0oz. 84.638520ys; 29.2 BMI Method:Stated General Appearance: WD/WN, Chronically ill, Obese HEENT: Normal ENT Inspection, Moist Mucous Membranes; No Scleral Icterus (L), No Scleral Icterus (R) Neck: Normal Inspection, Non Tender, Supple; No Lymphadenopathy (L), No Lymphadenopathy (R) Respiratory: No Chest Non Tender; Lungs Clear, Normal Breath Sounds; No No Accessory Muscle Use; No Respiratory Distress Cardiovascular: Regular Rate, Rhythm, No Edema, No Gallop, No Murmur, Normal Peripheral Pulses Capillary Refill: Less Than 3 Seconds Gastrointestinal: normal bowel sounds, non tender, soft Extremity: Normal Inspection, No Pedal Edema Neurologic/Psychiatric: Alert, Oriented x3, Normal Mood/Affect Skin: Cool, Jaundice, Pallor Results Lab Laboratory Tests 11/16/18 09:06 11/17/18 04:30 Assessment/Plan Assessment/Plan Severe sepsis -Singh culture, UA is pending -CXR is clear -Pt is not requiring oxygen -Cefepime, and Vanco -IVF Recent liver Adenocarcinoma diagnosed Recent PE dx 81 -Xarelto -Now on hold secondary to anemia Hb 6.6 -I agree with IVC filter if pt is agreeable Hyponatremia -Monitor Anemia -Monitor GARETT CHÁVEZ DO Nov 17, 2018 11:33
--- NOTE | 2018-11-17 11:36 | NUR ---
PALLIATIVE CARE RN in at request of Dr. George because he was saying things about not wanting to do anything more but his kids want him too. I spoke to him and he mimicked the same to me. He reports he is not afraid of dying and if it were up to him he would just go home. We talked a bit about this and that he would know when it its time to make the decision. He is already a NO CODE BLUE. He reported that he had not had a BM for 5 days and this is reported to Dr. George. I will continue to visit with him offering support as needed.
[2018-11-17] MEDS: HYDROcodone/APAP 5 MG/325 MG (LORTAB) TAB PO PRN ×2 (11:45→17:10)
[2018-11-17] MEDS ORDERED: SENNA W/DOCUSATE (SENOKOT S) TABLET PO PRN (11:45)
--- NOTE | 2018-11-17 14:17 | NUR ---
Initial visit with pt's sons. They shared they were not sure how the pt was doing, but they sensed it was not good. I provided empathic listening for anticipatory grief and caregiver burden, then offered followup support as desired. The pt was in the restroom at this time.
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
--- NOTE | 2018-11-17 21:31 | NUR ---
THIS RN TALKED TO PT'S DAUGHTER (YAZMIN RAPP) VIA TELEPHONE ABOUT PT'S CLEAR LIQUID DIET. PT'S DAUGHTER WANTED TO KNOW WHY PT IS ON A CLEAR LIQUID DIET. I INFORMED HER THAT AT THE TIME I WAS UNSURE BUT I WOULD CONTACT THE DOCTOR AND SEE WHY AND IF WE COULD CHANGE PT TO A REGULAR DIET. I CONTACTED DR. ANDRADE AND ASKED IF HE COULD BE CHANGED TO A REGULAR DIET AND HE REPLIED "NO. HE'S ANEMIC AND NEEDS TO BE WATCHED INCASE I NEED TO DO A SCOPE IF HEMOGLOBIN KEEPS DROPPING." I CALLED THE PT'S DAUGHTER BACK TO INFORM HER OF WHAT DR. ANDRADE SAID. PT REPLIED WITH "OK, WE ARE LOOKING INTO GETTING HIM TRANSFERRED. DR. ANDRADE IS THE ONE WHO STARVED HIM LAST TIME."
--- NOTE | 2018-11-17 23:11 | NUR ---
THIS RN ASSESSED PT'S RESPIRATORY STATUS. PT CONDITION UNCHANGED, LUNG SOUNDS MORE PROMINENT BUT OTHERWISE UNCHANGED. PT COOPERATIVE WITH TAKING ORAL MILK OF MAGNESIA. WILL CONTINUE TO MONITOR.
[2018-11-18 00:55] VITALS: BP 121/72
[2018-11-18] MEDS: HYDROcodone/APAP 5 MG/325 MG (LORTAB) TAB PO PRN ×3 (01:07→14:31)
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
--- NOTE | 2018-11-18 01:48 | NUR ---
REASSESSMENT OF PT FOLLOWING PAIN MEDICATION ADMINISTRATION RESULTED IN PT STILL C/O 10/10 PAIN[address] THIS RN [address]ED DR. FLORES AND INFORMED HIM THAT PT IS HERE WITH PNEUMONIA AND SEPSIS, HAS ADENOCARCINOMA OF THE LIVER, AND BILATERAL PE'S. THIS RN ALSO NOTIFIED DR. FLORES THAT FOLLOWING ADMINISTRATION OF PAIN MEDICATION THE RESULT WAS STILL A 10/10 PAIN RATING. NEW ORDERS OBTAINED FOR 0.5MG DILAUDID Q4H. WILL CONTINUE TO MONITOR PT.
[2018-11-18] MEDS ORDERED: HYDROmorphone 2 MG/ML VIAL (DILAUDID) IV PRN (02:00)
[2018-11-18] MEDS: CEFEPIME 1,000 MG/SWFI 10 ML IV PUSH IV SCH ×8 (02:39→20:45)
[2018-11-18] MEDS: VANCOMYCIN 1 GM/NS 250 ML IVPB IV SCH ×2 (02:43)
[2018-11-18] MEDS ORDERED: HYDROmorphone 2 MG/ML VIAL (DILAUDID) ONE (02:56)
[2018-11-18] MEDS: NS IV 1000 ML 1,000 ML IV SCH ×2 (03:17→07:48)
[2018-11-18 04:30] VITALS: BP 110/59
[2018-11-18 06:07] LABS: BASOPHILS % (AUTO) 0 % (0-10); EOSINOPHILS # (AUTO) 0.2 10^3/uL (0.0-0.3); EOSINOPHILS % (AUTO) 1 % (0-10); HEMATOCRIT 25 % (40-54); HEMOGLOBIN 7.5 G/DL (13.3-17.7); LYMPHOCYTES # (AUTO) 1.6 X 10^3 (1.0-4.0); LYMPHOCYTES % (AUTO) 8 % (12-44); MEAN CORPUSCULAR HEMOGLOBIN 22 PG (25-34); MEAN CORPUSCULAR HGB CONC 30 G/DL (32-36); MEAN CORPUSCULAR VOLUME 73 FL (80-99); MEAN PLATELET VOLUME 8.5 FL (7.4-10.4); MONOCYTES % (AUTO) 10 % (0-12); NEUTROPHILS % (AUTO) 80 % (42-75); PLATELET COUNT 448 10^3/uL (130-400); RED CELL DISTRIBUTION WIDTH 22.9 % (10.0-14.5); WHITE BLOOD COUNT 18.7 10^3/uL (4.3-11.0)
[2018-11-18] MEDS: LACTOBACILLUS ACIDOPHILUS (PROBIOTIC) CAPSULE PO SCH ×3 (06:11→16:55)
[2018-11-18] MEDS: SUCRALFATE 1 GM (CARAFATE) TAB PO SCH ×4 (06:11→20:44)
[2018-11-18 06:33] LABS: BUN/CREATININE RATIO 19; CALCIUM 8.2 MG/DL (8.5-10.1); CARBON DIOXIDE 22 MMOL/L (21-32); CHLORIDE 101 MMOL/L (98-107); CREATININE SERUM 0.72 MG/DL (0.60-1.30); GFR ESTIMATED > 60; GLUCOSE 73 MG/DL (70-105); SODIUM 132 MMOL/L (135-145)
--- NOTE | 2018-11-18 07:30 | Progress Note - Surgery ---
ATIYA ESPINO,MED STUDENT 11/18/18 0730: Subjective Date Seen by a Provider: Nov 18, 2018 Time Seen by a Provider: 07:10 Subjective/Events-last exam Patient complains of ongoing abdominal and right-sided rib pain. His abdominal pain is primarily located in the RUQ and epigastric region. He also reports chest pain that has been his baseline since his hospital stay 2 weeks ago. He has stated several times that he does not wish to do anything further. Hgb up to 7.5 from 6.6 yesterday. Tolerating clear liquid diet and is taking protonix. He wishes to advance his diet. On cefepime and vancomycin. Focused Exam Lactate Level 11/16/18 09:06: Lactic Acid Level 2.14*H 11/16/18 11:04: Lactic Acid Level 1.26 Objective Exam Vital Signs Date Time Temp Pulse Resp B/P (MAP) Pulse Ox O2 Delivery O2 Flow Rate FiO2 11/18/18 07:00 77 11/18/18 04:30 97.2 82 18 110/59 (76) 97 Room Air 11/18/18 01:00 98 11/18/18 00:55 99.9 99 18 121/72 (88) 95 Room Air 11/17/18 23:49 Room Air 11/17/18 20:00 98.0 92 18 100/59 (73) 91 Room Air 11/17/18 20:00 Room Air 11/17/18 19:00 106 11/17/18 16:00 99.0 95 18 115/66 (82) 91 Room Air 11/17/18 15:06 99.4 93 20 113/70 97 Room Air 11/17/18 14:26 99.7 11/17/18 14:00 99.7 11/17/18 12:48 99 11/17/18 12:35 100.4 105 18 124/77 97 Room Air 11/17/18 12:17 100.2 103 20 130/76 95 Room Air 11/17/18 11:35 100.4 97 22 127/74 (91) 94 Room Air 11/17/18 08:30 99.2 96 19 132/63 (86) 97 Room Air 11/17/18 08:00 Room Air I & O 11/18/18 07:00 Intake Total 6398 ml Output Total 400 ml Balance 5998 ml Capillary Refill : Less Than 3 Seconds General Appearance: No Apparent Distress, WD/WN, Chronically ill HEENT: PERRL/EOMI, Pharynx Normal; No Scleral Icterus (L), No Scleral Icterus (R) Neck: Normal Inspection, Non Tender, Supple; No Lymphadenopathy (L), No Lymphadenopathy (R) Respiratory: No Accessory Muscle Use, No Respiratory Distress Cardiovascular: Regular Rate, Rhythm, No Edema, Normal Peripheral Pulses Gastrointestinal: tenderness (moderate ruq/epigastric region) Extremity: Normal Inspection, No Pedal Edema Neurologic/Psychiatric: Alert, No Motor/Sensory Deficits, Normal Mood/Affect Skin: Warm/Dry, Pallor Lymphatic: No Adenopathy Results Lab Laboratory Tests 11/18/18 05:15: White Blood Count 18.7H, Red Blood Count 3.45L, Hemoglobin 7.5L, Hematocrit 25L, Mean Corpuscular Volume 73L, Mean Corpuscular Hemoglobin 22L, Mean Corpuscular Hemoglobin Concent 30L, Red Cell Distribution Width 22.9H, Platelet Count 448H, Mean Platelet Volume 8.5, Neutrophils (%) (Auto) 80H, Lymphocytes (%) (Auto) 8L, Monocytes (%) (Auto) 10, Eosinophils (%) (Auto) 1, Basophils (%) (Auto) 0, Neutrophils # (Auto) 15.0H, Lymphocytes # (Auto) 1.6, Monocytes # (Auto) 2.0H, Eosinophils # (Auto) 0.2, Basophils # (Auto) 0.0 11/18/18 06:00: Sodium Level 132L, Potassium Level 4.0, Chloride Level 101, Carbon Dioxide Level 22, Anion Gap 9, Blood Urea Nitrogen 14, Creatinine 0.72, Estimat Glomerular Filtration Rate > 60, BUN/Creatinine Ratio 19, Glucose Level 73, Calcium Level 8.2L Microbiology 11/16/18 Blood Culture - Preliminary, Resulted No growth Assessment/Plan Assessment/Plan Assessment/Plan Abdominal pain ruq/epigastric Shortness of breath Gastritis with healing ambar ulcers by endoscopy 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 Wanting food. Hgb up today. He is not wanting to do much further in regards to treatment he states. He is not having any nausea or vomiting. 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 not really wanting to do much in terms of overall treatment. He wants his daughter to help with decisions though. She will be here tomorrow he states. patient wanting food since increase in hgb will advance diet. continue medical management oncology consulted and will see Supervisory-Addendum Brief Verification & Attestation Participated in pt care: history, MDM, physical Personally performed: exam, history, MDM, supervision of care Care discussed with: Medical Student Procedures: n/a Results interpretation: Verified all documentation Verification and Attestation of Medical Student E/M Service A medical student performed and documented this service in my presence. I reviewed and verified all information documented by the medical student and made modifications to such information, when appropriate. I personally performed the physical exam and medical decision making. Genesis Kaminski, Nov 18, 2018,16:51 ATIYA ESPINO,MED STUDENT Nov 18, 2018 07:30 GENESIS KAMINSKI DO Nov 18, 2018 16:52
[2018-11-18 07:45] VITALS: BP 119/66
[2018-11-18] MEDS: PANTOPRAZOLE 40 MG (PROTONIX) VIAL IV SCH (09:00)
--- NOTE | 2018-11-18 10:46 | Pulmonary Progress Note ---
Sepsis Event Evaluation Height, Weight, BMI Height: 5'7.00" Weight: 186lbs. 7.0oz. 84.060758ee; 29.2 BMI Method:Stated Focused Exam Lactate Level 11/16/18 09:06: Lactic Acid Level 2.14*H 11/16/18 11:04: Lactic Acid Level 1.26 Exam Exam Vital Signs Date Time Temp Pulse Resp B/P (MAP) Pulse Ox O2 Delivery O2 Flow Rate FiO2 11/18/18 08:22 93 Nasal Cannula 2.00 11/18/18 07:45 97.4 84 18 119/66 (83) 96 Nasal Cannula 2.00 11/18/18 07:00 77 11/18/18 04:30 97.2 82 18 110/59 (76) 97 Room Air 11/18/18 01:00 98 11/18/18 00:55 99.9 99 18 121/72 (88) 95 Room Air 11/17/18 23:49 Room Air 11/17/18 20:00 98.0 92 18 100/59 (73) 91 Room Air 11/17/18 20:00 Room Air 11/17/18 19:00 106 11/17/18 16:00 99.0 95 18 115/66 (82) 91 Room Air 11/17/18 15:06 99.4 93 20 113/70 97 Room Air 11/17/18 14:26 99.7 11/17/18 14:00 99.7 11/17/18 12:48 99 11/17/18 12:35 100.4 105 18 124/77 97 Room Air 11/17/18 12:17 100.2 103 20 130/76 95 Room Air 11/17/18 11:35 100.4 97 22 127/74 (91) 94 Room Air I & O 11/18/18 07:00 Intake Total 6398 ml Output Total 400 ml Balance 5998 ml Height & Weight Height: 5'7.00" Weight: 186lbs. 7.0oz. 84.889762ao; 29.2 BMI Method:Stated General Appearance: No Apparent Distress, WD/WN, Chronically ill HEENT: PERRL/EOMI, Pharynx Normal Neck: Normal Inspection, Non Tender, Supple Respiratory: No Accessory Muscle Use, No Respiratory Distress Cardiovascular: Regular Rate, Rhythm, No Edema, Normal Peripheral Pulses Capillary Refill: Less Than 3 Seconds Gastrointestinal: tenderness Extremity: Normal Inspection, No Pedal Edema Neurologic/Psychiatric: Alert, No Motor/Sensory Deficits, Normal Mood/Affect Skin: Warm/Dry, Pallor Lymphatic: No Adenopathy Results Lab Laboratory Tests 11/17/18 04:30 11/18/18 05:15 11/18/18 06:00 Assessment/Plan Assessment/Plan Severe sepsis -Singh culture -Cefepime, and Vanco -IVF Atelectasis -Increase activity Recent liver Adenocarcinoma diagnosed Recent PE dx 81 -Xarelto -Now on hold secondary to anemia Hb 6.6 -I agree with IVC filter if pt is agreeable Hyponatremia -Monitor Anemia -Monitor GARETT CHÁVEZ DO Nov 18, 2018 10:46
--- NOTE | 2018-11-18 10:53 | Progress Note - Hospitalist ---
Subjective HPI/CC On Admission Date Seen by Provider: Nov 18, 2018 Time Seen by Provider: 08:30 Pt is known to be from recent admission for large left sided PE, GI bleed, and newly diagnosed adenocarcinoma in the liver who presents due to shortness of breath and palpitations. He states it started abruptly and he had been doing very well after his discharge last week until this morning. He was discharged one Xarelto per our records though is unable to tell me what his anticoagulant is. He believes he's taking it. He also states he vomits after eating anything and does not look at the vomit so he is not sure if his pills are coming back up as well. Subjective/Events-last exam Pt reports feeling better today. No complaints. Discussed with daughter who is requesting possible transfer to [facility] for cancer evaluation. Discussed plan for oncology consult here and then reassessing that as it may not be covered by insurance since oncology services are available here. Daughter e xpressed understanding of process. Focused Exam Lactate Level 11/16/18 09:06: Lactic Acid Level 2.14*H 11/16/18 11:04: Lactic Acid Level 1.26 Objective Exam Vital Signs Vital Signs Date Time Temp Pulse Resp B/P (MAP) Pulse Ox O2 Delivery O2 Flow Rate FiO2 11/18/18 12:28 97.0 82 17 121/68 (85) 97 Nasal Cannula 2.00 11/16/18 11:20 21 Capillary Refill : Less Than 3 Seconds General Appearance: No Apparent Distress, Chronically ill Respiratory: Lungs Clear, No Respiratory Distress Cardiovascular: Regular Rate, Rhythm, No Murmur Gastrointestinal: Normal Bowel Sounds, Soft Neurologic/Psychiatric: Alert, Oriented x3 Results/Procedures Lab Laboratory Tests 11/18/18 05:15 11/18/18 06:00 Patient resulted labs reviewed. Imaging: Reviewed Imaging Report Assessment/Plan Assessment and Plan Assess & Plan/Chief Complaint Severe sepsis d/t suspected healthcare associated PNA- severe aspect resolved * Blood cultures NGTD, MRSA screen negative * DC Vanc * Cefepime Microcytic anemia * Iron study - consider IV iron when more stable * Responded appropriately to transfusion PE diagnosed 11/03 * Lovenox - Stopped because of anemia * Discussed possible IVC filter with patient and daughter and they declined at this time Chest pain * Troponin levels normal X 3 * likely d/t PEs adenocarcinoma of liver * consult oncology * I discussed daughter's concerns with Dr Berger today who will see him this afternoon [id number] * Fluids - hep lock * Nutrition - regular diet * GI ppx - PPI and carafate * PPX - SCDs only Diagnosis/Problems Diagnosis/Problems (1) Sepsis Status: Acute Qualifiers: Sepsis type: sepsis due to unspecified organism Sepsis acute organ dysfunct ion status: unspecified Qualified Codes: A41.9 - Sepsis, unspecified organism (2) Pneumonia Status: Acute Qualifiers: Pneumonia type: due to unspecified organism Laterality: unspecified laterality Lung location: unspecified part of lung Qualified Codes: J18.9 - Pneumonia, unspecified organism (3) History of pulmonary embolism (4) BPH (benign prostatic hyperplasia) Status: Chronic (5) Liver mass Status: Acute (6) Thrombocytosis Status: Acute (7) Normocytic anemia Status: Acute Clinical Quality Measures DVT/VTE Risk/Contraindication: Risk Factor Score Per Nursin RFS Level Per Nursing on Admit: 4+=Very High SIMIN LIGHT MD Nov 18, 2018 10:53 am
--- NOTE | 2018-11-18 11:45 | NUR ---
Pt's daughter here and [facility] and will come speak with her.
[2018-11-18 12:28] VITALS: BP 121/68
[2018-11-18] MEDS ORDERED: TROUGH ORDER-PHARMACY XX NR (13:30)
--- NOTE | 2018-11-18 14:40 | NUR ---
Notified Dr. George of temp of 101.1, Lortab given 10 minutes prior to taking temperature, Dr. George wants to see if the temp comes down with the Lortab, will monitor
[2018-11-18 16:00] VITALS: BP 122/76
--- NOTE | 2018-11-18 16:19 | NUR ---
CM/SS, responded to request for visit from family. Daughter Katharina Napoles is employed in as earlier noted. She would like patient transferred into care at [facility] for his newly found liver cancer. We discussed his diagnosis for this admission, pneumonia/sepsis, and that since our facility could provide adequate level of care for presenting issue it was unlikely we could find an accepting physician for transfer. It is understood that Katharina wants an oncologist in , the arrangement today was that Dr. Berger would round after his clinic hours and that he may be able to make a recommendation or facilitate an expedited consult with a specialist. Patient and daughter in agreement with this plan.
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
[2018-11-18 20:00] VITALS: BP 109/67
[2018-11-19] VITALS: BP 111/67
[2018-11-19] MEDS: NS IV 1000 ML 1,000 ML IV SCH (00:29)
[2018-11-19] MEDS: CEFEPIME 1,000 MG/SWFI 10 ML IV PUSH IV SCH ×2 (03:00)
[2018-11-19 04:00] VITALS: BP 109/64
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
--- NOTE | 2018-11-19 07:37 | Discharge Summary ---
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 He presented with shortness of breath and was found to have a leukocytosis, lactic acidosis, and crackles on exam. He was admitted and started on antibiotics for presumed pneumonia. Pulmonology was consulted. Despite broad-spectrum anti-biotics he remained subjectively short of breath though he required minimal oxygen and had intermittent fevers. He was found to be anemic with a hemoglobin of 6.6 and required 1 unit blood transfusion. General surgery and oncology were consulted. Because of his severe anemia Lovenox was held. I discussed this with patient and the potential need for an IVC filter but patient declined. He stated multiple times to me that he did not want any further workup or invasive measures. He did want me to discuss this with his daughter though. I called and spoke with his daughter and informed her of the recommendation for an IVC filter due to our inability to anticoagulate him for his blood clots. She and patient spoke and together they agreed that they would not want to proceed with an IVC filter. Due to this I did have palliative care consult. After transfusion with 1 unit his hemoglobin did rise appropriately. The morning of November 19 he abruptly developed bradycardia and then asystole. Discharge Diagnosis Pulmonary Embolus Sepsis due to Pneumonia Metastatic cancer of unknown origin (1) Sepsis Status: Acute Qualifiers: Qualified Codes: A41.9 - Sepsis, unspecified organism (2) Pneumonia Status: Acute Qualifiers: Qualified Codes: J18.9 - Pneumonia, unspecified organism (3) History of pulmonary embolism (4) BPH (benign prostatic hyperplasia) Status: Chronic (5) Liver mass Status: Acute (6) Thrombocytosis Status: Acute (7) Normocytic anemia Status: Acute SIMIN LIGHT MD Nov 19, 2018 07:37
--- NOTE | 2018-11-19 09:35 | NUR ---
home here, signed paperwork, belongings all left with daughter per her request.
== END 2018-11-19 09:35 | disposition expired | DRG 871 ==
LOC: EDUNIT# 08:53 → ER 08:54 → 4TH 10:21
PROVIDERS: ADMIT Family Medicine; ATTEND Family Medicine
DX: A41.9 Sepsis, unspecified organism (principal); R65.20 Severe sepsis without septic shock; J18.9 Pneumonia, unspecified organism; I26.99 Other pulmonary embolism without acute cor pulmonale; E87.1 Hypo-osmolality and hyponatremia; C78.7 Secondary malignant neoplasm of liver and intrahepatic bile duct; D50.0 Iron deficiency anemia secondary to blood loss (chronic); J98.11 Atelectasis; Z66 Do not resuscitate; C80.1 Malignant (primary) neoplasm, unspecified; K29.70 Gastritis, unspecified, without bleeding; K59.00 Constipation, unspecified; J30.2 Other seasonal allergic rhinitis; N40.0 Benign prostatic hyperplasia without lower urinary tract symptoms; F32.9 Major depressive disorder, single episode, unspecified; K25.9 Gastric ulcer, unspecified as acute or chronic, without hemorrhage or perforation; D47.3 Essential (hemorrhagic) thrombocythemia; Z79.01 Long term (current) use of anticoagulants; Z87.891 Personal history of nicotine dependence
CPT/HCPCS: 36415; 71045; 71046; 80048; 80053; 83605; 84484; 85007; 85025; 85027; 85610; 85730; 86850; 86900; 86901; 86920; 87040; 87070; 87081; 87205; 93005; 94760; 96361; 96374; 96375